=== PATIENT | female | born 1955 | race Caucasian/White ===

== ENCOUNTER 2022-06-17 15:00 | Outpatient (CLI) | payer MEDICARE, SELFPAY ==
--- NOTE | ~2022-06-17 | MM_ITS ---
EXAMINATION: MM screening [facility] [place] HISTORY: Screening mammogram TECHNIQUE: Craniocaudal and mediolateral oblique 3-D tomosynthesis images were obtained and synthetic 2-D images were generated. CAD analysis was submitted and interpreted. COMPARISON: 04/16/2021, 01/08/2020, 11/01/2017 BREAST PARENCHYMAL COMPOSITION: There are scattered areas of fibroglandular density. FINDINGS: No suspicious mass, calcification, or architectural distortion are identified in either [place] ast to suggest malignancy. There has been no suspicious interval change. IMPRESSION: 1. No mammographic evidence of malignancy. 2. Recommend routine screening mammography in one year. BI-RADS Category 1: Negative Reviewed, dictated and finalized at location A. [employer]
== END 2022-06-17 15:01 | disposition home or self-care (01) ==
LOC: ANHIMG 15:03
PROVIDERS: PCP Family Medicine; Visit Provider Obstetrics & Gynecology
DX: Z12.31 Encounter for screening mammogram for malignant neoplasm of breast (principal)
CPT/HCPCS: 77063; 77067

== ENCOUNTER 2023-08-13 08:49 | Outpatient (CLI) | payer MEDICARE, SELFPAY ==
--- NOTE | ~2023-08-13 | MM_ITS ---
EXAMINATION: MM screening [facility] [place] HISTORY: Screening mammogram TECHNIQUE: Craniocaudal and mediolateral oblique 3-D tomosynthesis images were obtained and synthetic 2-D images were generated. CAD analysis was submitted and interpreted. COMPARISON: 06/17/2022, 04/16/2021 bilateral screening mammogram examinations BREAST PARENCHYMAL COMPOSITION: There are scattered areas of fibroglandular density. FINDINGS: Biopsy marker on the left; history of prior benign left breast biopsy. Occasional bilateral benign calcifications. There is no evidence of suspicious mass, calcification, o r architectural distortion to suggest malignancy in either breast. There has been no suspicious inter devon change. IMPRESSION: 1. No mammographic evidence of malignancy. 2. Recommend routine screening mammography in one year. BI-RADS Category 2: Benign finding(s). Reviewed, dictated and finalized at location A.
== END 2023-08-13 08:50 | disposition home or self-care (01) ==
LOC: ANHIMG 08:51
PROVIDERS: PCP Family Medicine; Visit Provider Obstetrics & Gynecology
DX: Z12.31 Encounter for screening mammogram for malignant neoplasm of breast (principal)
CPT/HCPCS: 77063; 77067

== ENCOUNTER 2024-08-14 14:55 | Outpatient (CLI) | payer MEDICARE, SELFPAY ==
--- NOTE | ~2024-08-14 | MM_ITS ---
EXAMINATION: MM screening but[facility] BI [place] HISTORY: Screening TECHNIQUE: Craniocaudal and mediolateral oblique 3-D tomosynthesis images were obtained and synthetic 2-D images were generated. CAD analysis was submitted and interpreted. COMPARISON: Comparison to multiple prior studies sequentially, with oldest reviewed study dated 11/09. BREAST PARENCHYMAL COMPOSITION: Not dense: There are scattered areas of fibroglandular density. FINDINGS: There is no evidence of suspicious mass, calcification, or architectural distortion to sugg est malignancy in either breast. There has been no suspicious interval change. IMPRESSION: 1. No mammographic evidence of malignancy. 2. Recommend routine screening mammography in one year. BI-RADS Category 1: Negative Reviewed, dictated and finalized at location A.
--- OUTSIDE RECORDS SUMMARY | 2024-08-14 15:34 | XMS_ITS | Referral Summary ---
Author Organization [place] [id number] [facility] Address [address] [place] [address] Care Team Providers Care Application Development Director Name Role Phone Rica Uriarte MD Primary Care Provider [phone] Dereck Meza MD Unavailable [phone] Danielle Gomez MD Unavailable Fly Onofre MD Unavailable [phone] Encounters Date Type Department Care Team Description 08/07/2024 1:00 PM CDT Office Visit [facility] Otolaryngology [address] [place] [address] Rosario Clinton, EDITA Non-seasonal allergic rhinitis due to pollen (Primary Dx); Nasal septal perforation 07/28/2024 Telephone [facility] Cardiology [address] [facility] [address] [place] [address] Al Kaplan MD Test Results 07/17/2024 3:30 PM CDT Therapy [facility] OP Physical Therapy [address] [place] [address] [address] [place] [address] Spinal stenosis, unspecified spinal region 07/11/2024 12:00 PM CDT Office Visit [facility] Neurology [facility] [facility] [address] [place] [address] Hardy Keane Si, MD Essential tremor (Primary Dx); Tourettes syndrome; Migraine without aura and without status migrainosus, not intractable 07/10/2024 9:42 AM CDT - 07/10/2024 11:59 PM CDT Hospital Encounter [facility] Nuclear Medicine [address] [place] [address] Discharge Disposition: Discharge to home or self care 07/10/2024 9:41 AM CDT - 07/10/2024 11:59 PM CDT Hospital Encounter [facility] Nuclear Medicine [address] [place] [address] Discharge Disposition: Discharge to home or self care 07/10/2024 9:41 AM CDT - 07/10/2024 11:59 PM CDT Hospital Encounter [facility] Nuclear Medicine [address] [place] [address] Discharge Disposition: Discharge to home or self care 07/10/2024 9:41 AM CDT - 07/10/2024 11:59 PM CDT Hospital Encounter [facility] Nuclear Medicine [address] [place] [address] Aortic valve sclerosis; Benign essential hypertension; Paroxysmal atrial fibrillation (HCC); Diastolic dysfunction; Incomplete right bundle branch block; Pure hypercholesterolemia ; Precordial chest pain; Obstructive sleep apnea syndrome; Morbid obesity (HCC) Discharge Disposition: Discharge to home or self care 07/07/2024 1:10 PM CDT - 07/07/2024 11:59 PM CDT Hospital Encounter [facility] OP Cardiac Testing [address] [place] [address] Aortic valve sclerosis; Benign essential hypertension; Paroxysmal atrial fibrillation (HCC); Diastolic dysfunction; Incomplete right bundle branch block; Pure hypercholesterolemia ; Precordial chest pain; Obstructive sleep apnea syndrome; Morbid obesity (HCC) Discharge Disposition: Discharge to home or self care 07/04/2024 11:32 AM CDT - 07/04/2024 11:59 PM CDT Hospital Encounter [facility] Respiratory [address] [place] [address] Moderate persistent asthma without complication; Non-seasonal allergic rhinitis due to pollen; Periodic limb movement disorder; Obstructive sleep apnea syndrome; History of bariatric surgery; Nonsmoker; Psychophysiological insomnia Discharge Disposition: Discharge to home or self care 06/22/2024 11:30 AM CDT Office Visit [facility] [address] [facility] [address] [place] [address] Al Kaplan MD Aortic valve sclerosis (Primary Dx); Benign essential hypertension; Paroxysmal atrial fibrillation (HCC); Diastolic dysfunction; Incomplete right bundle branch block; Pure hypercholesterolemia ; Precordial chest pain; Obstructive sleep apnea syndrome; Morbid obesity (HCC) 06/12/2024 10:20 AM SECURITY OPERATIONS C[facility] ANALYST Lab [facility] Lab [address] [place] [address] Paroxysmal atrial fibrillation (HCC); Diastolic dysfunction; Aortic valve sclerosis; Incomplete right bundle branch block; Benign essential hypertension; Pure hypercholesterolemia ; Obstructive sleep apnea syndrome; Morbid obesity (HCC) 06/02/2024 10:30 AM SECUR[employer] OPERATIONS C[employer] ANALYST Office Visit [facility] [address] [facility] [address] [place] [id number] Kulwinder De La Torre PA Impingement syndrome of right shoulder (Primary Dx); Impingement syndrome of left shoulder from Last 3 Months Allergies Active Allergy Reactions Criticality Noted Date Comments Cephalosporins Rash,Hives Medium 08/23/2018 Codeine Nausea & Vomiting Low 02/07/2019 Codeine Phosphate Rash Medium 09/24/2011 codeine phosphate Fluoxetine Hives,Unknown,Rash Medium 08/22/2018 Other Hives Medium 07/11/2024 Pseudoephedrine Unknown,Other (See comments) 10/01/2022 pseudoephedrine Sulfa (Sulfonamide Antibiotics) Rash Medium 09/09/2010 Medications cholecalcifero l (VITAMIN D-3) 1,000 unit tablet Take 1 tablet (1,000 Units total) by mouth 2 (two) times a day Active vitamin b complex tablet Take 1 tablet by mouth daily Active lovastatin (MEVACOR) 40 mg tablet Take 1 tablet (40 mg total) by mouth nightly 10/18/19 16 Active traZODone (DESYREL) 50 mg tablet Take 1 tablet (50 mg total) by mouth nightly Active lansoprazole (PREVACID) 30 mg capsule Take 1 capsule (30 mg total) by mouth 2 (two) times a day Active valACYclovir (VALTREX) 1 gram tablet as needed Active ascorbic acid (OSIRIS-C ORAL) Take 1 capsule by mouth daily Active BIOTIN ORAL Take 1 tablet/capsul e by mouth daily Active multivitamin-i ally-folic acid 18-400 mg-mcg tablet Take 1 tablet by mouth daily Active coenzyme Q10 30 mg capsule Take 1 capsule (30 mg total) by mouth daily Active baclofen (LIORESAL) 10 mg tablet Take 1 tablet (10 mg total) by mouth 2 (two) times a day Takes once or twice a day 04/09/20 23 Active glucosamine-ch ondroitin 500-400 mg tablet Take 1 tablet by mouth 2 (two) times a day Active CALCIUM ORAL Take 1 tablet/capsul e by mouth daily Active magnesium gluconate 200 mg tabletIndicati ons:hypomagnes emia Take 1 tablet (200 mg total) by mouth daily Active albuterol HFA (PROVENTIL HFA,VENTOLIN HFA,PROAIR HFA) 90 mcg/actuation inhaler Inhale 2 puffs as needed for wheezing or shortness of breath 1 each 3 09/08/19 24 Active traMADoL (ULTRAM) 50 mg tablet TAKE 1 TABLET 3 TIMES A DAY BY ORAL ROUTE NEEDED. 10/03/19 24 Active apixaban (Eliquis) 5 mg tablet TAKE 1 TABLET BY MOUTH TWICE A DAY 180 tablet 2 02/14/20 24 Active propranoloL (INDERAL) 20 mg tabletIndicati ons:Essential tremor Take 1 tablet (20 mg total) by mouth 2 (two) times a day 180 tablet 3 07/12/19 25 026 Active haloperidoL (HALDOL) 2 mg tablet Take 1 tablet (2 mg total) by mouth 2 (two) times a day 180 tablet 3 07/12/19 25 026 Active sertraline (ZOLOFT) 50 mg tablet Take 1 tablet (50 mg total) by mouth nightly 90 tablet 3 07/12/19 25 026 Active lisinopriL (PRINIVIL,ZEST RIL) 20 mg tablet TAKE 1 TABLET BY MOUTH EVERY DAY 90 tablet 1 08/05/19 25 Active fluticasone-um eclidin-vilant er (Trelegy Ellipta) 100-62.5-25 mcg inhaler INHALE 1 PUFF DAILY 90 each 08/09/19 25 025 Active azelastine (ASTELIN) 137 mcg (0.1 %) nasal spray ADMINISTER 1 SPRAY INTO EACH NOSTRIL 2 TIMES A DAY DIRECTED 30 mL 3 08/15/19 25 Active fluticasone-um eclidin-vilant er (Trelegy Ellipta) 100-62.5-25 mcg inhaler Inhale 1 puff daily 90 each 3 04/29/19 24 025 Discontinued lisinopriL (PRINIVIL,ZEST RIL) 20 mg tablet TAKE 1 TABLET BY MOUTH EVERY DAY 90 tablet 1 12/14/19 24 025 Discontinued ipratropium (ATROVENT) 42 mcg (0.06 %) nasal spray Administer 2 sprays into each nostril 4 (four) times a day 15 mL 3 03/02/20 24 025 Discontinued(Lj cueto Reported) Active Problems Problem Noted Date Diagnosed Date Precordial chest pain 06/22/2024 Arthritis of left knee 09/16/2023 Presence of left artificial knee joint Instability of right knee joint 05/17/2023 Depression, unspecified 04/12/2023 Other intervertebral disc degeneration, lumbar r egion 04/12/2023 Spondylosis without myelopat hy or radiculopathy, lumbar region 04/12/2023 Tremor, unspecified 04/12/2023 Tourette's disorder 04/12/2023 Pulmonary air trapping 03/18/2023 Other thrombophilia 02/08/2023 Mass of neck 11/05/2022 Nasal septum ulceration 08/19/2022 Epistaxis 07/29/2022 Nasal septal perforation 07/29/2022 Wheezing 03/24/2022 Impingement syndrome of left shoulder 11/26/2021 Migraine without aura and wi thout status migrainosus, not intractable 05/27/2021 Pes anserinus bursitis of right knee 02/19/2021 Chronic tension-type headache, not intractable 0 12/17/2020 Assessment & Plan (12/17/2020 11:43 AM CDT): Patient's history of episodic headaches with historical description most consistent with episodic muscle contraction type headache. Over the past couple weeks the headache has subsided spontaneously. Her examination is neurologically unchanged. Observation from the neurological standpoint is most appropriate. She will follow-up per her previous scheduled appointment in May 2021. Magnetic resonance imaging of brain abnormal 10/2020 Assessment & Plan (12/17/2020 11:43 AM CDT): Patient underwent MRI which by reviewed report demonstrates increased fluid in the optic nerve sheaths bilaterally. Etiology of this is indeterminate at this time. I have recommended that at the time of her May 2019 to follow-up she can pursue a follow-up MRI brain with and without contrast for interval reassessment. If still present she may need a Neuro-Ophthalmology referral as well. Prediabetes 04/06/2020 Essential tremor 12/05/2019 Assessment & Plan (12/17/2020 11:42 AM CDT): Patient continues on propranolol for tremor suppression at this time with good tolerability and efficacy. She will keep her follow-up appointment in May 2021 for reassessment. Assessment & Plan (06/06/2020 4:00 PM SECUR[employer]PERATIONS [employer] ANALYST): Patient's history of essential tremor and gets good symptomatic relief with propranolol 20 mg b.i.d.. She has no tolerability issues with medication. She is in need of refill. I have renewed her propranolol as previously prescribed. I will see her back in 1 year. Assessment & Plan (12/05/2019 3:39 PM CDT): Patient has good suppression of essential tremor in her upper limbs with propranolol 20 mg b.i.d.. She has no tolerability issues with medication. I have renewed her propranolol 20 mg b.i.d. with a 90 day supply and 3-90 day refill extensions. Asbestos exposure 10/17/2019 BMI 40.0-44.9, adult 10/17/2019 Decreased diffusion capacity 06/13/2019 Dyspnea 06/13/2019 Exercise hypoxemia 06/13/2019 Incomplete right bundle branch block 05/01/2019 Osteoarthritis of left knee 12/05/2018 History of total knee arthroplasty 09/27/2018 Aftercare following right knee joint replacement surgery 09/27/2018 Encounter for removal of andrew 09/27/2018 Mild intermittent asthma without complication Hiatal hernia 08/23/2018 LAP-BAND surgery status 08/23/2018 Periodic limb movement disorder 08/23/2018 Aortic valve sclerosis 08/23/2018 Diastolic dysfunction 08/23/2018 Psychophysiological insomnia 08/23/2018 Non-seasonal allergic rhinitis due to pollen 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 0 08/22/2018 Hay fever 08/22/2018 Moderate recurrent major depression 10/14/2017 Obstructive sleep apnea syndrome 08/16/2017 Chronic atrial fibrillation 07/19/2017 Edema of lower extremity 05/11/2016 History of bariatric surgery 01/24/2016 Neck pain 01/09/2016 Overview (10/01/2023): Location: None;Severity: Moderate;Progress: Stable;Added By: Tammy Monaco;Add to Current Problems: YES Spinal stenosis in cervical region 12/12/2015 Restless legs 12/12/2015 Gastro-esophageal reflux disease without esophag itis 10/18/2015 Actinic keratosis 01/17/2015 Overview (08/30/2023): Location: None;Severity: Moderate;Progress: Stable;Added By: Rica Uriarte;Add to Current Problems: YES Candidal vulvovaginitis 01/17/2015 Overview (08/30/2023): Location: None;Severity: Moderate;Progress: Stable;Added By: Rica Uriarte;Add to Current Problems: YES Vitamin D deficiency 01/17/2015 Overview (10/01/2023): Location: None;Severity: Moderate;Progress: Stable;Added By: Rica Uriarte;Add to Current Problems: YES Bronchopneumonia 12/10/2014 Overview (08/30/2023): Location: None;Severity: Moderate;Progress: Stable;Added By: Rica Uriarte;Add to Current Problems: YES Fever 02/05/2014 Overview (10/01/2023): Location: None;Severity: Moderate;Progress: Stable;Added By: Rica Uriarte;Add to Current Problems: YES Location: None;Severity: Moderate;Progress: Stable;Added By: Tammy Monaco;Add to Current Problems: YES Cough 01/09/2014 Overview (08/30/2023): Location: None;Severity: Moderate;Progress: Stable;Added By: Rica Uriarte;Add to Current Problems: YES Dysuria 09/14/2013 Overview (10/01/2023): Location: None;Severity: Moderate;Progress: Stable;Added By: Evie Cheung;Add to Current Problems: NO Headache 08/18/2013 Overview (10/01/2023): Location: None;Severity: Moderate;Progress: Stable;Added By: Maddi Jade;Add to Current Problems: NO Otogenic otalgia 06/23/2013 Overview (10/01/2023): Location: None;Severity: Moderate;Progress: Stable;Added By: Maddi Jade;Add to Current Problems: NO Location: None;Severity: Moderate;Progress: Stable;Added By: Anahy Owens;Add to Current Problems: YES Fibromyositis 2012 Overview (10/01/2023): Location: None;Severity: Moderate;Progress: Stable;Added By: Tammy Monaco;Add to Current Problems: NO Local infection of skin and subcutaneous tissue 2012 Overview (10/01/2023): Location: None;Severity: Moderate;Progress: Stable;Added By: Kayley Pompa;Add to Current Problems: NO Pain in joint of left shoulder 07/21/2012 Overview (10/01/2023): Location: None;Severity: Moderate;Progress: Stable;Added By: Rica Uriarte;Add to Current Problems: NO Location: None;Severity: Moderate;Progress: Stable;Added By: Tammy Monaco;Add to Current Problems: NO Allergic rhinitis due to pollen 01/04/2012 Overview (10/01/2023): Location: None;Severity: Moderate;Progress: Stable;Added By: Adrienne Jalloh;Add to Current Problems: NO Benign essential hypertension 10/15/2011 Marquez de la Tourette's syndrome 10/15/2011 Assessment & Plan (12/17/2020 11:42 AM CDT): Patient continues with good tic suppression on haloperidol. She will continue present help. Dosing pending follow-up appointment in May 2021. Assessment & Plan (06/06/2020 3:59 PM SECUR[employer]PERATIONS [employer] ANALYST): Patient reports a reduction in motor tics following increase in haloperidol to 2 mg b.i.d.. She has no tolerability issues with medication is symptomatically pleased with her response. I have renewed her haloperidol as previously prescribed. I will see her back in the office in 1 year. Assessment & Plan (12/05/2019 3:40 PM CDT): Patient is a lifelong history of Tourette syndrome historically manifest as motor tics of the head neck. She has been using haloperidol 1 mg b.i.d. for a long time, but has been recently noticing under stressful situations an increase in dkus-fl-jhac head turning. She is interested in a potential increase in medication to try to suppress the head turning tic. I will increase her haloperidol 2 mg b.i.d. with a 1 month supply and 5 one- month refill extensions. I will see her back in 6 months for reassessment of the medication adjustment. Low back pain 10/15/2011 Pure hypercholesterolemia 10/15/2011 Overview (10/01/2023): Location: None;Severity: Moderate;Progress: Stable;Added By: Aide Mcpherson;Add to Current Problems: YES Location: None;Severity: Moderate;Progress: Stable;Added By: Rica Uriarte;Add to Current Problems: YES Bronchospasm 10/15/2011 Overview (08/30/2023): Location: None;Severity: Moderate;Progress: Stable;Added By: Rica Uriarte;Add to Current Problems: NO Low back pain 10/15/2011 Overview (10/01/2023): Location: None;Severity: Moderate;Progress: Stable;Added By: Tammy Monaco;Add to Current Problems: YES Nonsmoker 02/23/2011 Uncomplicated asthma 09/09/2010 Morbid obesity 06/04/2010 Resolved Problems Problem Noted Date Diagnosed Date Resolved Date Restrictive lung disease 09/06/201806/2019 Immunizations Immunization Administration Dates Next Due Influenza, Quadrivalent, Hig h Dose, Preservative Free, Intrr 02/02/2023 Influenza, Quadrivalent, Spl it, Intramuscular 01/07/2020,03/06/2019,03/08/2018,02/08,01/16/2016,01/17/2015 Influenza, Quadrivalent, Spl it, Preservative Free, Intramuscular 01/07/2020 Influenza, Trivalent, IM (MDV) 01/18/2014,2012 Influenza, Trivalent, Split, Preservative Free, Intradermal 02/03/2012 Pfizer SARS-CoV-2 Monovalent Vaccination (12+ Yrs) PURPLE 01/22/2021,06/18/2020,05/28/2020 Pneumococcal Conjugate PCV 13 01/17/2015 Pneumococcal Polysaccharide PPV23 01/22/2004 Td, adsorbed 01/23/2005 Tdap 01/17/2015 ZOSTER LIVE 02/08/2017 Social History Tobacco Use Types Packs/Day Years Used Date Smoking Tobacco: Never Smokeless Tobacco: Never Tobacco Cessation:Counseling Given: Not Answered Alcohol Use Standard Drinks/Week Comments Not Currently 0 (1 standard drink = 0.6 oz pur e alcohol) [facility] Utilities Answer Date Recorded In the past 12 months has [place], gas, oil, or water [employer] threatened to shut off services in your home? No 09/17/2023 Social Connection and Isolat ion Panel [NHANES] Answer Date Recorded In a typical week, how many times do you talk on the phone with family, friends, or neighbors? More than three times a week 09/17/2023 How often do you get togethe r with friends or relatives? More than three times a week 09/17/2023 How often do you attend chur ch or nondenominational services? Never 09/17/2023 Do you belong to any clubs o r organizations such as mosque groups, unions, fraternal or athletic groups, or school groups? No 09/17/2023 How often do you attend meet ings of the clubs or organizations you belong to? Never 09/17/2023 Are you , , di vorced, , never , or living with a partner? 09/17/2023 AUDIT-C Answer Date Recorded Q1: How often do you have a drink containing alcohol? Never 09/16/2023 Q2: How many drinks containi ng alcohol do you have on a typical day when you are drinking? Patient does not drink Q3: How often do you have si x or more drinks on one occasion? Never 09/16/2023 Overall Financial Resource Strain (CARDIA) Answe r Date Recorded How hard is it for you to pa y for the very basics like food, housing, medical care, and heating? Not hard at all 09/17/2023 Hunger Vital Sign Answer Date Recorded Within the past 12 months, y ou worried that your food would run out before you got the money to buy more. Never true 09/17/19 24 Within the past 12 months, t he food you bought just didn't last and you didn't have money to get more. Never true 09/17/2023 PRAPARE - Transportation Answer Date Re corded In the past 12 months, has l ack of transportation kept you from medical appointments or from getting medications? No 10/2023 In the past 12 months, has l ack of transportation kept you from meetings, work, or from getting things needed for daily living? No 09/17/2023 Housing Stability Vital Sign Answer [place] Recorded In the last 12 months, was t here a time when you were not able to pay the mortgage or rent on time? No 09/17/2023 In the past 12 months, how m any times have you moved where you were living? 1 09/17/2023 At any time in the past 12 m [facility], were you homeless or living in a senior living (including now)? No 09/17/2023 Personal Safety Answer Date Recorded Have you ever been in or are you currently in a harmful physical or emotional relationship or is someone making you feel afraid or unsafe? Denies 09/16/2023 Comments No Sex and Gender Information Value Date Recorded Sex Assigned at Not on file Legal Sex Female 10:04 PM SECUR[employer]PERATIONS [facility] ANALYST Gender Identity Not on file Sexual Orientation Not on file Last Filed Vital Signs Vital Sign Reading Time Taken Comments Blood Pressure 116/78 07/11/2024 11:50 AM CDT Pulse 54 07/11/2024 11:50 AM CDT Temperature 36.4 C (97.5 F) 03/02/2024 1:15 PM SECUR[employer] [facility]PERATIONS [facility] ANALYST Respiratory Rate 18 08/07/2024 1:09 PM CDT Oxygen Saturation 95% 07/10/2024 10:54 AM CDT Inhaled Oxygen Concentration - - Weight 91.6 kg (202 lb) 08/07/2024 1:09 PM CDT Height 157.5 cm (5' 2 ) 08/07/2024 1:09 PM CDT Body Mass Index 36.95 08/07/2024 1:09 PM CDT Plan of Treatment Not on file Medical Devices Implanted Type Area Commercial Electrician Device Identifier Shelf Expiration Date Model / Serial / Lot Titanium Right Knee Replacement Right: Knee Left Breast Markers Left: Breast [employer] Simplex P Radiopaque Full Dose Cement Bone Sterile 6191-1-010 - [id number] Implanted:Qty: 1 on 09/16/2023 by Mitchel Becker MD at [facility] Left: Knee [employer] 08/09/2025 6191-1-010 / / [id number] [employer] Elo Ii Left Knee 3 Baseplate Tibial Titanium Nonporous [id number] - [id number] Implanted:Qty: 1 on 09/16/2023 by Mitchel Becker MD at [facility] Left: Knee [employer] [id number] 03/19/2033 [id number] / / [id number] [employer] Elo Ii Cruciate Retaining Left Knee 4 Stem Femoral Nonporous [id number] - [id number] Implanted:Qty: 1 on 09/16/2023 by Mitchel Becker MD at [facility] Left: Knee [employer] [id number] 01/21/2032 [id number] / / [id number] [employer] Legion 10mm Cruciate Retaining High Flexion Knee 3-4 Insert [id number] - [id number] Implanted:Qty: 1 on 09/16/2023 by Mitchel Becker MD at [facility] Left: Knee [employer] [id number] 03/22/2033 [id number] / / [id number] [employer] Elo Ii 13mm 29mm Biconvex Knee Component Patellar Uhmwpe [id number] - [id number] Implanted:Qty: 1 on 09/16/2023 by Mitchel Becker MD at [facility] Left: Knee [employer] [id number] 06/04/2033 [id number] / / [id number] Procedures Procedure Name Priority Date/Time Associated Diagnosis Comments STRESS TEST FOR DUAL READ Schedule Routine, Read Routine (OP Routine) 07/10/2024 12:49 PM CDT Aortic valve sclerosis Benign essential hypertension Paroxysmal atrial fibrillation (HCC) Diastolic dysfunction Incomplete right bundle branch block Pure hypercholesterolemia Precordial chest pain Obstructive sleep apnea syndrome Morbid obesity (HCC) NM MPI SPECT (REST AND/OR STRESS) MULTIPLE STUDIES Schedule Routine, Read Routine (OP Routine) 07/10/2024 12:49 PM CDT Aortic valve sclerosis Benign essential hypertension Paroxysmal atrial fibrillation (HCC) Diastolic dysfunction Incomplete right bundle branch block Pure hypercholesterolemia Precordial chest pain Obstructive sleep apnea syndrome Morbid obesity (HCC) TRANSTHORACIC ECHO (TTE) COMPLETE W DOPPLER/CF WO CONTRAST Routine 07/07/2024 2:22 PM CDT Aortic valve sclerosis Benign essential hypertension Paroxysmal atrial fibrillation (HCC) Diastolic dysfunction Incomplete right bundle branch block Pure hypercholesterolemia Precordial chest pain Obstructive sleep apnea syndrome Morbid obesity (HCC) PULMONARY FUNCTION TEST (PFT) Routine 07/04/2024 12:49 PM CDT Moderate persistent asthma without complication Non-seasonal allergic rhinitis due to pollen Periodic limb movement disorder Obstructive sleep apnea syndrome History of bariatric surgery Nonsmoker Psychophysiological insomnia ECG 12-LEAD Routine 06/22/2024 11:29 AM CDT Aortic valve sclerosis Benign essential hypertension Paroxysmal atrial fibrillation (HCC) Diastolic dysfunction Incomplete right bundle branch block Pure hypercholesterolemia EGFR Routine 06/12/2024 10:26 AM SEC[employer] [facility]PER[employer] [facility] ANALYST Paroxysmal atrial fibrillation (HCC) Diastolic dysfunction Aortic valve sclerosis Incomplete right bundle branch block Benign essential hypertension Pure hypercholesterolemia Obstructive sleep apnea syndrome Morbid obesity (HCC) DIFFERENTIAL AUTO Routine 06/12/2024 10:26 AM SECUR[employer] [facility]PERATIONS C[facility] ANALYST Paroxysmal atrial fibrillation (HCC) Diastolic dysfunction Aortic valve sclerosis Incomplete right bundle branch block Benign essential hypertension Pure hypercholesterolemia Obstructive sleep apnea syndrome Morbid obesity (HCC) CBC WITH AUTO DIFFERENTIAL Routine 06/12/2024 10:26 AM [facility] Paroxysmal atrial fibrillation (HCC) Diastolic dysfunction Aortic valve sclerosis Incomplete right bundle branch block Benign essential hypertension Pure hypercholesterolemia Obstructive sleep apnea syndrome Morbid obesity (HCC) COMPREHENSIVE METABOLIC PANEL Routine 06/12/2024 10:26 AM [facility] Paroxysmal atrial fibrillation (HCC) Diastolic dysfunction Aortic valve sclerosis Incomplete right bundle branch block Benign essential hypertension Pure hypercholesterolemia Obstructive sleep apnea syndrome Morbid obesity (HCC) LIPID PANEL Routine 06/12/2024 10:26 AM [facility] Paroxysmal atrial fibrillation (HCC) Diastolic dysfunction Aortic valve sclerosis Incomplete right bundle branch block Benign essential hypertension Pure hypercholesterolemia Obstructive sleep apnea syndrome Morbid obesity (HCC) MAGNESIUM Routine 06/12/2024 10:26 AM [facility] Paroxysmal atrial fibrillation (HCC) Diastolic dysfunction Aortic valve sclerosis Incomplete right bundle branch block Benign essential hypertension Pure hypercholesterolemia Obstructive sleep apnea syndrome Morbid obesity (HCC) THYROID FUNCTION CASCADE Routine 06/12/2024 10:26 AM [facility]ST Paroxysmal atrial fibrillation (HCC) Diastolic dysfunction Aortic valve sclerosis Incomplete right bundle branch block Benign essential hypertension Pure hypercholesterolemia Obstructive sleep apnea syndrome Morbid obesity (HCC) IN ARTHROCENTESIS ASPIR&/INJ MAJOR JT/BURSA W/O US Routine 06/02/2024 10:30 AM [facility]ST Impingement syndrome of right shoulder Impingement syndrome of left shoulder HEPATITIS PANEL, ACUTE Routine 04/26/2013 3:59 PM [facility] [facility] ANALYST from Last 3 Months or Most Recently Relevant to Health Maintenance Results * NM MPI SPECT (Rest and/or Stress) Multiple Studies (07/10/2024 12:49 PM CDT) Anatomical Region Laterality Modality Body N/A Nuclear Medicine Impressions 07/11/2024 7:48 PM CDT 1. No scintigraphic evidence of myocardial ischemia. 2. Normal left ventricular size and systolic function. I personally supervised and interpreted the stress test. Copy to Rica Uriarte MD John Lehman, MD 07/11/2024 Narrative 07/11/2024 7:48 PM CDT Patient Id: Lis Choudhury is a 68 y.o. female. MR#: [id number] Study date: 07/10/2024 EXAM DESCRIPTION: NM MPI SPECT (REST AND/OR STRESS) MULTIPLE STUDIES RADIOPHARMACEUTICAL: Rest: 11 mCi Tc-99m tetrofosmin via right antecubital fossa IV site Pharmacologic Stress: 33 mCi Tc-99m tetrofosmin via right antecubital fossa IV site REASON FOR STUDY: Chest pain, paroxysmal atrial fibrillation, hypertension, hyperlipidemia, obstructive sleep apnea, obesity TECHNIQUE: After informed consent, standard myocardial perfusion SPECT images were obtained after resting tracer injection. Subsequently, an intravenous infusion of regadenoson was performed. Standard myocardial perfusion images were obtained after tracer injection at the peak effect of the drug. STRESS PORTION AND EKG: See separately dictated report for stress portion and EKG. FINDINGS: Study quality: No motion artifact. Image quality is adequate at rest and at stress. There is a medium size, moderate severity, nontransmural, inferoapical perfusion defect, which improves with stress imaging, suggestive of artifact. No significant reversible myocardial perfusion defects are seen. Gated post-stress images demonstrate normal left ventricular wall thickening, without global or focal wall motion abnormality. The left ventricular volume is normal . The left ventricular ejection fraction is 73 % (normal >45%). There is no evidence of transient ischemic dilation with calculated TID ratio of 0.92 . Al Kaplan MD IMG NM PROCEDURES Final Re sult * Stress Test for Myocardial Perfusion (07/10/2024 12:49 PM CDT) Anatomical Region Laterality Modality Nuclear Medicine Impressions 07/10/2024 11:55 AM CDT 1. EKG portion of the stress test is negative for ischemia. 2. Nuclear images pending. I personally supervised and interpreted the stress test. Copy to Rica Uriarte MD John Lehman, MD 07/10/2024 Narrative 07/10/2024 11:55 AM CDT Patient Id: Lis Choudhury is a 68 y.o. female. MR#: [id number] Study date: 07/10/2024 EXAM DESCRIPTION: STRESS LEXISCAN MYOVIEW TECHNIQUE: Baseline EKG: Sinus bradycardia Baseline blood pressure was 139/52 , and baseline heart rate was 52 . Stress test was performed according to Lexiscan protocol. Blood pressure after Lexiscan infusion was 73, and post infusion heart rate was 132/56. There were no EKG changes suggesting ischemia. There were no arrhythmias. SYMPTOMS: Patient denied chest pain or shortness of breath. Procedure Note Al Kaplan MD - 07/10/2024 Patient Id: Lis Choudhury is a 68 y.o. female. MR#: [id number] Study date: 07/10/2024 EXAM DESCRIPTION: STRESS LEXISCAN MYOVIEW TECHNIQUE: Baseline EKG: Sinus bradycardia Baseline blood pressure was 139/52 , and baseline heart rate was 52 . Stress test was performed according to Lexiscan protocol. Blood pressure after Lexiscan infusion was 73, and post infusion heartrate was 132/56. There were no EKG changes suggesting ischemia. There were noarrhythmias. SYMPTOMS: Patient denied chest pain or shortness of breath. IMPRESSION: 1. EKG portion of the stress test is negative for ischemia. 2. Nuclear images pending. I personally supervised and interpreted the stress test. Copy to Rica Uriarte MD John Lehman, MD 07/10/2024 us Al Kaplan MD CV STRESS PROCEDURES Final Result * TRANSTHORACIC ECHO (TTE) COMPLETE W DOPPLER/CF WO CONTRAST (07/07/2024 2:22 PM CDT) Anatomical Region Laterality Modality Ultrasound 07/07/2024 1:39 PM CDT Narrative 07/08/2024 12:37 AM CDT Transthoracic Echocardiographic Report Patient Name: LIS CHOUDHURY L : 1955 (68y 6m) Gender: F Study Date: 07/07/2024 01:39:32 PM Ht(Inch): 62 Wt(Lb): 208 BSA: 2.03 Dock Or Pier Laborer: Corazon Adkisn RDCS Order Provider: AL KAPLAN Heart Rate: 54 BMI: 38.04 BP: 128 / 72 Ref Provider: AL KAPLAN PROCEDURES: Echocardiographic Report: ([id number]) Transthoracic complete echo, 2D, spectral and tissue Doppler, color flow Doppler, M-mode. INDICATIONS: I35.8 Other nonrheumatic aortic valve disorders, I10 Essential (primary) hypertension, I48.0 Paroxysmal atrial fibrillation, I51.89 Other ill-defined heart diseases, I45.10 Unspecified right bundle-branch block, E78.00 Pure hypercholesterolemia, unspecified, R07.2 Precordial pain, G47.33 Obstructive sleep apnea (adult) (pediatric), and E66.01 Morbid (severe) obesity due to excess calories. FINDINGS: Left Ventricle: Normal left ventricular cavity size. Normal Left ventricular wall thickness. Normal left ventricular systolic function. The Ejection Fraction (Mendes's) is measured at 67 %. Diastolic Function E to E' ratio is 8-15 which is in the indeterminate zone and left ventricular diastolic parameters are consistent with Grade I diastolic dysfunction (normal LA pressure). Right Ventricle: Normal right ventricular size. Normal right ventricular systolic function. Left Atrium: The left atrium is normal in size. Right Atrium: The right atrium is normal in size. Atrial Septum: No shunt by color Doppler. Mitral Valve: Normal mitral valve leaflet structure. Mild mitral annular calcification. There is trace to mild mitral valve regurgitation. No mitral valve stenosis. The mitral valve area by pressure half-time is 1.7 cm2. The mean transmitral gradient is: 2 mmHg. Aortic Valve: Aortic valve not well visualized due to poor echo windows. No aortic regurgitation seen. No aortic valve stenosis. Tricuspid Valve: The tricuspid valve demonstrates normal leaflet structure. There is trace to mild tricuspid valve regurgitation. The estimated right ventricular systolic pressure is 24 mmHg. Normal estimated pulmonary artery systolic pressure. No tricuspid valve stenosis. Pulmonic Valve: Pulmonic Valve not well visualized due to poor echo windows. There is trace pulmonic regurgitation. No stenosis present. Pericardium: No pericardial effusion noted. Aorta: Normal aortic root. The aortic Sinus is normal in size. IVC: IVC Not well visualized due to poor echo windows. The estimated RA pressure is 3 mmHg. CONCLUSIONS: 1. Normal left ventricular cavity size. Normal Left ventricular wall thickness. Normal left ventricular systolic function. The Ejection Fraction (Mendes's) is measured at 67 %. Diastolic Function E to E' ratio is 8-15 which is in the indeterminate zone and left ventricular diastolic parameters are consistent with Grade I diastolic dysfunction (normal LA pressure). 2. Compared to echo 12/08/2022, no significant change. MEASUREMENTS: 2D/MM Value Range Doppler Value LVIDd 2D 4.94 cm [ 3.50 - 5.70 ] AV Peak Eusebio 1.69 m/s LVIDs 2D 3.26 cm [ 3.10 - 4.60 ] AV Peak PG 11.42 mmHg IVSd 2D 1.04 cm [ 0.60 - 1.20 ] LVOT Peak Eusebio 1.14 m/s LVPWd 2D 1.00 cm [ 0.60 - 1.10 ] LVOT Peak PG 5.20 mmHg LV Thickness Ratio 1.04 LVOT Diam 2.00 cm LV Mass 2D 187.09 g NITIN Vmax 2.12 cm2 LV Mass Index 2D 92.16 g/m2 MV E Peak Eusebio 0.83 m/s RWT 0.40 MV A Peak Eusebio 1.00 m/s EDV Mod BP 73.50 ml [ 46.00 - 106.00 ] MV E/A 0.80 ratio LV EDV Index 36.21 ml/m2 MV Peak Eusebio 1.13 m/s ESV Mod BP 24.20 ml [ 14.00 - 42.00 ] MV Peak PG 5.11 mmHg EF Mod BP 67 % [ 54 - 74 ] MV Mean PG 2.00 mmHg LA Dimension 2D 3.30 cm [ 1.90 - 4.00 ] MV VTI 44.30 cm AoR Diam 2D 3.30 cm [ 2.00 - 3.70 ] MV PHT Peak Eusebio 0.96 m/s Ao Root Index 1.63 cm/m2 [ 1.00 - 2.00 ] MV PHT 132.00 ms MVA PHT 1.67 cm2 MV Decel Time 264.00 msec Med E` Eusebio 5.77 cm/sec Lat E` Eusebio 8.92 cm/sec Average E/E` 11.30 TV Peak Eusebio 0.45 m/s TV Peak PG 0.81 mmHg RV S` 10.00 cm/sec TR Peak Eusebio 2.31 m/s TR Peak PG 21.3 mmHg RA Pressure 3.00 mmHg RVSP 24.30 mmHg PV Peak Eusebio 1.18 m/s PV Peak PG 5.57 mmHg - ATTESTATION: I have reviewed and interpreted the pertinent images and measurements of this study. I attest to the conclusions in the final report that is provided above. DISCLAIMER: The study images and the final report will be retained in the patient chart by the [facility] for the legally required time period. This chart constitutes the legal record of any testing performed. Electronically Signed By: Al Kaplan MD 07/08/2024 12:36:23 AM CDT Procedure Note Al Kaplan MD - 07/08/2024 Transthoracic Echocardiographic Report Patient Name: LIS CHOUDHURY L : 1955 (68y 6m) Gender: F Study Date: 07/07/2024 01:39:32 PM Ht(Inch): 62 Wt(Lb): 208 BSA: 2.03 Dock Or Pier Laborer: Corazon Adkins [facility] Order Provider: AL KAPLAN Heart Rate: 54 BMI: 38.04 BP: 128 / 72 Ref Provider: AL KAPLAN PROCEDURES: Echocardiographic Report: ([id number]) Transthoracic complete echo, 2D,spectral and tissue Doppler, color flow Doppler, M-mode. INDICATIONS: I35.8 Other nonrheumatic aortic valve disorders, I10 Essential (primary)hypertension, I48.0 Paroxysmal atrial fibrillation, I51.89 Other ill-defined heartdiseases, I45.10 Unspecified right bundle-branch block, E78.00 Pure hypercholesterolemia,unspecified, R07.2 Precordial pain, G47.33 Obstructive sleep apnea (adult) (pediatric),and E66.01 Morbid (severe) obesity due to excess calories. FINDINGS: Left Ventricle: Normal left ventricular cavity size. Normal Leftventricular wall thickness. Normal left ventricular systolic function. The EjectionFraction (Mendes's) is measured at 67 %. Diastolic Function E to E' ratio is 8-15 which is inthe indeterminate zone and left ventricular diastolic parameters areconsistent with Grade I diastolic dysfunction (normal LA pressure). Right Ventricle: Normal right ventricular size. Normal right ventricularsystolic function. Left Atrium: The left atrium is normal in size. Right Atrium: The right atrium is normal in size. Atrial Septum: No shunt by color Doppler. Mitral Valve: Normal mitral valve leaflet structure. Mild mitral annularcalcification. There is trace to mild mitral valve regurgitation. No mitral valvestenosis. The mitral valve area by pressure half-time is 1.7 cm2. The mean transmitral gradientis: 2 mmHg. Aortic Valve: Aortic valve not well visualized due to poor echo windows.No aortic regurgitation seen. No aortic valve stenosis. Tricuspid Valve: The tricuspid valve demonstrates normal leafletstructure. There is trace to mild tricuspid valve regurgitation. The estimated rightventricular systolic pressure is 24 mmHg. Normal estimated pulmonary artery systolic pressure.No tricuspid valve stenosis. Pulmonic Valve: Pulmonic Valve not well visualized due to poor echowindows. There is trace pulmonic regurgitation. No stenosis present. Pericardium: No pericardial effusion noted. Aorta: Normal aortic root. The aortic Sinus is normal in size. IVC: IVC Not well visualized due to poor echo windows. The estimated RApressure is 3 mmHg. CONCLUSIONS: 1. Normal left ventricular cavity size. Normal Left ventricular wallthickness. Normal left ventricular systolic function. The Ejection Fraction (Mendes's) ismeasured at 67 %. Diastolic Function E to E' ratio is 8-15 which is in the indeterminatezone and left ventricular diastolic parameters are consistent with Grade I diastolicdysfunction (normal LA pressure). 2. Compared to echo 12/08/2022, no significant change. MEASUREMENTS: 2D/MM Value Range DopplerValue LVIDd 2D 4.94 cm [ 3.50 - 5.70 ] AV Peak Vel1.69 m/s LVIDs 2D 3.26 cm [ 3.10 - 4.60 ] AV Peak PG11.42 mmHg IVSd 2D 1.04 cm [ 0.60 - 1.20 ] LVOT Peak Vel1.14 m/s LVPWd 2D 1.00 cm [ 0.60 - 1.10 ] LVOT Peak PG5.20 mmHg LV Thickness Ratio 1.04 LVOT Diam2.00 cm LV Mass 2D 187.09 g NITIN Vmax2.12 cm2 LV Mass Index 2D 92.16 g/m2 MV E Peak Vel0.83 m/s RWT 0.40 MV A Peak Vel1.00 m/s EDV Mod BP 73.50 ml [ 46.00 - 106.00 ] MV E/A0.80 ratio LV EDV Index 36.21 ml/m2 MV Peak Vel1.13 m/s ESV Mod BP 24.20 ml [ 14.00 - 42.00 ] MV Peak PG5.11 mmHg EF Mod BP 67 % [ 54 - 74 ] MV Mean PG2.00 mmHg LA Dimension 2D 3.30 cm [ 1.90 - 4.00 ] MV VTI44.30 cm AoR Diam 2D 3.30 cm [ 2.00 - 3.70 ] MV PHT Peak Vel0.96 m/s Ao Root Index 1.63 cm/m2 [ 1.00 - 2.00 ] MV KPQ384.00 ms MVA PHT 1.67 cm2 MV Decel Time 264.00 msec Med E` Eusebio 5.77 cm/sec Lat E` Eusebio 8.92 cm/sec Average E/E` 11.30 TV Peak Eusebio 0.45 m/s TV Peak PG 0.81 mmHg RV S` 10.00 cm/sec TR Peak Eusebio 2.31 m/s TR Peak PG 21.3 mmHg RA Pressure 3.00 mmHg RVSP 24.30 mmHg PV Peak Eusebio 1.18 m/s PV Peak PG 5.57 mmHg - ATTESTATION: I have reviewed and interpreted the pertinent images and measurements ofthis study. I attest to the conclusions in the final report that is provided above. DISCLAIMER: The study images and the final report will be retained in the patientchart by the [facility] for the legally required time period. This chart constitutesthe legal record of any testing performed. Electronically Signed By: Al Kaplan MD 07/08/2024 12:36:23 AM CDT Al Kaplan MD CV ECHO PROCEDURES Final R esult * Pulmonary Function Test - (07/04/2024 12:49 PM CDT) FVC PRE 2.55 L 07/04/2024 12:[address] [facility] FEV1 PRE 2.18 L 07/04/2024 12:[address] [facility] [id number] 85.43 % 07/04/2024 12:[address] [facility] IPV66-61% PRE 2.98 L/s 07/04/2024 12:[address] [facility] PEF PRE 4.37 L/s 07/04/2024 12:[address] [facility] DLCOc SB 12.00 ml/(min*mm Hg) 07/04/2024 12:[address] [facility] DLCO/VA PRE 3.79 ml/(min*mm Hg*L) 07/04/2024 12:[address] [facility] VA 3.17 L 07/04/2024 12:[address] [facility] TLC PRE 5.07 L 07/04/2024 12:[address] [facility] VC PRE 2.59 L 07/04/2024 12:[address] [facility] IC PRE 2.15 L 07/04/2024 12:[address] [facility] FRC PL PRE 2.93 L 07/04/2024 12:[address] [facility] ERV PRE 0.45 L 07/04/2024 12:[address] [facility] RV PRE 2.48 L 07/04/2024 12:[address] [facility] RAW PRE 2.07 cmH2O*s/L 07/04/2024 12:[address] [facility] VTG 3.09 L 07/04/2024 12:[address] [facility] Anatomical Region Laterality Modality PFT 07/04/2024 11:5 1 AM CDT Impressions 07/05/2024 3:31 PM CDT 1. Spirometry is normal. 2. Lung volumes are normal. 3. Mild diffusion impairment. 4. 6 minute walk test performed. Patient walk 920 ft. Patient maintain oxygen saturation 92-98%. Patient did not require supplemental oxygen with ambulation. Clinical correlation is advised. Electronically signed by Josemanuel Centeno, Pulmonary & Critical Care Narrative 07/05/2024 3:31 PM CDT PULMONARY FUNCTION TESTS Lis Choudhury 68 y.o. 07/05/2024 INTERPRETATION Please see technologist's comments mentioned in attached results report. SPIROMETRY: Pre bronchodilator FEV1 is 103 % predicted, FVC is 94 % predicted, FEV1/FVC is 85 Bronchodilator response: Not assessed Inspection of the patient's flow-volume loops shows: Normal configuration of the inspiratory and expiratory limbs. LUNG VOLUMES: Lung volumes by body plethysmography: TLC is 111 % predicted, RV is 130 % predicted DLCO: Unadjusted for hemoglobin and carboxyhemoglobin DLCO is 59 % predicted Result [facility] Fly Onofre MD PFT ORDERABLES Final Resul t * ECG 12 lead (06/22/2024 11:29 AM CDT) Al Kaplan MD ECG ORDERABLES Final Resu lt * eGFR (06/12/2024 10:26 AM [facility] [facility] ANALYST) eGFR >90 >=60 mL/min/1. 73 m2 Comment: Interpretive Data Reference Interval Normal >/= 90 mL/min/1.73m2 Mildly decreased* 60 - 89 mL/min/1.73m2 Mildly to moderately decreased 45 - 59 mL/min/1.73m2 Moderately to severely decreased 30 - 44 mL/min/1.73m2 Severely decreased 15 - 29 mL/min/1.73m2 Kidney Failure < 15 mL/min/1.73m2 *Relative to young adult level Estimated glomerular filtration rate is determined by the 2020 CKD-EPI equation recommended by the National Kidney Foundation (A Unifying Approach to GFR Estimation: Recommendations of the NKF-ASK Task Force on Reassessing the Inclusion of Race in Diagnosing Kidney Disease, JASN 2020). The CKD-EPI equation should not be used for patients with unstable renal function and has not been validated in children and those over 70. Current interpretive data was last reviewed 2021. Blood 06/12/2024 10:2 6 AM [facility] ANALYST 06/12/2024 11:06 AM [facility] ANALYST Al Kaplan MD LAB BLOOD ORDERABLES Final Result KIRSTIE GUILLEN [address] [facility] [place] [address] * Differential, auto (06/12/2024 10:26 AM SEC[facility] ANALYST) Pathologist [facility] Neutrophil abs 6.0 1.5 - 6.5 K/cumm Imm gran abs 0.1 0.0 - 0.1 K/cumm [facility] Lymphocyte abs 2.9 0.8 - 3.3 K/cumm [facility] Monocyte abs 0.7 0.2 - 0.8 K/cumm [facility] Eosinophil abs 0.1 0.0 - 0.5 K/cumm [facility] Basophil abs 0.0 0.0 - 0.1 K/cumm [facility] Neutrophil pct 60.9 % [facility] Comment: Interpretive Data Percent cell count reference ranges are not reported, since discordance with absolute values may lead to misinterpretation of CBC data. Current Interpretive Data was last revised on 2017. Imm gran pct 1.0 % [facility] Comment: Interpretive Data Percent cell count reference ranges are not reported, since discordance with absolute values may lead to misinterpretation of CBC data. Current Interpretive Data was last revised on 2017. Lymphocyte pct 29.6 % [facility] Comment: Interpretive Data Percent cell count reference ranges are not reported, since discordance with absolute values may lead to misinterpretation of CBC data. Current Interpretive Data was last revised on 2017. Monocyte pct 7.0 % [facility] Comment: Interpretive Data Percent cell count reference ranges are not reported, since discordance with absolute values may lead to misinterpretation of CBC data. Current Interpretive Data was last revised on 2017. Eosinophil pct 1.1 % [facility] Comment: Interpretive Data Percent cell count reference ranges are not reported, since discordance with absolute values may lead to misinterpretation of CBC data. Current Interpretive Data was last revised on 2017. Basophil pct 0.4 % [facility] Comment: Interpretive Data Percent cell count reference ranges are not reported, since discordance with absolute values may lead to misinterpretation of CBC data. Current Interpretive Data was last revised on 2017. Blood 06/12/2024 10:2 6 AM [facility] ANALYST 06/12/2024 11:06 AM SEC[facility] [facility] ANALYST us Al Kaplan MD LAB BLOOD ORDERABLES Final Result KIRSTIE [address] [facility] [place] [address] * Thyroid Function Dare (06/12/2024 10:26 AM SEC[facility] ANALYST) Pathologist [facility] TSH 1.73 0.30 - 4.20 mcIUnit/mL Blood 06/12/2024 10:2 6 AM [facility] ANALYST 06/12/2024 11:06 AM [facility] ANALYST Al Kaplan MD LAB BLOOD ORDERABLES Final Result Performing Organization Address City/[facility] Co de Phone Number [facility] [address] [place] [address] * (ABNORMAL) CBC with auto differential (06/12/2024 10:26 AM SEC[facility] ANALYST) [facility] WBC 9.9 3.8 - 9.9 K/cumm Hgb 12.4 11.9 - 15.5 g/dL [facility] Hct 38.5 35.6 - 45.5 % [facility] Plt 275 150 - 400 K/cumm [facility] MPV 9.7 9.1 - 12.3 fL [facility] RBC 4.44 3.90 - 5.20 M/cumm [facility] MCV 86.7 81.3 - 96.4 fL [facility] MCH 27.9 27.1 - 33.3 pg [facility] MCHC 32.2(L) 32.3 - 35.7 g/dL [facility] RDW CV 14.8 11.1 - 14.9 % [facility] RDW SD 47.0 35.7 - 48.1 fL [facility] NRBC abs 0.00 0.00 - 0.01 K/cumm [facility] Blood 06/12/2024 10:2 6 AM [facility] ANALYST 06/12/2024 11:06 AM [facility] ANALYST Al Kaplan MD LAB BLOOD ORDERABLES Final Result Performing Organization Address City/[facility] Co de Phone Number KIRSTIE [address] [place] [employer] [place] [address] * Magnesium (06/12/2024 10:26 AM SEC[facility] ANALYST) [facility] Magnesium 1.8 1.4 - 2.5 mg/dL Blood 06/12/2024 10:2 6 AM [facility] ANALYST 06/12/2024 11:06 AM [facility] ANALYST Al Kaplan MD LAB BLOOD ORDERABLES Final Result KIRSTIE GUILLEN [address] [facility] [place] [address] * Lipid panel (06/12/2024 10:26 AM SEC[facility] [facility] ANALYST) Cholesterol 155 30 - 199 mg/dL Comment: Interpretive Data Ages < or = 19 years Acceptable: <170 mg/dL Borderline high: 170-199 mg/dL High: >or= 200 mg/dL Ages > or = 20 years Desirable: <200 mg/dL Borderline high: 200-239 mg/dL High: >or= 240 mg/dL Literature References: 1. Expert Panel on Integrated Guidelines for Cardiovascular Health and Risk Reduction in Children and Adolescents. Pediatrics 2011;128:S213 2. NCEP Expert Panel. Circulation 2004;110:227 Current Interpretive Data was last revised on 2017. Triglycerides 126 <=149 mg/dL KIRSTIE Comment: Interpretive Data Ages < or = 9 years Acceptable: <75 mg/dL Borderline high: 75-99 mg/dL High: >or= 100 mg/dL Ages 10 to 20 years Acceptable: <90 mg/dL Borderline high: 90-129 mg/dL High: >or= 130 mg/dL Ages > or = 20 years Desirable: <150 mg/dL Borderline high: 150-199 mg/dL High: 200-499 mg/dL Very high: >or= 499 mg/dL Literature References: 1. Expert Panel on Integrated Guidelines for Cardiovascular Health and Risk Reduction in Children and Adolescents. Pediatrics 2011;128:S213 2. NCEP Expert Panel. Circulation 2004;110:227 Current Interpretive Data was last revised on 2017. HDL 54 >=40 mg/dL KIRSTIE GUILLEN Comment: Interpretive Data Ages < or = 19 years Acceptable: >45 mg/dL Borderline low: 40-45 mg/dL Low: <40 mg/dL Ages > or = 20 years Desirable: >or= 60 mg/dL Low: <40 mg/dL Literature References: 1. Expert Panel on Integrated Guidelines for Cardiovascular Health and Risk Reduction in Children and Adolescents. Pediatrics 2011;128:S213 2. NCEP Expert Panel. Circulation 2004;110:227 Current Interpretive Data was last revised on 2017. LDL, calculated 79 <=129 mg/dL KIRSTIE GUILLEN Comment: Interpretive Data Ages < or = 19 years Acceptable: <110 mg/dL Borderline high: 110-129 mg/dL High: >or= 130 mg/dL Ages > or = 20 years Optimal: <100 mg/dL Near optimal: 100-129 mg/dL Borderline high: 130-159 mg/dL High: >160 mg/dL Calculated using the Ghulam LDL-C estimating equation. This equation was implemented on 2023. Prior to this date LDL-C was estimated using the Friedewald equation. Literature References: 1. Expert Panel on Integrated Guidelines for Cardiovascular Health and Risk Reduction in Children and Adolescents. Pediatrics 2011;128:S213 2. NCEP Expert Panel. Circulation 2004;110:227 3. Ghulam Sneed et al. RONEN Cardiol. 2019August 10;5(5):540-548. doi: 10.1001/[email or web address] Current Interpretive Data was last revised on 2023. Non-HDL Cholesterol 101 mg/dL KIRSTIE GUILLEN Comment: Interpretive Data Ages < or = 19 years Acceptable: <120 mg/dL Borderline high: 120-144 mg/dL High: >145 mg/dL Ages > or = 20 years When triglycerides are >200 mg/dL, Non-HDL cholesterol is a secondary target of therapy with treatment goals that are 30 mg/dL greater than the LDL cholesterol target. Literature References: 1. Expert Panel on Integrated Guidelines for Cardiovascular Health and Risk Reduction in Children and Adolescents. Pediatrics 2011;128:S213 2. NCEP Expert Panel. Circulation 2004;110:227 Current Interpretive Data was last revised on 2017. Chol/HDL ratio 3 KIRSTIE GUILLEN Blood 06/12/2024 10:2 6 AM SECURITY OPERATIONS CENTER ANALYST 06/12/2024 11:06 AM SECURITY OPERATIONS CENTER ANALYST us Al Kaplan MD LAB BLOOD ORDERABLES Final Result KIRSTIE GUILLEN [address] [place] [address] [place] [address] * Comprehensive metabolic panel (06/12/2024 10:26 AM SECURITY OPERATIONS CENTER ANALYST) Sodium 137 135 - 145 mmol/L Potassium, pl 4.1 3.3 - 4.9 mmol/L [facility] Chloride 98 97 - 110 mmol/L [facility] CO2 26 22 - 32 mmol/L [facility] Anion gap 13 2 - 15 mmol/L [facility] BUN 13 6 - 25 mg/dL [facility] Creatinine 0.69 0.60 - 1.10 mg/dL [facility] Glucose 101 70 - 199 mg/dL [facility] Comment: Interpretive Data Fasting glucose >/= 126 mg/dl is diagnostic for diabetes. Fasting is defined as no caloric intake for at least 8 hours. Fasting glucose between 100 mg/dl to 125 mg/dl is diagnostic of prediabetes. In a patient with classic symptoms of hyperglycemia or hyperglycemic crisis, a random glucose >/= 200 mg/dl is diagnostic for diabetes. In the absence of unequivocal hyperglycemia, results should be confirmed by repeat testing. The classification and Diagnosis of Diabetes Diabetes Care 2021; 46: S19-S40. Current interpretive data was last revised 2022. Calcium 9.9 8.5 - 10.3 mg/dL [facility] Bilirubin, total 0.3 0.1 - 1.2 mg/dL [facility] Protein, pl 7.4 6.5 - 8.5 g/dL [facility] Albumin 4.3 3.5 - 5.0 g/dL [facility] Alk phos 97 40 - 130 Units/L [facility] ALT 13 7 - 45 Units/L [facility] AST 16 10 - 45 Units/L [facility] Blood 06/12/2024 10:2 6 AM SECURITY OPERATIONS CENTER ANALYST 06/12/2024 11:06 AM SECURITY OPERATIONS CENTER ANALYST us Al Kaplan MD LAB BLOOD ORDERABLES Final Result KIRSTIE [address] [place] [address] * IN ARTHROCENTESIS ASPIR&/INJ MAJOR JT/BURSA W/O US (06/02/2024 10:30 AM SECURITY OPERATIONS CENTER ANALYST) Narrative Kulwinder De La Torre PA - 06/02/2024 10:30 AM SECURITY OPERATIONS CENTER ANALYST Kulwinder De La Torre PA 06/02/2024 10:54 AM Large Joint (Hip, Knee, Shoulder) Injection: bilateral subacromial bursa Performed by: Kulwinder De La Torre PA Authorized by: Kulwinder De La Torre PA Large Joint Injection/Aspiration: Consent Given by: Patient Verbal consent obtained: Yes Supporting Documentation: Indications: Pain Procedure Details: Location: Shoulder Site: Bilateral subacromial bursa Prep: patient was prepped using a clean technique Needle Size: 22 G Ultrasound guided: No Medications Right Large Joint Injection: 1 mL lidocaine 10 mg/mL (1 %); 40 mg triamcinolone 40 mg/mL Medications Left Large Joint Injection: 1 mL lidocaine 10 mg/mL (1 %); 40 mg triamcinolone 40 mg/mL Patient tolerance: Patient tolerated the procedure well with no immediate complications Kulwinder JOINER IN CLINIC/BEDSIDE ORDERAB LES Final Result * Hepatitis panel, acute (04/26/2013 3:59 PM SECURITY OPERATIONS CENTER ANALYST) HepBsAg NONREACT NONREACTIVE 04/26/2013 5:12 PM SECURITY OPERATIONS CENTER ANALYST [facility] - Golden Lines HISTORICAL RESULTS Comment: Siemens CentaurXP using FRANKLIN (chemiluminescent immunoassay) technology. NONREACTIVE: IgM antibodies to Hepatitis B Surface antigen not detected. REACTIVE: IgM antibodies to Hepatitis B Surface antigen detected. Reactive results will be confirmed by neutralization testing. HBsAb (immune status) NONREACT NONREACTIVE 04/26/2013 5:12 PM SECURITY OPERATIONS CENTER ANALYST [facility] [employer] HISTORICAL RESULTS Comment: Siemens CentaurXP using FRANKLIN (chemiluminescent immunoassay) technology. NONREACTIVE: IgM antibodies to Hepatitis B Surface antibody not detected. REACTIVE: IgM antibodies to Hepatitis B Surface antibody detected. Hep B core IgM NONREACT NONREACTIVE 4 5:41 PM SECURITY OPERATIONS CENTER ANALYST [facility] [employer] HISTORICAL RESULTS Comment: Siemens CentaurXP using FRANKLIN (chemiluminescent immunoassay) technology. NONREACTIVE: IgM antibodies to Hepatitis B Core antigen not detected. EQUIVOCAL: IgM antibodies to Hepatitis B Core antigen may or may not be present. Obtain a new specimen and retest. REACTIVE: IgM antibodies to Hepatitis B Core antigen detected. Hep A IgM NONREACT NONREACTIVE 04/26/2013 5:41 PM SECURITY OPERATIONS CENTER ANALYST [facility] HISTORICAL RESULTS Comment: Siemens CentaurXP using FRANKLIN (chemiluminescent immunoassay) technology. NONREACTIVE: IgM antibodies to Hepatitis A not detected. This does not exclude possibility of exposure to Hepatitis A or early acute infection. EQUIVOCAL:IgM antibodies to Hepatitis A may or may not be present. Suggest recollection and retest. REACTIVE: Antibodies to Hepatitis A detected. Hep C Ab NONREACT NONREACTIVE 04/26/2013 6:31 PM SECURITY OPERATIONS CENTER ANALYST [facility] HISTORICAL RESULTS Comment: Siemens CentaurXP using FRANKLIN (chemiluminescent immunoassay) technology. NONREACTIVE: Antibodies to Hepatitis C not detected. This does not exclude early acute Hepatitis C infection, possibility of exposure to Hepatitis C, antibodies below detection limit, or to lack of antibody reactivity to the antigen used in this assay. EQUIVOCAL: Antibodies to Hepatitis C may or may not be present. Sample to be confirmed by real-time PCR method. REACTIVE: Antibodies to Hepatitis C detected. 04/26/2013 3:59 PM SECURITY OPERATIONS CENTER ANALYST 04/26/2013 4:16 PM SECURITY OPERATIONS CENTER ANALYST us Cole Carrasco MD LAB MICROBIOLOGY - GENERAL O RDERABLES Final Result [facility] HISTORICAL RESULTS from Last 3 Months or Most Recently Relevant to Health [place] [address] [employer] MEDICARE [facility] Address: [facility] [address] [place] [id number] [address] [employer] MEDICARE [place] [id number] [place] [address] Advance Directives For more information, please contact: [phone] Documents on File Type Date Recorded Patient Radiator Specialist Expl anation ADVANCE DIRECTIVE 09/02/2023 12:57 PM Madai r of Rigging Engineer-Medical ADVANCE DIRECTIVE 07/05/2014 12:00 AM MADAI R OF KITCHEN [employer]NER FINANCIAL/MEDICAL * Full Code (Latest Code Status on File) Date Activated Date Inactivated Comments 09/16/2023 12:01 PM 09/17/2023 7:19 PM Care Teams Application Development Director Relationship Specialty Start Date End Date Rica Uriarte MD [address] [address] PCP - General 08/05/16 Dereck Meza MD [address] [facility] [address] [address] Gage Maker Cardiovascular Disease 07/18/18 Danielle Gomez MD [address] [facility] [address] [address] Consulting Physician Pain Management 06/25/22 Fly Onofre MD [address] [facility], [address] [address] Consulting Physician Pulmonary Disease 08/12/23
--- OUTSIDE RECORDS SUMMARY | 2024-08-14 15:35 | XMS_ITS | Encounter Summary ---
Author Organization [facility] Address [address] [facility] [place] [address] Care Team Providers Care Rn Mds Coordinator Name Role Phone Rica Uriarte MD Primary Care Provider [phone] Encounter Details Date Type Department Care Team (Late st Contact Info) Description 01/09/2021 Lab Requisition [facility] [address] [facility] [place] [id number] Rubio Holt MD [address] [address] Social History Tobacco Use Types Packs/Day Years Used Date Smoking Tobacco: Never Smokeless Tobacco: Never Alcohol Use Standard Drinks/Week Comments Yes 0 (1 standard drink = 0.6 oz pur e alcohol) Comments Unknown Sex and Gender Information Value Date Recorded Sex Assigned at Not on file Legal Sex Female 5:35 PM RECONNAISSANCE MAN Gender Identity Not on file Sexual Orientation Not on file documented as of this encounter Plan of Treatment Not on file documented as of this encounter Procedures Procedure Name Priority Date/Time Associated Diagnosis Comments DERMATOPATHOLOGY Routine 01/07/2021 3:33 AM CDT documented in this encounter Results * DERMATOPATHOLOGY (01/07/2021 3:33 AM CDT) Case Report Dermatopathology Report Case: [id number] Authorizing Provider: Rubio Holt MD Collected: 01/07/2021 03:33 AM Ordering Location: [facility] Received: 01/09/2021 05:50 AM Pathologist: Tamie Nance MD Specimen: Skin, left yazdanism 1:44 PM CDT DERMATOPATHOLOGY LABORATORY Final Diagnosis Specimen A. 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 Path# [id number]. 1:44 PM CDT DERMATOPATHOLOGY LABORATORY Gross Description Specimen A: Received is one formalin filled container labeled with the patient's name and designated left yazdanism. The specimen consists of a shave biopsy measuring [id number]. Jar 0. 1:44 PM CDT DERMATOPATHOLOGY LABORATORY Microscopic Description Specimen A. SKIN, left yazdanism: The epidermis shows parakeratosis, full thickness disorderly maturation of keratinocytes, mitoses at different levels, and dyskeratotic cells. 1:44 PM CDT DERMATOPATHOLOGY LABORATORY Disclaimer An external and internal positive and negative controls are appropriate for the histochemical, immunohistochemical and immunofluorescence stain(s) in this case (if any), except where stated explicitly. The performance characteristics of the stain(s) cited in this report were developed and its performance characteristic determined by the Dermatopathology Laboratory at [facility], directed by Dr. Anum Tovar. These tests need not be, and therefore are not, approved by the [place] Food and Drug Administration. The tests are used for clinical purposes. Billing Codes Specimen Charges Stain Charges 67242 1 1:44 PM CDT DERMATOPATHOLOGY LABORATORY Embedded Images 1:44 PM CDT DERMATOPATHOLOGY LABORATORY Pathology/Cytolo gy TISSUE SPECIMEN FROM SKIN / Unknown 01/07/2021 3:33 AM CDT 01/09/2021 5:50 AM CDT us Rubio Holt MD LAB - PATHOLOGY/CYTOLOGY ORDER PHAM Final Result DERMATOPATHOLOGY LABORATORY [facility] - Department of Dermatology [address], [address] [phone] documented in this encounter Visit Diagnoses Not on filedocumented in this encounter Care Teams Rn Mds Coordinator Relationship Specialty Start Date End Date Rica Uriarte MD [address] [facility] [address] [place] [address] PCP - General 09/10/08 documented as of this encounter
--- OUTSIDE RECORDS SUMMARY | 2024-08-14 15:35 | XMS_ITS | Encounter Summary ---
Author Organization [facility] Facility Care Team Providers Care Machine Pecan Picker Name Role Phone Rica Uriarte MD Primary Care Provider [phone] Dereck Meza MD Unavailable [phone] Danielle Gomez MD Unavailable Fly Onofre MD Unavailable [phone] Encounter Details Date Type Department Care Team (Latest Contact Info) Description 09/07/2017 Orders Only [facility] ProviderPower MD [address] [place] [address] Social History Tobacco Use Types Packs/Day Years Used Date Smoking Tobacco: Never Comments Unknown Sex and Gender Information Value Date Recorded Sex Assigned at Not on file Legal Sex Female 10:04 PM BOX OFFICE MANAGER Gender Identity Not on file Sexual Orientation Not on file documented as of this encounter Plan of Treatment Not on file documented as of this encounter Procedures Procedure Name Priority Date/Time Associated Diagnosis Comments PROCEDURE - RESULT 09/07/2017 12 :00 AM CDT documented in this encounter Results * PROCEDURE - RESULT (09/07/2017 12:00 AM CDT) Narrative 09/07/2017 12:00 AM CDT Ordered by an unspecified provider. Historical Provider Final Res ult documented in this encounter Visit Diagnoses Not on filedocumented in this encounter Care Teams Machine Pecan Picker Relationship Specialty Start Date End Date Rica Uriarte MD [address] [address] PCP - General 08/05/16 Dereck Meza MD [address] [facility] [address] [address] Field Marketing Coordinator Cardiovascular Disease 07/18/18 Danielle Gomez MD [facility] [address] Consulting Physician Pain Management 06/25/22 Fly Onofre MD [address] [facility] [address] Consulting Physician Pulmonary Disease 08/12/23 documented as of this encounter
--- OUTSIDE RECORDS SUMMARY | 2024-08-14 15:35 | XMS_ITS | Encounter Summary ---
Author Organization [facility] Facility Care Team Providers Care Vascular Surgeon Name Role Phone Rica Uriarte MD Primary Care Provider [phone] Dereck Meza MD Unavailable [phone] Danielle Gomez MD Unavailable Fly Onofre MD Unavailable [phone] Encounter Details Date Type Department Care Team (Latest Contact Info) Description 06/17/2017 Orders Only [facility] ProviderPower MD [address] [place] [address] Social History Tobacco Use Types Packs/Day Years Used Date Smoking Tobacco: Never Comments Unknown Sex and Gender Information Value Date Recorded Sex Assigned at Not on file Legal Sex Female 10:04 PM 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 Historical Provider Final Res ult documented in this encounter Visit Diagnoses Not on filedocumented in this encounter Care Teams Vascular Surgeon Relationship Specialty Start Date End Date Rica Uriarte MD [address] [address] PCP - General 08/05/16 Dereck Meza MD [address] [facility] [address] [address] Labor Delivery Rn Cardiovascular Disease 07/18/18 Danielle Gomez MD [facility] [address] Consulting Physician Pain Management 06/25/22 Fly Onofre MD [address] [facility] [address] Consulting Physician Pulmonary Disease 08/12/23 documented as of this encounter
--- OUTSIDE RECORDS SUMMARY | 2024-08-14 15:35 | XMS_ITS | Encounter Summary ---
Author Organization [facility] Address [address] [place] [address] Care Team Providers Care Lab Aide Name Role Phone Rica Uriarte MD Primary Care Provider [phone] Encounter Details Date Type Department Care Team (Late st Contact Info) Description 02/28/2021 Lab Requisition [facility] DermPath Lab [address] [facility] [place] [id number] Rubio Holt MD [address] [facility] [place] [place] [address] Social History Tobacco Use Types Packs/Day Years Used Date Smoking Tobacco: Never Smokeless Tobacco: Never Alcohol Use Standard Drinks/Week Comments Yes 0 (1 standard drink = 0.6 oz pur e alcohol) Comments Unknown Sex and Gender Information Value Date Recorded Sex Assigned at Not on file Legal Sex Female 5:35 PM 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 TRUCK DRIVER Gender Identity Not on file Sexual Orientation Not on file documented as of this encounter Plan of Treatment Not on file documented as of this encounter Procedures Procedure Name Priority Date/Time Associated Diagnosis Comments DERMATOPATHOLOGY Routine 02/26/2021 12:0 0 AM SEPTIC PUMP TRUCK DRIVER documented in this encounter Results * DERMATOPATHOLOGY (02/26/2021 12:00 AM SEPTIC PUMP TRUCK DRIVER) Case Report Dermatopathology Report Case: [id number] Authorizing Provider: Rubio Holt MD Collected: 02/26/2021 12:00 AM Ordering Location: [facility] Derm[facility] Lab Received: 02/28/2021 07:54 AM Pathologist: Debra Vaughan MD Specimen: Skin, left yarsanism 4:03 PM [facility] DERMATOPATHOLOGY LABORATORY Final Diagnosis Specimen A. 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 SCCA in situ. Check margins. Path# [id number] 4:03 PM [facility] DERMATOPATHOLOGY LABORATORY Gross Description Specimen A: Received is one formalin filled container labeled with the patient's name and designated left yarsanism. The specimen consists of a non-oriented ellipse of skin measuring [id number]. The margin is inked green. The 12 o'clock and 6 o'clock tips are submitted in cassette 1. The remainder of the ellipse is serially sectioned and submitted in cassette 2-3. Jar 0. 4:03 PM [facility] DERMATOPATHOLOGY LABORATORY Microscopic Description Specimen A. SKIN, left yarsanism: The epidermis shows parakeratosis, full thickness disorderly maturation of keratinocytes, mitoses at different levels, and dyskeratotic cells. This lesion is not present at the margin of the specimen. There are fibroblasts and collagen bundles oriented parallel to the skin surface with elongated blood vessels, some of which are oriented perpendicular to the skin surface. 4:03 PM [facility] DERMATOPATHOLOGY LABORATORY Disclaimer An external and internal positive and negative controls are appropriate for the histochemical, immunohistochemical and immunofluorescence stain(s) in this case (if any), except where stated explicitly. The performance characteristics of the stain(s) cited in this report were developed and its performance characteristic determined by the Dermatopathology Laboratory at [facility], directed by Dr. Anum Tovar. These tests need not be, and therefore are not, approved by the [place] Food and Drug Administration. The tests are used for clinical purposes. Billing Codes Specimen Charges Stain Charges 25848 1 4:03 PM [facility] DERMATOPATHOLOGY LABORATORY Embedded Images 4:03 PM [facility] DERMATOPATHOLOGY LABORATORY Pathology/Cytolog y TISSUE SPECIMEN FROM SKIN / Unknown 02/26/2021 02/28/2021 7:54 AM SEPTIC PUMP TRUCK DRIVER us Rubio Holt MD LAB - PATHOLOGY/CYTOLOGY ORDER PHAM Final Result DERMATOPATHOLOGY LABORATORY [facility] - Department of Dermatology [facility] [address] [place] [address], [address] [phone] documented in this encounter Visit Diagnoses Not on filedocumented in this encounter Care Teams Lab Aide Relationship Specialty Start Date End Date Rica Uriarte MD [address] [place] [address] PCP - General 09/10/08 documented as of this encounter
--- OUTSIDE RECORDS SUMMARY | 2024-08-14 15:35 | XMS_ITS | Clinical Summary ---
Author Organization [facility] Address [address] [place] [address] Care Team Providers Care Primary Grade Teacher Name Role Phone Rica Uriarte MD Primary Care Provider [phone] Source Comments [facility] is amultiple site organization consisting of ambulatory clinics and hospital sitesin [place], [place], [place] and [place]. This disclosure is being madepursuant to the Care Everywhere program and may not contain all information available regarding this patient. Last updated 17.[facility] Allergies Active Allergy Reactions Criticality Noted Date Comments Cephalexin Skin Reactions Medium 10/16/2013 Codeine Nausea and/or Vomiting,Rash 09/10/19 11 Sulfa Drugs Rash 09/09/2010 Medications * Be aware that medications may not be up to date on this document. Alwaysverify current medications with the patient. fluorouracil (EFUDEX) 5 % cream 40 g 0 12/19/2015 Active Active Problems Problem Noted Date Diagnosed Date Actinic keratosis 10/23/2013 Essential (primary) hypertension 09/09/2010 Tourette's disorder 09/09/2010 Disorder of kidney and ureter 09/09/2010 Uncomplicated asthma 09/09/2010 Family History Medical History Relation Name Comments Cancer - Skin, Non Melanoma Brother Cancer - Skin, Melanoma Father Cancer - Skin, Non Melanoma Father Status: Alive Cancer - Skin, Melanoma Maternal Grandmother Cancer - Skin, Melanoma Mother Cancer - Skin, Non Melanoma Mother Status: Alive Allergy (Severe) Neg Hx CVA Neg Hx Cancer Neg Hx Eczema Neg Hx Hemophilia Neg Hx Psoriasis Neg Hx Rashes/Skin Problems Neg Hx Relation Name Status Comments Brother Father Maternal Grandmother Mother Social History Tobacco Use Types Packs/Day Years Used Date Smoking Tobacco: Never Smokeless Tobacco: Never Alcohol Use Standard Drinks/Week Comments Yes 0 (1 standard drink = 0.6 oz pur e alcohol) Comments Unknown Sex and Gender Information Value Date Recorded Sex Assigned at Not on file Legal Sex Female 5:35 PM [employer] OPER[employer] Gender Identity Not on file Sexual Orientation Not on file Plan of Treatment Health Maintenance Due Date Last Done Comments BONE DENSITY TESTING 1956 COLOGUARD (AGES 45-75) - COL ON CA SCREENING 1956 COLON MONITORING 1956 COLONOSCOPY - COLON CA SCREENING 1956 CT COLONOGRAPHY - COLON CA SCREENING 1956 Colorectal Cancer Screening 1956 FIT - COLON CA SCREENING 1956 FLEX SIG - COLON CA SCREENING 1956 LIPID TESTING 1956 MAMMOGRAM 1956 HEPATITIS C SCREENING 12/11/1974 DTAP/TDAP/TD VACCINES (1 - Tdap) 12/16/1975 PNEUMOCOCCAL VACCINE 50+ (1 of 1 - PCV) 2006 ZOSTER VACCINE (1 of 2) 2006 COVID-19 VACCINE ( - 2023-2 5 season) 2023 DEPRESSION SCREENING 04/12/2024 INFLUENZA VACCINE (Season Ended) 2024 Respiratory Syncytial Virus (RSV) Vaccine Pt: or over 60 yrs (1 - 1-dose 75+ series) 12/16/2031 HEPATITIS B VACCINE Aged Out No longe r eligible based on patient's age to complete this topic HIB VACCINE Aged Out No longer eligi ble based on patient's age to complete this topic HPV VACCINE Aged Out No longer eligi ble based on patient's age to complete this topic MENINGOCOCCAL (Group B) VACC INE SHARED DECISION-MAKING Aged Out No longer eligibl e based on patient's age to complete this topic MENINGOCOCCAL GROUPS A/C/Y/W VACCINE Aged Out No longer eligible b ased on patient's age to complete this topic Insurance [place] [id number] [place] [address] Care Teams Primary Grade Teacher Relationship Specialty Start Date End Date Rica Uriarte MD [address] [place], [place] [id number] PCP - General 09/10/08
--- OUTSIDE RECORDS SUMMARY | 2024-08-14 15:35 | XMS_ITS | Clinical Summary ---
Author Organization [address] Address [facility] [place] [address] Care Team Providers Care Brake Operator Sheet Metal Name Role Phone Rica Uriarte MD Primary Care Provider [phone] Dereck Meza MD Unavailable [phone] Danielle Gomez MD Unavailable Fly Onofre MD Unavailable [phone] Allergies Active Allergy Reactions Criticality Noted Date [...] tablet/capsul e by mouth daily Active multivitamin-i alyl-folic acid 18-400 mg-mcg tablet Take 1 tablet [...] 1 PUFF DAILY 90 each 08/09/19 25 07/28/2 025 Active azelastine (ASTELIN) 137 mcg (0.1 [...] reassessment. Assessment & Plan (06/06/2020 4:00 PM FOREPART LASTER): Patient's history of essential tremor and gets [...] 2021. Assessment & Plan (06/06/2020 3:59 PM FOREPART LASTER): Patient reports a reduction in motor tics [...] noticing under stressful situations an increase in [id number] head turning. She is interested in a [...] Date Resolved Date Restrictive lung disease 09/06/201806/2019 Encounters Date Type Department Care Team Description 08/07/2024 1:00 PM CDT Office Visit [facility] Otolaryngology [address] [place] [phone] Rosario Clinton NP Non-seasonal allergic rhinitis due to pollen (Primary Dx); Nasal septal perforation 07/28/2024 Telephone [facility] Cardiology [address] [place] [address] [phone] Al Kaplan MD Test Results 07/17/2024 3:30 PM CDT Therapy [facility] OP Physical Therapy [address] [place] [phone] Spinal stenosis, unspecified spinal region 07/11/2024 12:00 PM CDT Office Visit [facility] Medical [facility] Neurology [address] [place] [phone] Hardy Keane Si, MD Essential tremor (Primary Dx); Tourettes syndrome; Migraine without aura and without status migrainosus, not intractable 07/10/2024 9:42 AM CDT - 07/10/2024 11:59 PM CDT Hospital Encounter [facility] Nuclear Medicine [address] [place] [address] Discharge Disposition: Discharge to home or self care 07/10/2024 9:41 AM CDT - 07/10/2024 11:59 PM CDT Hospital Encounter [facility] Nuclear Medicine [address] [place] [address] Discharge Disposition: Discharge to home or self care 07/10/2024 9:41 AM CDT - 07/10/2024 11:59 PM CDT Hospital Encounter [facility] Nuclear Medicine [address] [place] [address] Discharge Disposition: Discharge to home or self care 07/10/2024 9:41 AM CDT - 07/10/2024 11:59 PM CDT Hospital Encounter [facility] Nuclear Medicine [address] [place] [address] Aortic valve sclerosis; Benign essential hypertension; Paroxysmal atrial fibrillation (HCC); Diastolic dysfunction; Incomplete right bundle branch block; Pure hypercholesterolemia ; Precordial chest pain; Obstructive sleep apnea syndrome; Morbid obesity (HCC) Discharge Disposition: Discharge to home or self care 07/07/2024 1:10 PM CDT - 07/07/2024 11:59 PM CDT Hospital Encounter [facility] OP Cardiac Testing [address] [place] [phone] Aortic valve sclerosis; Benign essential hypertension; Paroxysmal atrial fibrillation (HCC); Diastolic dysfunction; Incomplete right bundle branch block; Pure hypercholesterolemia ; Precordial chest pain; Obstructive sleep apnea syndrome; Morbid obesity (HCC) Discharge Disposition: Discharge to home or self care 07/04/2024 11:32 AM CDT - 07/04/2024 11:59 PM CDT Hospital Encounter [facility] Respiratory [address] [place] [address] Moderate persistent asthma without complication; Non-seasonal allergic rhinitis due to pollen; Periodic limb movement disorder; Obstructive sleep apnea syndrome; History of bariatric surgery; Nonsmoker; Psychophysiological insomnia Discharge Disposition: Discharge to home or self care 06/22/2024 11:30 AM CDT Office Visit [facility] Cardiology [address] [place] [phone] Al Kaplan MD Aortic valve sclerosis (Primary Dx); Benign essential hypertension; Paroxysmal atrial fibrillation (HCC); Diastolic dysfunction; Incomplete right bundle branch block; Pure hypercholesterolemia ; Precordial chest pain; Obstructive sleep apnea syndrome; Morbid obesity (HCC) 06/12/2024 10:20 AM FOREPART LASTER Lab [facility] Lab [address] [place] [address] Paroxysmal atrial fibrillation (HCC); Diastolic dysfunction; Aortic valve sclerosis; Incomplete right bundle branch block; Benign essential hypertension; Pure hypercholesterolemia ; Obstructive sleep apnea syndrome; Morbid obesity (HCC) 06/02/2024 10:30 AM FOREPART LASTER Office Visit [facility] Orthopedics and Sports Medicine [facility] [address] [place] [phone] Kulwinder De La Torre PA Impingement syndrome of right shoulder (Primary Dx); Impingement syndrome of left shoulder from Last 3 Months Immunizations Immunization Administration Dates Next Due Influenza, Quadrivalent, Hig h Dose, Preservative Free, Intrr 02/02/2023 Influenza, Quadrivalent, Spl it, Intramuscular 01/07/2020,03/06/2019,03/08/2018,02/08,01/16/2016,01/17/2015 Influenza, Quadrivalent, Spl it, Preservative Free, Intramuscular 01/07/2020 Influenza, Trivalent, IM (MDV) 01/18/2014,2012 Influenza, Trivalent, Split, Preservative Free, Intradermal 02/03/2012 Eutechnyx SARS-CoV-2 Monovalent Vaccination (12+ Yrs) PURPLE 01/22/2021,06/18/2020,05/28/2020 Pneumococcal Conjugate PCV 13 01/17/2015 Pneumococcal Polysaccharide PPV23 01/22/2004 Td, adsorbed 01/23/2005 Tdap 01/17/2015 ZOSTER LIVE 02/08/2017 Surgical History Surgery Date Site/Laterality Comments LAPAROSCOPIC GASTRIC BANDING 04/12/2012 - 04/11/2013 Laparosc Gastric Restrictive Proc By Adjustable Gastric Band - (Added by TW Conv) COLON SURGERY 04/12/1985 - 04/11/1986 N/A foot of colon removed BREAST SURGERY reducation HYSTERECTOMY 04/12/1994 - 04/11/1995 N/A HERNIA REPAIR APPENDECTOMY TONSILLECTOMY SEPTOPLASTY 04/12/2017 - 04/11/2018 KNEE ARTHROSCOPY 04/12/2014 - 04/11/2015 Right TOTAL KNEE ARTHROPLASTY 09/13/2018 Right September of 2023 GALLBLADDER SURGERY SQUAMOUS CELL CARCINOMA EXCISION 08/11/2023 - 09/10/2023 Left L upper back LUMBAR PUNCTURE WO INJECTION, DIAGNOSTIC 12/13/2020 N/A JOINT REPLACEMENT 09/16/2023 Left total knee Medical History Medical History Date Comments HTN (hypertension) Musculoskeletal problem Colon cancer (HCC) removed 1 jonah t of intestine - no chemo or radiation post op Tourette syndrome 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) 08/22/2018 Hay fever 08/22/2018 Tremor Anterolisthesis 09/30/2020 Grade 1 L4 on L5 DDD (degenerative disc disease), lumbar Lumbar spondylosis Nasal lesion Asthma Allergic rhinitis Depression GERD (gastroesophageal reflux disease) Ear problems Headache Nosebleed Arrhythmia 02/2023 atrial fib Osteoarthritis Family History Medical History Relation Name Comments No Known Problems Brother 1 COPD Father Cancer Father Heart disease Father Hypertension Father Family history of hypertension - (Added by TW Conv) Cancer Father's Sister COPD Mother Heart disease Mother Hypertension Mother Family history of hypertension - (Added by TW Conv) Relation Name Status Comments Brother 1 Alive Family HX of Ar thritis Cancer Heart Disease Seizure Gout DM Kidney Problems Brother 2 Alive Father Alive HTN Father's Sister Mother Alive HTN Social History Tobacco Use Types Packs/Day Years Used Date Smoking Tobacco: Never Smokeless Tobacco: Never Tobacco Cessation:Counseling Given: Not Answered Alcohol Use Standard Drinks/Week Comments Not Currently 0 (1 standard drink = 0.6 oz pur e alcohol) [employer] Util[employer] Answer Date Recorded In the past 12 months has [employer] electric, gas, oil, or water [employer] threatened to shut off services in your [...] 09/17/2023 How often do you attend chur or mormon services? Never 09/17/2023 Do you belong to any clubs o r organizations such as hindu groups, unions, fraternal or athletic groups, or [...] any time in the past 12 m [facility], were you homeless or living in a [place] health care facility (including now)? No 09/17/2023 Personal Safety Answer Date Recorded Have you ever been in or are you currently in a harmful physical or emotional relationship or is someone making you feel afraid or unsafe? Denies 09/16/2023 Comments No Sex and Gender Information Value Date Recorded Sex Assigned at Not on file Legal Sex Female 10:04 PM FOREPART LASTER Gender Identity Not on file Sexual Orientation Not on file Obstetrics History Last Filed Vital Signs Vital Sign Reading Time Taken Comments Blood Pressure 116/78 07/11/2024 11:50 AM CDT Pulse 54 07/11/2024 11:50 AM CDT Temperature 36.4 C (97.5 F) 03/02/2024 1:15 PM FOREPART LASTER Respiratory Rate 18 08/07/2024 1:09 PM CDT Oxygen Saturation 95% 07/10/2024 10:54 AM CDT Inhaled Oxygen Concentration - - Weight 91.6 kg (202 lb) 08/07/2024 1:09 PM CDT Height 157.5 cm (5' 2 ) 08/07/2024 1:09 PM CDT Body Mass Index 36.95 08/07/2024 1:09 PM CDT Plan of Treatment Health Maintenance Due Date Last Done Comments Colon Cancer Screening-Colonoscopy 1955 Depression Screening 1955 Osteoporosis Screening-Bone Density Scan 1956 Hepatitis B Screening 1974 Pneumococcal vaccine 65+ (3 of 3 - PCV20 or PCV21) 01/18/2020 01/17/2015, 01/22/2004 Well Visit 65+ 2021 Breast Cancer Screening-Mammogram 06/19/2023 06/18/2022, 04/17/2021, 01/16/2020, Additional history exists Covid-19 Vaccine (2023-2 5 season) 2023 01/22/2021, 06/18/2020, 05/28/2020 Fall Risk Assessment 09/16/2024 09/17/2023 DTaP/Tdap/Td Vaccine (2 - Td or Tdap) 01/17/2025 01/17/2015, 01/23/2005 Hepatitis C Screening Completed 04/26/2013 Zoster Vaccine Completed 03/30/2022, 01/10, 02/08/2019, Additional history exists Influenza Vaccine Completed 02/02/2024, , 04/01/2021, Additional history exists Medical Devices Implanted Type Area Public Records Researcher Device Identifier Shelf Expiration Date Model / Serial / Lot Titanium Right Knee Replacement Right: Knee Left Breast Markers Left: Breast [employer] Simplex P Radiopaque Full Dose Cement Bone Sterile 6191-1-010 - [id number] Implanted:Qty: 1 on 09/16/2023 by Mitchel Becker MD at [facility] Left: Knee [employer] 08/09/2025 6191-1-010 / / [id number] [employer] Elo Ii Left Knee 3 Baseplate Tibial Titanium Nonporous [id number] - [id number] Implanted:Qty: 1 on 09/16/2023 by Mitchel Becker MD at [facility] Left: Knee [employer] [id number] 03/19/2033 [id number] / / [id number] [employer] Elo Ii Cruciate Retaining Left Knee 4 Stem Femoral Nonporous [id number] - [id number] Implanted:Qty: 1 on 09/16/2023 by Mitchel Becker MD at [facility] Left: Knee [employer] [id number] 01/21/2032 [id number] / / [id number] [employer] Legion 10mm Cruciate Retaining High Flexion Knee 3-4 Insert [id number] - [id number] Implanted:Qty: 1 on 09/16/2023 by Mitchel Becker MD at [facility] Left: Knee [employer] [id number] 03/22/2033 [id number] / / [id number] [employer] Elo Ii 13mm 29mm Biconvex Knee Component Patellar Uhmwpe [id number] - [id number] Implanted:Qty: 1 on 09/16/2023 by Mitchel Becker MD at [facility] Left: Knee [employer] [id number] 06/04/2033 [id number] / / [id number] Procedures Procedure Name Priority Date/Time Associated Diagnosis [...] Pure hypercholesterolemia EGFR Routine 06/12/2024 10:26 AM FOREPART LASTER Paroxysmal atrial fibrillation (HCC) Diastolic dysfunction Aortic valve sclerosis Incomplete right bundle branch block Benign essential hypertension Pure hypercholesterolemia Obstructive sleep apnea syndrome Morbid obesity (HCC) DIFFERENTIAL AUTO Routine 06/12/2024 10:26 AM FOREPART LASTER Paroxysmal atrial fibrillation (HCC) Diastolic dysfunction Aortic valve sclerosis Incomplete right bundle branch block Benign essential hypertension Pure hypercholesterolemia Obstructive sleep apnea syndrome Morbid obesity (HCC) CBC WITH AUTO DIFFERENTIAL Routine 06/12/2024 10:26 AM FOREPART LASTER Paroxysmal atrial fibrillation (HCC) Diastolic dysfunction Aortic valve sclerosis Incomplete right bundle branch block Benign essential hypertension Pure hypercholesterolemia Obstructive sleep apnea syndrome Morbid obesity (HCC) COMPREHENSIVE METABOLIC PANEL Routine 06/12/2024 10:26 AM FOREPART LASTER Paroxysmal atrial fibrillation (HCC) Diastolic dysfunction Aortic valve sclerosis Incomplete right bundle branch block Benign essential hypertension Pure hypercholesterolemia Obstructive sleep apnea syndrome Morbid obesity (HCC) LIPID PANEL Routine 06/12/2024 10:26 AM FOREPART LASTER Paroxysmal atrial fibrillation (HCC) Diastolic dysfunction Aortic valve sclerosis Incomplete right bundle branch block Benign essential hypertension Pure hypercholesterolemia Obstructive sleep apnea syndrome Morbid obesity (HCC) MAGNESIUM Routine 06/12/2024 10:26 AM FOREPART LASTER Paroxysmal atrial fibrillation (HCC) Diastolic dysfunction Aortic valve sclerosis Incomplete right bundle branch block Benign essential hypertension Pure hypercholesterolemia Obstructive sleep apnea syndrome Morbid obesity (HCC) THYROID FUNCTION CASCADE Routine 06/12/2024 10:26 AM FOREPART LASTER Paroxysmal atrial fibrillation (HCC) Diastolic dysfunction Aortic valve sclerosis Incomplete right bundle branch block Benign essential hypertension Pure hypercholesterolemia Obstructive sleep apnea syndrome Morbid obesity (HCC) WI ARTHROCENTESIS ASPIR&/INJ MAJOR JT/BURSA W/O US Routine 06/02/2024 10:30 AM FOREPART LASTER Impingement syndrome of right shoulder Impingement syndrome of left shoulder HEPATITIS PANEL, ACUTE Routine 04/26/2013 3:59 PM FOREPART LASTER from Last 3 Months or Most Recently Relevant to Health Maintenance Results * NM MPI SPECT (Rest and/or Stress) Multiple Studies (07/10/2024 12:49 PM CDT) Anatomical Region Laterality Modality Body N/A Nuclear Medicine Impressions 07/11/2024 7:48 PM CDT 1. No scintigraphic evidence of myocardial ischemia. 2. Normal left ventricular size and systolic function. I personally supervised and interpreted the stress test. Copy to Rcia Uriarte MD John Lehman, MD 07/11/2024 Narrative 07/11/2024 7:48 PM CDT Patient Id: Lis Choudhury is a 68 y.o. female. MR#: [id number] Study date: 07/10/2024 EXAM DESCRIPTION: NM MPI [...] Choudhury is a 68 y.o. female. MR#: [id number] Study date: 07/10/2024 EXAM DESCRIPTION: STRESS LEXISCAN [...] Choudhury is a 68 y.o. female. MR#: [id number] Study date: 07/10/2024 EXAM DESCRIPTION: STRESS LEXISCAN [...] PM Ht(Inch): 62 Wt(Lb): 208 BSA: 2.03 Focusing Machine Operator: Corazon Adkins RDCS Order Provider: AL KAPLAN Heart Rate: 54 BMI: 38.04 BP: 128 / 72 Ref Provider: AL KAPLAN PROCEDURES: Echocardiographic Report: ([id number]) Transthoracic complete echo, 2D, spectral and tissue [...] PM Ht(Inch): 62 Wt(Lb): 208 BSA: 2.03 Focusing Machine Operator: Corazon Adkins RDCS Order Provider: AL KAPLAN Heart Rate: 54 BMI: 38.04 BP: 128 / 72 Ref Provider: AL KAPLAN PROCEDURES: Echocardiographic Report: ([id number]) Transthoracic complete echo, 2D,spectral and tissue Doppler, [...] cm/m2 [ 1.00 - 2.00 ] MV XXL140.00 ms MVA PHT 1.67 cm2 MV Decel [...] Al Kaplan MD 07/08/2024 12:36:23 AM CDT us Al Kaplan MD CV ECHO PROCEDURES Final R esult * Pulmonary Function Test - (07/04/2024 12:49 PM CDT) FVC PRE 2.55 L 07/04/2024 12:44 PM CDT [facility] FEV1 PRE 2.18 L 07/04/2024 12:44 PM CDT [facility] [id number] 85.43 % 07/04/2024 12:44 PM CDT [facility] ZJU56-76% PRE 2.98 L/s 07/04/2024 12:44 PM CDT [facility] PEF PRE 4.37 L/s 07/04/2024 12:44 PM CDT [facility] DLCOc SB 12.00 ml/(min*mm Hg) 07/04/2024 12:44 PM CDT [facility] DLCO/VA PRE 3.79 ml/(min*mm Hg*L) 07/04/2024 12:44 PM CDT [facility] VA 3.17 L 07/04/2024 12:44 PM CDT [facility] TLC PRE 5.07 L 07/04/2024 12:44 PM CDT [facility] VC PRE 2.59 L 07/04/2024 12:44 PM CDT [facility] IC PRE 2.15 L 07/04/2024 12:44 PM CDT [facility] FRC PL PRE 2.93 L 07/04/2024 12:44 PM T [facility] ERV PRE 0.45 L 07/04/2024 12:44 PM T [facility] RV PRE 2.48 L 07/04/2024 12:44 PM T [facility] RAW PRE 2.07 cmH2O*s/L 07/04/2024 12:44 PM T [facility] VTG 3.09 L 07/04/2024 12:44 PM T [facility] Anatomical Region Laterality Modality PFT 07/04/2024 11:5 1 AM CDT Impressions 07/05/2024 3:31 PM CDT 1. Spirometry is normal. 2. Lung volumes are normal. 3. Mild diffusion impairment. 4. 6 minute walk test performed. Patient walk 920 ft. Patient maintain oxygen saturation 92-98%. Patient did not require supplemental oxygen with ambulation. Clinical correlation is advised. Electronically signed by Josemanuel Centeno DO Pulmonary & Critical Care Narrative 07/05/2024 3:31 PM CDT PULMONARY FUNCTION TESTS Lis Sprague Kei 68 y.o. 07/05/2024 INTERPRETATION Please see technologist's [...] and carboxyhemoglobin DLCO is 59 % predicted Fly Onofre MD PFT ORDERABLES Final Resul t * ECG 12 lead (06/22/2024 11:29 AM CDT) us Al Kaplan MD ECG ORDERABLES Final Resu lt * eGFR (06/12/2024 10:26 AM FOREPART LASTER) eGFR >90 >=60 mL/min/1. 73 m2 Comment: [...] reviewed 2021. Blood 06/12/2024 10:2 6 AM FOREPART LASTER 06/12/2024 11:06 AM FOREPART LASTER Al Kaplan MD LAB BLOOD ORDERABLES Final Result [facility] [address] [facility] [place] [address] * Differential, auto (06/12/2024 10:26 AM FOREPART LASTER) Neutrophil abs 6.0 1.5 - 6.5 K/cumm Imm gran abs 0.1 0.0 - 0.1 K/cumm [facility] Lymphocyte abs 2.9 0.8 - 3.3 K/cumm [facility] Monocyte abs 0.7 0.2 - 0.8 K/cumm [facility] Eosinophil abs 0.1 0.0 - 0.5 K/cumm [facility] Basophil abs 0.0 0.0 - 0.1 K/cumm [facility] Neutrophil pct 60.9 % [facility] Comment: Interpretive Data Percent cell count reference ranges are not reported, since discordance with absolute values may lead to misinterpretation of CBC data. Current Interpretive Data was last revised on 2017. Imm gran pct 1.0 % [facility] Comment: Interpretive Data Percent cell count reference ranges are not reported, since discordance with absolute values may lead to misinterpretation of CBC data. Current Interpretive Data was last revised on 2017. Lymphocyte pct 29.6 % [facility] Comment: Interpretive Data Percent cell count reference ranges are not reported, since discordance with absolute values may lead to misinterpretation of CBC data. Current Interpretive Data was last revised on 2017. Monocyte pct 7.0 % [facility] Comment: Interpretive Data Percent cell count reference ranges are not reported, since discordance with absolute values may lead to misinterpretation of CBC data. Current Interpretive Data was last revised on 2017. Eosinophil pct 1.1 % [facility] Comment: Interpretive Data Percent cell count reference ranges are not reported, since discordance with absolute values may lead to misinterpretation of CBC data. Current Interpretive Data was last revised on 2017. Basophil pct 0.4 % [facility] Comment: Interpretive Data Percent cell count reference ranges are not reported, since discordance with absolute values may lead to misinterpretation of CBC data. Current Interpretive Data was last revised on 2017. Blood 06/12/2024 10:2 6 AM FOREPART LASTER 06/12/2024 11:06 AM FOREPART LASTER Al Kaplan MD LAB BLOOD ORDERABLES Final Result Performing Organization Address [facility] Co de Phone Number [address] [address] * Thyroid Function Ideal (06/12/2024 10:26 AM FOREPART LASTER) [facility] TSH 1.73 0.30 - 4.20 mcIUnit/mL Blood 06/12/2024 10:2 6 AM FOREPART LASTER 06/12/2024 11:06 AM FOREPART LASTER Al Kaplan MD LAB BLOOD ORDERABLES Final Result Performing Organization Address [facility] de Phone Number [address] [address] * (ABNORMAL) CBC with auto differential (06/12/2024 10:26 AM FOREPART LASTER) [facility] WBC 9.9 3.8 - 9.9 K/cumm Hgb 12.4 11.9 - 15.5 g/dL [facility] Hct 38.5 35.6 - 45.5 % [facility] Plt 275 150 - 400 K/cumm [facility] MPV 9.7 9.1 - 12.3 fL [facility] RBC 4.44 3.90 - 5.20 M/cumm [facility] MCV 86.7 81.3 - 96.4 fL [facility] MCH 27.9 27.1 - 33.3 pg [facility] MCHC 32.2(L) 32.3 - 35.7 g/dL [facility] RDW CV 14.8 11.1 - 14.9 % [facility] RDW SD 47.0 35.7 - 48.1 fL [facility] NRBC abs 0.00 0.00 - 0.01 K/cumm [facility] Blood 06/12/2024 10:2 6 AM FOREPART LASTER 06/12/2024 11:06 AM FOREPART LASTER Al Kaplan MD LAB BLOOD ORDERABLES Final Result Performing Organization Address [facility] Co de Phone Number [address] [address] * Magnesium (06/12/2024 10:26 AM FOREPART LASTER) Magnesium 1.8 1.4 - 2.5 mg/dL Blood 06/12/2024 10:2 6 AM FOREPART LASTER 06/12/2024 11:06 AM FOREPART LASTER Al Kaplan MD LAB BLOOD ORDERABLES Final Result Performing Organization Address [facility] de Phone Number [address] [address] * Lipid panel (06/12/2024 10:26 AM FOREPART LASTER) Cholesterol 155 30 - 199 mg/dL Comment: [...] on 2017. Triglycerides 126 <=149 mg/dL [facility] Comment: Interpretive Data Ages [...] on 2017. HDL 54 >=40 mg/dL [facility] Comment: Interpretive Data Ages < [...] 2017. LDL, calculated 79 <=129 mg/dL [facility] Comment: Interpretive Data Ages < [...] NCEP Expert Panel. Circulation 2004;110:227 3. Ghulam Guido al. RONEN Cardiol. 2020 August 10;5(5):540-548. doi: 10.1001/[email or web address].2020.0013 Current Interpretive Data was last revised on 2023. Non-HDL Cholesterol 101 mg/dL [facility] Comment: Interpretive Data Ages < [...] last revised on 2017. Chol/HDL ratio 3 [facility] Blood 06/12/2024 10:2 6 AM FOREPART LASTER 06/12/2024 11:06 AM FOREPART LASTER Al Kaplan MD LAB BLOOD ORDERABLES Final Result [facility] [address] [facility] Department of Laboratories [place], [place] [id number] * Comprehensive metabolic panel (06/12/2024 10:26 AM FOREPART LASTER) Sodium 137 135 - 145 mmol/L Potassium, pl 4.1 3.3 - 4.9 mmol/L [facility] Chloride 98 97 - 110 mmol/L [facility] CO2 26 22 - 32 mmol/L [facility] Anion gap 13 2 - 15 mmol/L [facility] BUN 13 6 - 25 mg/dL [facility] Creatinine 0.69 0.60 - 1.10 mg/dL [facility] Glucose 101 70 - 199 mg/dL [facility] Comment: Interpretive Data Fasting glucose >/= [...] 2022. Calcium 9.9 8.5 - 10.3 mg/dL [facility] Bilirubin, total 0.3 0.1 - 1.2 mg/dL [facility] Protein, pl 7.4 6.5 - 8.5 g/dL [facility] Albumin 4.3 3.5 - 5.0 g/dL [facility] Alk phos 97 40 - 130 Units/L [facility] ALT 13 7 - 45 Units/L [facility] AST 16 10 - 45 Units/L [facility] Blood 06/12/2024 10:2 6 AM FOREPART LASTER 06/12/2024 11:06 AM FOREPART LASTER Al Kaplan MD LAB BLOOD ORDERABLES Final Result KIRSTIE GUILLEN [address] [facility] [place] [address] * [place] ARTHROCENTESIS ASPIR&/INJ MAJOR JT/BURSA W/O US (06/02/2024 10:30 AM FOREPART LASTER) Narrative Kulwinder De La Torre PA - 06/02/2024 10:30 AM FOREPART LASTER Kulwinder De La Torre PA 06/02/2024 10:54 [...] the procedure well with no immediate complications Result [facility] Kulwinder JOINER IN CLINIC/BEDSIDE ORDERAB LES Final Result * Hepatitis panel, acute (04/26/2013 3:59 PM FOREPART LASTER) HepBsAg NONREACT NONREACTIVE Comment: Siemens Refrek IncaurXP using FRANKLIN (chemiluminescent immunoassay) technology. NONREACTIVE: IgM antibodies to Hepatitis B Surface antigen not detected. REACTIVE: IgM antibodies to Hepatitis B Surface antigen detected. Reactive results will be confirmed by neutralization testing. HBsAb (immune status) NONREACT NONREACTIVE Comment: Siemens CentaurXP using FRANKLIN (chemiluminescent immunoassay) technology. NONREACTIVE: IgM antibodies to Hepatitis B Surface antibody not detected. REACTIVE: IgM antibodies to Hepatitis B Surface antibody detected. Hep B core IgM NONREACT NONREACTIVE 4 5:41 PM FOREPART LASTER [facility] HISTORICAL RESULTS Comment: Siemens CentaurXP using FRANKLIN (chemiluminescent immunoassay) technology. NONREACTIVE: IgM antibodies to Hepatitis B Core antigen not detected. EQUIVOCAL: IgM antibodies to Hepatitis B Core antigen may or may not be present. Obtain a new specimen and retest. REACTIVE: IgM antibodies to Hepatitis B Core antigen detected. Hep A IgM NONREACT NONREACTIVE Comment: Siemens CentaurXP using FRANKLIN (chemiluminescent immunoassay) technology. NONREACTIVE: IgM antibodies to Hepatitis A not detected. This does not exclude possibility of exposure to Hepatitis A or early acute infection. EQUIVOCAL:IgM antibodies to Hepatitis A may or may not be present. Suggest recollection and retest. REACTIVE: Antibodies to Hepatitis A detected. Hep C Ab NONREACT NONREACTIVE Comment: Siemens CentaurXP using FRANKLIN (chemiluminescent immunoassay) [...] to Hepatitis C detected. 04/26/2013 3:59 PM FOREPART LASTER 04/26/2013 4:16 PM FOREPART LASTER us Cole Carrasco MD LAB MICROBIOLOGY - GENERAL O RDERABLES Final Result [facility] HISTORICAL RESULTS from Last 3 Months or Most Recently Relevant to Health [place] [address] [facility] [place] [address] [place] [address] Advance Directives For more information, please contact: [phone] Documents on File Type Date Recorded Patient Lay Ups Assembler Expl anation ADVANCE DIRECTIVE 09/02/2023 12:57 PM Madai r of Supervisor Engines Road-Medical ADVANCE DIRECTIVE 07/05/2014 12:00 AM MADAI R OF 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 FINANCIAL/MEDICAL * Full Code (Latest Code Status on File) Date Activated Date Inactivated Comments 09/16/2023 12:01 PM 09/17/2023 7:19 PM Care Teams Brake Operator Sheet Metal Relationship Specialty Start Date End Date Rica Uriarte MD [address] [address] PCP - General 08/05/16 Dereck Meza MD [address] [facility] [address] [address] Rn Nursery Cardiovascular Disease 07/18/18 Danielle Gomez MD [address] [facility], [address] [address] Consulting Physician Pain Management 06/25/22 Fly Onofre MD [address] [facility], [address] [address] Consulting Physician Pulmonary Disease 08/12/23
--- OUTSIDE RECORDS SUMMARY | 2024-08-14 15:35 | XMS_ITS | Encounter Summary ---
Author Organization [facility] Facility Care Team Providers Care Plasterer Rough Name Role Phone Rica Uriarte MD Primary Care Provider [phone] Dereck Meza MD Unavailable [phone] Danielle Gomez MD Unavailable Fly Onofre MD Unavailable [phone] Encounter Details Date Type Department Care Team (Latest Contact Info) Description 09/23/2017 Orders Only [facility]INCONV ProviderPower MD [address] [place] [id number] Social History Tobacco Use Types Packs/Day Years Used Date Smoking Tobacco: Never Comments Unknown Sex and Gender Information Value Date Recorded Sex Assigned at Not on file 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 Historical Provider Final Res ult documented in this encounter Visit Diagnoses Not on filedocumented in this encounter Care Teams Plasterer Rough Relationship Specialty Start Date End Date Rica Uriarte MD [address] [address] PCP - General 08/05/16 Dereck Meza MD [address] [facility] [address] [address] Tube Sorter Cardiovascular Disease 07/18/18 Danielle Gomez MD [address] [facility] [address] Consulting Physician Pain Management 06/25/22 Fly Onofre MD [address] [facility] [address] Consulting Physician Pulmonary Disease 08/12/23 documented as of this encounter
--- OUTSIDE RECORDS SUMMARY | 2024-08-14 15:35 | XMS_ITS | Encounter Summary ---
Author Organization [facility] Address [address] [facility] [address] [place] [address] Care Team Providers Care Gun Fertilizer Name Role Phone Rica Uriarte MD Primary Care Provider [phone] Dereck Meza MD Unavailable [phone] Danielle Gomez MD Unavailable Fly Onofre MD Unavailable [phone] Encounter Details Date Type Department Care Team (Late st Contact Info) Description 07/13/2013 Orders Only [facility] Health Information Management [address] [place] [address] Scanning, Provider Social History Tobacco Use Types Packs/Day Years Used Date Smoking Tobacco: Never Assessed Comments Unknown Sex and Gender Information Value Date Recorded Sex Assigned at Not on file 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 Gender Identity Not on file Sexual Orientation Not on file documented as of this encounter Plan of Treatment Not on file documented as of this encounter Procedures Procedure Name Priority Date/Time Associated Diagnosis Comments PULMONARY - RESULT SCAN 07/13/2013 documented in this encounter Results * PULMONARY - RESULT SCAN (07/13/2013) Anatomical Region Laterality Modality Other us Provider Scanning Final Result documented in this encounter Visit Diagnoses Not on filedocumented in this encounter Care Teams Gun Fertilizer Relationship Specialty Start Date End Date Rica Uriarte MD [address] [place] [address] PCP - General 08/05/16 Dereck Meza MD [address] [facility] [address] [address] Technology Development Intern Cardiovascular Disease 07/18/18 Danielle Gomez MD [address] [facility], [address] [address] Consulting Physician Pain Management 06/25/22 Fly Onofre MD [facility], [address] [address] Consulting Physician Pulmonary Disease 08/12/23 documented as of this encounter
--- OUTSIDE RECORDS SUMMARY | 2024-08-14 15:35 | XMS_ITS | Encounter Summary ---
Author Organization [facility] Address [address] [place] [address] Care Team Providers Care Manager Transmission Name Role Phone Rica Uriarte MD Primary Care Provider [phone] Dereck Meza MD Unavailable [phone] Danielle Gomez MD Unavailable Fly nOofre MD Unavailable [phone] Encounter Details Date Type Department Care Team (Late st Contact Info) Description 06/16/2013 Orders Only [facility] Information Management [address] [place] [address] Scanning, Provider Social History Tobacco Use Types Packs/Day Years Used Date Smoking Tobacco: Never Assessed Comments Unknown Sex and Gender Information Value Date Recorded Sex Assigned at Not on file 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 Gender Identity Not on file Sexual Orientation Not on file documented as of this encounter Plan of Treatment Not on file documented as of this encounter Procedures Procedure Name Priority Date/Time Associated Diagnosis Comments SLEEP LAB/STUDY - RESULT 06/16/2013 documented in this encounter Results * SLEEP LAB/STUDY - RESULT (06/16/2013) us Provider Scanning Final Result documented in this encounter Visit Diagnoses Not on filedocumented in this encounter Care Teams Manager Transmission Relationship Specialty Start Date End Date Rica Uriarte MD [address] [address] PCP - General 08/05/16 Dereck Meza MD [address] [facility] [address] [address] Woodworking Machine Operator Cardiovascular Disease 07/18/18 Danielle Gomez MD [address] [facility], [address] [address] Consulting Physician Pain Management 06/25/22 Fly Onofre MD [facility], [address] [address] Consulting Physician Pulmonary Disease 08/12/23 documented as of this encounter
--- OUTSIDE RECORDS SUMMARY | 2024-08-14 15:36 | XMS_ITS | Data Portability ---
Author Organization [facility] [place] Address [address] [place], [place] [address] Care Team Providers Care Hydraulic Rock Drill Operator Name Role Phone RICA MOTA Primary Care Provider [phone] ARIANNE ALVARADO Fiberglass Grinder AL KAPLAN Manufacturing Plant Technician MARYANNE BECKER Orthopedic Surgeon MAR AVILA Shoe Designer [facility] E Commerce Architect Assessment No assessment recorded. Plan of Treatment Reminders Order Date Submit Date Provider Last Modified By Organization Details Last Modified Time Details Appointments ANY 15 2024 01:00P M Rica Mota MD Not available Not available Not available MEDICARE WELLNESS VISIT 2024 02:30P M Rica Mota MD Not available Not available Not available Lab urinalysi s, dipstick 2024 025 In-Office Order, Internal Use Only DO Not Attach Compendium DO Not Attach Compendium, Do Not Delete/merge, [id number] 07/25/2024 13:19:32 culture, urine 2024 025 [facility], [address], [place], [address], 06/13/2024 21:38:25 urinalysi s, dipstick 2024 025 [email or web address] In-Office Order, Internal Use Only DO Not Attach Compendium DO Not Attach Compendium, Do Not Delete/merge, [id number] 05/16/2024 10:39:23 urinalysi s complete, reflex culture 2024 025 [facility], [address], [place], [address], 05/18/2024 01:38:08 influenza virus A + B + SARS-CoV- 2 (COVID19) Ag panel, rapid IA, upper respirato ry specimen 2024 025 YO In-Office Order, Internal Use Only DO Not Attach Compendium DO Not Attach Compendium, Do Not Delete/merge, [id number] 05/16/2024 17:02:36 hepatitis C virus Ab, serum 2023 024 [facility], [address], [place], [address], 04/07/2024 08:52:02 influenza virus A + B + SARS-CoV- 2 (COVID19) Ag panel, rapid IA, upper respirato ry specimen 2023 024 YO In-Office Order, Internal Use Only DO Not Attach Compendium DO Not Attach Compendium, Do Not Delete/merge, 02/14/2024 14:41:10 Referral None recorded. Procedures None recorded. Surgeries None recorded. Imaging MRI, cervical spine, w/o contrast - patient is CLAUSTROP HOBIC and will need an OPEN MRI 2023 [facility] Patient Access Centralized Scheduling, Centralized Scheduling, [address] , [place], [address], 05/12/2024 12:39:01 Medication Orders amoxicill in 875 mg-potass ium clavulana te 125 mg tablet 2024 [id number] In [facility], [address] [facility] [address], [place], [address], 05/16/2024 10:51:21 azithromy dana 250 mg tablet 2023 024 [facility] In [facility], [facility] [facility], [place], [address], 04/06/2024 14:06:37 amoxicill in 875 mg-potass ium clavulana te 125 mg tablet 2023 [facility] In [facility], [address] [facility], [place], [address], 04/06/2024 14:06:36 Patient TargetsNo targets recorded. Patient Instructions Encounter Date Encounter Id Patient Instructions Last Modified By Organization Details Last Modified Time 02/14/2024 [id number] pneumonia: care instructions Not available 02/14/2024 14:31:56 04/06/2024 [id number] A healthy lifestyle: care instructions Not available 04/06/2024 15:24:45 Medicare Wellnes s Preventive Checklist Not available 04/06/2024 15:15:16 AD8 Dementia Screening Interview Not available 04/06/2024 15:15:16 Hx hyponatremia- - self corrected with last sodium -- done 10/2023-- no orders at this time to recheck-- she reports she plans to get lab testing with her follow up with Dr Kaplan with his next visit to get COVID booster later this month or next ( 3 months from last illness) Not available 04/06/2024 15:26:20 Reason for Referral None Reported. Results Created Date Observation Date Name Description Value Unit Range Abnormal Flag Note LastModifiedBy Organization Detail LastModifiedTime 02/14/2002/14/2024 influ meghna virus A + B + SARS- CoV-2 (COVI D19) Ag panel , rapid IA, upper respi rator y speci men Flu A negati ve Not Available In-Office Order Internal Use Only DO Not Attach Compendium DO Not Attach Compendium, Do Not Delete/merge, [id number] 02/14/2024 14:26:39 02/14/2002/14/2024 influ meghna virus A + B + SARS- CoV-2 (COVI D19) Ag panel , rapid IA, upper respi rator y speci men Flu B negati ve Not Available In-Office Order Internal Use Only DO Not Attach Compendium DO Not Attach Compendium, Do Not Delete/merge, [id number] 02/14/2024 14:26:39 02/14/20 24 02/14/2024 influ meghna virus A + B + SARS- CoV-2 (COVI D19) Ag panel , rapid IA, upper respi rator y speci men Rapid SARS CoV 2 Ag, QL IA, respiratory specimen negati ve Not Available In-Office Order Internal Use Only DO Not Attach Compendium DO Not Attach Compendium, Do Not Delete/merge, [id number] 02/14/2024 14:26:39 04/06/20 24 04/07/2024 HEPAT ITIS C AB W/REF L TO HCV RNA, QN, PCR hepatitis C antibody NON-RE ACTIVE non-re active normal HCV antib lionel was non-r eacti ve. There is no labor atory evide nce of HCV infec tion. In most cases , no furth er actio n is requi red. Howev er, if recen t HCV expos ure is suspe cted, a test for HCV RNA (test code 31883 ) is sugge sted. For addit ional infor selvin quiroz pleas e refer to http: //[facility] romain quiroz.que stdia gnost ics.c om/fa q/FAQ 22v1 (This link is being provi ded for infor selvin forrest/ educa felix l purpo ses only. ) Not Available [address] [address] [place], [address], 04/07/2024 08:52:02 05/16/1905/18/2024 URINA LYSIS , COMPL ETE W/REF JUAN TO CULTU RE color YELLOW yellow normal Not Available [facility] [address] [address] [place], [address], 05/18/2024 01:38:08 05/16/1905/18/2024 URINA LYSIS , COMPL ETE W/REF JUAN TO CULTU RE appearance CLOUDY clear abnormal Not Available [facility] [address] [address] [place], [address], 05/18/2024 01:38:08 05/16/19 25 05/18/2024 URINA LYSIS , COMPL ETE W/REF JUAN TO CULTU RE specific gravity 1.008 1.001- 1.035 normal Not Available [address], [address], 05/18/2024 01:38:08 05/16/19 25 05/18/2024 URINA LYSIS , COMPL ETE W/REF JUAN TO CULTU RE pH 5.5 5.0-8. 0 normal Not Available [address], [address], 05/18/2024 01:38:08 05/16/19 25 05/18/2024 URINA LYSIS , COMPL ETE W/REF JUAN TO CULTU RE glucose NEGATI VE negati ve normal Not Available [address], [address], 05/18/2024 01:38:08 05/16/19 25 05/18/2024 URINA LYSIS , COMPL ETE W/REF JUAN TO CULTU RE bilirubin NEGATI VE negati ve normal Not Available [address], [address], 05/18/2024 01:38:08 05/16/19 25 05/18/2024 URINA LYSIS , COMPL ETE W/REF JUAN TO CULTU RE ketones NEGATI VE negati ve normal Not Available [address], [address], 05/18/2024 01:38:08 05/16/19 25 05/18/2024 URINA LYSIS , COMPL ETE W/REF JUAN TO CULTU RE occult blood 1+ negati ve abnormal Not Available [address], [address], 05/18/2024 01:38:08 05/16/19 25 05/18/2024 URINA LYSIS , COMPL ETE W/REF JUAN TO CULTU RE protein TRACE negati ve abnormal Not Available [address], [address], 05/18/2024 01:38:08 05/16/19 25 05/18/2024 URINA LYSIS , COMPL ETE W/REF JUNA TO CULTU RE nitrite NEGATI VE negati ve normal Not Available [address], [address], 05/18/2024 01:38:08 05/16/19 25 05/18/2024 URINA LYSIS , COMPL ETE W/REF JUAN TO CULTU RE leukocyte esterase 3+ negati ve abnormal Not Available [address], [address], 05/18/2024 01:38:08 05/16/19 25 05/18/2024 URINA LYSIS , COMPL ETE W/REF JUAN TO CULTU RE WBC > OR = 60 /hpf < or = 5 abnormal Not Available [address], [address], 05/18/2024 01:38:08 05/16/19 25 05/18/2024 URINA LYSIS , COMPL ETE W/REF JUAN TO CULTU RE RBC NONE SEEN /hpf < or = 2 normal Not Available [address], [address], 05/18/2024 01:38:08 05/16/19 25 05/18/2024 URINA LYSIS , COMPL ETE W/REF JUAN TO CULTU RE squamous epithelial cells NONE SEEN /hpf < or = 5 normal Not Available [address], [address], 05/18/2024 01:38:08 05/16/19 25 05/18/2024 URINA LYSIS , COMPL ETE W/REF JUAN TO CULTU RE bacteria FEW /hpf none seen abnormal Not Available [facility] [address] [place], [address], 05/18/2024 01:38:08 05/16/19 25 05/18/2024 URINA LYSIS , COMPL ETE W/REF JUAN TO CULTU RE hyaline cast NONE SEEN /lpf none seen normal Not Available [facility] [address] [address] [place], [address], 05/18/2024 01:38:08 05/16/19 25 05/18/2024 URINA LYSIS , COMPL ETE W/REF JUAN TO CULTU RE note This urine was shekhar zed for the prese nce of WBC, RBC, bacte marlys, casts , and other forme d eleme nts. Only those eleme nts seen were repor jason. Not Available [address] [address] [place], [address], 05/18/2024 01:38:08 05/16/19 25 05/18/2024 REFLE XIVE URINE CULTU RE reflexive urine culture CULTU RE INDIC ATED - RESUL TS TO FOLLO W Not Available [address], [address], 05/18/2024 01:38:09 05/16/19 25 05/18/2024 CULTU RE, URINE , ROUTI NE culture, urine, routine SEE NOTE abnormal CULTU RE, URINE , ROUTI NE Micro Numbe r: [id number] Test Statu s: Final Speci men Sourc e: Urine Speci men Quali ty: Adequ ate Resul t: Great er than 100,0 00 CFU/m L of Group B Strep tococ cus isola jason Beta- hemol ytic strep tococ ci are predi ctabl y susce ptibl e to Penic illin and other beta- lacta ms. Susce ptibi lity testi ng not routi duane perfo rmed. Pleas e conta ct the labor atory withi n 3 days if susce ptibi lity testi ng is anuradha ed. Comme nt: Eryth romyc in and clind amyci n are not recom orlando d for treat ment of urina ry tract infec tions , but clind amyci n may be usefu l for treat ment of recto vagin al colon izati on or infec tion. Not Available [employer] [facility] [address], [place], [address], 05/18/2024 01:38:10 05/16/19 25 05/16/2024 influ meghna virus A + B + SARS- CoV-2 (COVI D19) Ag panel , rapid IA, upper respi rator y speci men Flu A negati ve Not Available In-Office Order Internal Use Only DO Not Attach Compendium DO Not Attach Compendium, Do Not Delete/merge, 05/16/2024 10:37:22 05/16/19 25 05/16/2024 influ meghna virus A + B + SARS- CoV-2 (COVI D19) Ag panel , rapid IA, upper respi rator y speci men Flu B negati ve Not Available In-Office Order Internal Use Only DO Not Attach Compendium DO Not Attach Compendium, Do Not Delete/merge, 05/16/2024 10:37:22 05/16/19 25 05/16/2024 influ meghna virus A + B + SARS- CoV-2 (COVI D19) Ag panel , rapid IA, upper respi rator y speci men Rapid SARS CoV 2 Ag, QL IA, respiratory specimen negati ve Not Available In-Office Order Internal Use Only DO Not Attach Compendium DO Not Attach Compendium, Do Not Delete/merge, 05/16/2024 10:37:22 05/16/19 25 05/16/2024 urina lysis , dipst ick Leukocytes Large Not Available In-Offi ce Order Internal Use Only DO Not Attach Compendium DO Not Attach Compendium, Do Not Delete/merge, 05/16/2024 10:32:53 05/16/19 25 05/16/2024 urina lysis , dipst ick Nitrite negati ve Not Available In-Office Order Internal Use Only DO Not Attach Compendium DO Not Attach Compendium, Do Not Delete/merge, 05/16/2024 10:32:53 05/16/19 25 05/16/2024 urina lysis , dipst ick Urobilinogen .2 Not Available In-Of fice Order Internal Use Only DO Not Attach Compendium DO Not Attach Compendium, Do Not Delete/merge, 05/16/2024 10:32:53 05/16/19 25 05/16/2024 urina lysis , dipst ick Protein 30 Not Available In-Office Order Internal Use Only DO Not Attach Compendium DO Not Attach Compendium, Do Not Delete/merge, 05/16/2024 10:32:53 05/16/19 25 05/16/2024 urina lysis , dipst ick pH 5.5 Not Available In-Office Order Internal Use Only DO Not Attach Compendium DO Not Attach Compendium, Do Not Delete/merge, 05/16/2024 10:32:53 05/16/19 25 05/16/2024 urina lysis , dipst ick Blood Modera te Not Available In-Office Order Internal Use Only DO Not Attach Compendium DO Not Attach Compendium, Do Not Delete/merge, 05/16/2024 10:32:53 05/16/19 25 05/16/2024 urina lysis , dipst ick Specific [place] 1.010 Not Available In-Off ice Order Internal Use Only DO Not Attach Compendium DO Not Attach Compendium, Do Not Delete/merge, 05/16/2024 10:32:53 05/16/19 25 05/16/2024 urina lysis , dipst ick Ketone Negati ve Not Available In-Office Order Internal Use Only DO Not Attach Compendium DO Not Attach Compendium, Do Not Delete/merge, 05/16/2024 10:32:53 05/16/19 25 05/16/2024 urina lysis , dipst ick Bilirubin Negati ve Not Available In-Office Order Internal Use Only DO Not Attach Compendium DO Not Attach Compendium, Do Not Delete/merge, 05/16/2024 10:32:53 05/16/19 25 05/16/2024 urina lysis , dipst ick Glucose Negati ve Not Available In-Office Order Internal Use Only DO Not Attach Compendium DO Not Attach Compendium, Do Not Delete/merge, 05/16/2024 10:32:53 05/16/1905/16/2024 urina lysis , dipst ick Appearance Slight ly Cloudy Not Available In-Office Order Internal Use Only DO Not Attach Compendium DO Not Attach Compendium, Do Not Delete/merge, 05/16/2024 10:32:53 05/16/1905/16/2024 urina lysis , dipst ick Color Yellow Not Available In-Office Order Internal Use Only DO Not Attach Compendium DO Not Attach Compendium, Do Not Delete/merge, 05/16/2024 10:32:53 06/13/1906/13/2024 CULTU RE, URINE , ROUTI NE culture, urine, routine SEE NOTE CULTU RE, URINE , ROUTI NE Micro Numbe r: [id number] Test Statu s: Final Speci men Sourc e: Urine Speci men Quali ty: Adequ ate Resul t: No Growt h Not Available [facility] [address] [place], [address], 06/13/2024 21:38:25 07/26/19 25 07/26/2024 CULTU RE, URINE , ROUTI NE culture, urine, routine SEE NOTE CULTU RE, URINE , ROUTI NE Micro Numbe r: [id number] Test Statu s: Final Speci men Sourc e: Urine Speci men Quali ty: Adequ ate Resul t: No Growt h Not Available [facility] [address] [place], [address], 07/26/2024 20:49:22 07/26/19 25 07/25/2024 urina lysis , dipst ick Leukocytes Small Not Available In-Offi ce Order Internal Use Only DO Not Attach Compendium DO Not Attach Compendium, Do Not Delete/merge, 07/25/2024 13:12:12 07/26/19 25 07/25/2024 urina lysis , dipst ick Nitrite negati ve Not Available In-Office Order Internal Use Only DO Not Attach Compendium DO Not Attach Compendium, Do Not Delete/merge, 07/25/2024 13:12:12 07/26/1907/25/2024 urina lysis , dipst ick Urobilinogen .2 Not Available In-Of fice Order Internal Use Only DO Not Attach Compendium DO Not Attach Compendium, Do Not Delete/merge, 07/25/2024 13:12:12 07/26/19 25 07/25/2024 urina lysis , dipst ick Protein Negati ve Not Available In-Office Order Internal Use Only DO Not Attach Compendium DO Not Attach Compendium, Do Not Delete/merge, 07/25/2024 13:12:12 07/26/1907/25/2024 urina lysis , dipst ick pH 6.0 Not Available In-Office Order Internal Use Only DO Not Attach Compendium DO Not Attach Compendium, Do Not Delete/merge, 07/25/2024 13:12:12 07/26/1907/25/2024 urina lysis , dipst ick Blood Negati ve Not Available In-Office Order Internal Use Only DO Not Attach Compendium DO Not Attach Compendium, Do Not Delete/merge, 07/25/2024 13:12:12 07/26/1907/25/2024 urina lysis , dipst ick Specific [place] 1.015 Not Available In-Off ice Order Internal Use Only DO Not Attach Compendium DO Not Attach Compendium, Do Not Delete/merge, 07/25/2024 13:12:12 07/26/19 25 07/25/2024 urina lysis , dipst ick Ketone Negati ve Not Available In-Office Order Internal Use Only DO Not Attach Compendium DO Not Attach Compendium, Do Not Delete/merge, 07/25/2024 13:12:12 07/26/1907/25/2024 urina lysis , dipst ick Bilirubin Negati ve Not Available In-Office Order Internal Use Only DO Not Attach Compendium DO Not Attach Compendium, Do Not Delete/merge, 2025 13:12:12 07/26/19 25 07/25/2024 urina lysis , dipst ick Glucose Negati ve Not Available In-Office Order Internal Use Only DO Not Attach Compendium DO Not Attach Compendium, Do Not Delete/merge, [id number] 07/25/2024 13:12:12 07/26/19 25 07/25/2024 urina lysis , dipst ick Appearance Slight ly Cloudy Not Available In-Office Order Internal Use Only DO Not Attach Compendium DO Not Attach Compendium, Do Not Delete/merge, [id number] 07/25/2024 13:12:12 07/26/19 25 07/25/2024 urina lysis , dipst ick Color Yellow Not Available In-Office Order Internal Use Only DO Not Attach Compendium DO Not Attach Compendium, Do Not Delete/merge, [id number] 07/25/2024 13:12:12 05/12/19 25 05/12/2024 MRI, cervi mannie spine , w/o contr ast No observ ation record ed. [facility] ([facility]uro[facility] Radiology) [address] , [place], [address], 05/17/2024 15:12:55 06/13/19 25 06/09/2024 DEXA No observ ation record ed. [email or web address] Not Available 2024 21:57:35 06/13/19 25 06/09/2024 bone densi ty No observ ation record ed. Not Available 2024 09:27:36 06/23/19 25 06/22/2024 elect rocar diogr am No observ ation record ed. [facility] [address], [place], [address], 06/23/2024 09:14:01 07/06/19 25 07/05/2024 pulmo nary funct ion test proce dure (PROC ) No observ ation record ed. [facility] [address], [place], [address], 07/06/2024 08:13:37 07/09/19 25 07/07/2024 trans -thor acic echoc ardio gram (TTE) (PROC ) No observ ation record ed. [address] , [place], [address], 07/10/2024 08:53:23 07/11/19 25 07/10/2024 meme can cardi olite stres s test (PROC ) No observ ation record ed. [address] [facility] [address] [place] [address] [address], [place], [address], 07/10/2024 14:12:58 07/12/19 25 07/10/2024 nucle ar stres s test No observ ation record ed. [address] Nuclear Medicine [address] [place] [address] , [place], [address], 07/12/2024 08:30:10 07/18/19 25 07/17/2024 nerve condu ction veloc ity (PROC ) No observ ation record ed. [facility] Therapy [address] [place] [address] [address], [place], [address], 07/31/2024 17:00:02 Result Notes None recorded. 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 Rica Mota MD Attn: Accounting ,[address] [place], [address] , [facility] 4 10:57:37 Prediabe alfreda 478136548 Active 2019 Rica Mota MD Attn: Accounting ,[address] [place], [address] , [facility] 5 08:13:17 Drug withdraw al headache 15961274 Completed 202109/09/2023 Rica Mota MD Attn: Accounting ,[address] [place], [address] , [facility] 18:16:48 Family history of Stomach cancer 885092335 Active 2022 father Rica Mota MD Attn: Accounting ,[address] [place], [address] , [facility] 10:57:37 Mass of neck 067074019 Completed 202209/09/2023 Rica Mota MD Attn: Accounting ,[address] [place], [address] , [facility] 18:16:58 Dyspnea 247946145 Completed 202209/09/2023 Rica Mota MD Attn: Accounting ,[address] [place], [address] , [facility] 18:16:55 Pain of left shoulder joint 14610995300 779121 Completed 202209/09/2023 Rica Mota MD Attn: Accounting ,[address] [place], [address] , [facility] 18:17:01 History of atrial fibrilla tion 293176357 Active 2022 Rica Mota MD Attn: Accounting ,[address] [place], [address] , [facility] 10:57:37 History of total knee arthropl asty 21556047189 05 Active 2018 Rica Mota MD Attn: Accounting ,[address] [place], [address] , [place] [facility] 5 08:54:12 Chronic atrial fibrilla tion 373118106 Active 2017 Rica Mota MD Attn: Accounting ,[address] [facility], [place], [address] , [facility] 5 08:54:03 History of bariatri c surgical procedur e 492819953 Completed 201501/24/2016 Rica Mota MD Attn: Accounting ,[address] [facility], [place], [address] , [place] [facility] 3 09:32:22 Instabil ity of joint of right knee 49156545163 16558 Completed 202307/10/2024 Removal Reason: knee replaced Rica Mota MD Attn: Accounting ,[address] [facility], [place], [address] , [facility] 5 08:54:56 Incomple te right bundle branch block 494990509 Active 2019 Rica Mota MD Attn: Accounting ,[address] [place], [address] , [facility] 5 08:54:10 Osteoart hritis of left knee joint 58444215333 9109 Completed 201807/10/2024 Removal Reason: knee replaced Rica Mota MD Attn: Accounting ,[address] [place], [address] , [facility] 5 08:55:06 Magnetic resonanc e imaging of brain abnormal 465310990 Completed 202009/09/2023 Rica Mota MD Attn: Accounting ,[address] [place], [address] , [place] [facility] 5 08:54:27 Body mass index 40+ - severely obese 894819218 Active 2019 Rica Mota MD Attn: Accounting ,[address] [place], [address] , [place] [facility] 4 18:17:07 History of laparosc opic adjustab le gastric banding 816091893 Active 2018 Rica Mota MD Attn: Accounting ,[address] [place], [address] , [facility] 5 08:54:15 Exposure to asbestos Completed 201909/09/2023 Rica Mota MD Attn: Accounting ,[address] [place], [address] , [place] [facility] 4 18:17:14 Obstruct silvana sleep apnea syndrome 36067806 Active 2017 Rica Mota MD Attn: Accounting ,[address] [place], [address] , [facility] 5 08:54:33 Osteopor osis 69745826 Active [address] Vilma Mota MD Attn: Accounting ,[address] [place], [address] , [facility] 5 09:27:32 Allergic rhinitis caused by pollen 79746718 Active 2018 Rica Mota MD Attn: Accounting ,[address] [place], [address] , [facility] 5 08:54:08 Diastoli c dysfunct ion 4973870 Active 2018 Rica Mota MD Attn: Accounting ,[address] [place], [address] , [place] [facility] 5 08:54:01 Magnetic resonanc e imaging of brain abnormal 715075452 Active 2020 Rica Mota MD Attn: Accounting ,[address] [place], [address] , [facility] 5 08:54:27 Non-smok er 7114625 Active 2010 Rica Mota MD Attn: Accounting ,[address] [place], [address] , [place] [facility] 5 08:54:31 Hiatal hernia 01803534 Active 2018 Rica Mota MD Attn: Accounting ,[address] [place], [address] , [facility] 5 08:54:18 Knee joint prosthes is present 50825109714 2 Active 2023 Rica Mota MD Attn: Accounting ,[address] [place], [address] , [facility] 5 08:54:23 Dysuria 06825721 Completed 201502/08/2017 Rica Mota MD Attn: Accounting ,[address] [place], [address] , [facility] 7 10:28:09 Bronchos pasm 9639758 Completed 201106/18/2015 Location : None;Sev erity: Moderate ;Progres s: Stable;A dded By: Rica Mota;Add to Current Problems : NO Not Available [facility] 7 08:25:55 Shoulder joint pain 250207065 Completed 201208/21/2012 Location : None;Sev erity: Moderate ;Progres s: Stable;A dded By: Rica Mota;Add to Current Problems : NO Not Available [facility] 7 08:25:55 Screenin g for osteopor osis Completed 201203/05/2013 Location : None;Sev erity: Moderate ;Progres s: Stable;A dded By: Rica Mota;Add to Current Problems : NO Not Available [facility] 7 08:25:55 Allergic urticari a 06838342 Completed 201306/22/2013 Location : None;Sev erity: Moderate ;Progres s: Stable;A dded By: Rica Mota;Add to Current Problems : NO Not Available [facility] 7 08:25:55 Cough 29690490 Completed 201302/09/2014 Location : None;Sev erity: Moderate ;Progres s: Stable;A dded By: Rica Mota;Add to Current Problems : YES Rica Mota MD Attn: [facility] ,[address] [place], [place], [address] [place] [address] , [facility] 7 10:28:13 Bronchop neumonia [id number] Completed 201401/17/2015 Location : None;Sev erity: Moderate ;Progres s: Stable;A dded By: Rica Mota;Add to Current Problems : YES Not Available [facility] 7 08:25:55 Gastroes ophageal reflux disease [id number] Active 2011 Location : None;Sev erity: Moderate ;Progres s: Stable;A dded By: Rica Mota;Add to Current Problems : YES Rica Mota MD Attn: [facility] ,[address], [place], [address] [place] [address] , [facility] 4 18:14:50 Fever [id number] Completed 201406/18/2015 Location : None;Sev erity: Moderate ;Progres s: Stable;A dded By: Rica Mota;Add to Current Problems : YES Not Available [facility] 7 08:25:55 Vitamin D deficien cy [id number] Active 2014 Location : None;Sev erity: Moderate ;Progres s: Stable;A dded By: Rica Mota;Add to Current Problems : YES Rica Mota MD Attn: [facility] ,[address], [place], [address] [place] [address] , [facility] 4 10:57:37 Candidal vulvovag initis [id number] Completed 201403/18/2015 Location : None;Sev erity: Moderate ;Progres s: Stable;A dded By: Rica Mota;Add to Current Problems : YES Not Available [facility] 7 08:25:56 Actinic keratosi s [id number] Active 2014 Location : None;Sev erity: Moderate ;Progres s: Stable;A dded By: Rica Mota;Add to Current Problems : YES Rica Mota MD Attn: [facility] ,[address] [facility], [place], [place], [address] [place] [address] , [facility] 4 10:57:37 Screenin g for disorder Completed 201302/08/2017 Location : None;Sev erity: Moderate ;Progres s: Stable;A dded By: Rica Mota;Add to Current Problems : YES Rica Mota MD Attn: [facility]ing ,[address], [place], [address] [place] [address] , [facility] 7 10:28:05 Pure hypercho lesterol emia [id number] Active 2014 Location : None;Sev erity: Moderate ;Progres s: Stable;A dded By: Rica Mota;Add to Current Problems : YES Rica Mota MD Attn: [facility] ,[address], [place], [address] [place] [address] , [facility] 5 08:13:17 Acute sinusiti s [id number] Completed 201510/17/2015 Location : None;Sev erity: Moderate ;Progres s: Stable;A dded By: Rica Mota;Add to Current Problems : YES Not Available [facility] 7 08:25:56 Spinal stenosis in cervical region [id number] Active 2015 Location : None;Sev erity: Moderate ;Progres s: Stable;A dded By: Rica Mota;Add to Current Problems : YES Rica Mota MD Attn: [facility] ,[address], [place], [address] [place] [address] , [facility] 4 10:57:37 Acute sinusiti s [id number] Completed 201406/08/2014 Location : None;Sev erity: Moderate ;Progres s: Stable;A dded By: Clarissa Joyner;Lacey dd to Current Problems : YES Not Available [facility] 7 08:25:56 Pure hypercho lesterol emia [id number] Completed 201101/17/2015 Location : None;Sev erity: Moderate ;Progres s: Stable;A dded By: Aide Mcpherson;Add to Current Problems : YES Not Available [facility] 7 08:25:56 Knee pain Completed 201401/17/2015 Location : None;Sev erity: Moderate ;Progres s: Stable;A dded By: Aide Mcpherson;Add to Current Problems : YES Not Available [facility] 7 08:25:56 Essentia l hyperten ravindra [id number] Completed 201405/08/2014 Location : None;Sev erity: Moderate ;Progres s: Stable;A dded By: Fátima Haque;Add to Current Problems : YES Not Available [facility] 7 08:25:56 Benign essentia l hyperten ravindra [id number] Completed 201207/21/2012 Location : None;Sev erity: Moderate ;Progres s: Stable;A dded By: Anahy Owens; Add to Current Problems : NO Not Available [facility] 7 08:25:56 Marquez de la Tourette 's syndrome [id number] Active 2011 Location : None;Sev erity: Moderate ;Progres s: Stable;A dded By: Anahy Owens; Add to Current Problems : NO Rica Mota MD Attn: [facility]ing ,[address] [facility] [address] , [facility] 10:57:37 Acute sinusiti s [id number] Completed 201506/18/2015 Location : None;Sev erity: Moderate ;Progres s: Stable;A dded By: Anahy Owens; Add to Current Problems : YES Not Available [facility] 7 08:25:56 Benign essentia l hyperten ravindra [id number] Active 2011 Location : None;Sev erity: Moderate ;Progres s: Stable;A dded By: Anahy Owens; Add to Current Problems : YES Rica Mota MD Attn: [facility]ing ,[address] [place], [address] , [facility] 4 10:57:37 Acute upper respirat ory infectio n of multiple sites Completed 201510/17/2015 Location : None;Sev erity: Moderate ;Progres s: Stable;A dded By: Anahy Owens; Add to Current Problems : YES Not Available [facility] 7 08:25:56 Otogenic otalgia [id number] Completed 201511/17/2015 Location : None;Sev erity: Moderate ;Progres s: Stable;A dded By: Anahy Owens; Add to Current Problems : YES Not Available [facility] 7 08:25:56 Restless legs [id number] Active 2015 Location : None;Sev erity: Moderate ;Progres s: Stable;A dded By: Anahy Owens; Add to Current Problems : NO Rica Mota MD Attn: [facility]ing ,[address] [place], [address] , [facility] 4 10:57:37 Shoulder joint pain [id number] Completed 201201/15/2013 Location : None;Sev erity: Moderate ;Progres s: Stable;A dded By: Tammy Siddiqui i;A dd to Current Problems : NO Not Available [facility] 7 08:25:57 Fibromyo sitis [id number] Completed 201201/15/2013 Location : None;Sev erity: Moderate ;Progres s: Stable;A dded By: Tammy Siddiqui i;A dd to Current Problems : NO Not Available [facility] 7 08:25:57 Fever [id number] Completed 201305/08/2014 Location : None;Sev erity: Moderate ;Progres s: Stable;A dded By: Tammy Siddiqui i;A dd to Current Problems : YES Not Available [facility] 7 08:25:57 Acute pharyngi tis [id number] Completed 201410/05/2014 Location : None;Sev erity: Moderate ;Progres s: Stable;A dded By: Tammy Siddiqui i;A dd to Current Problems : YES Not Available [facility] 7 08:25:57 Acute bronchit is [id number] Completed 201510/17/2015 Location : None;Sev erity: Moderate ;Progres s: Stable;A dded By: Tammy Siddiqui i;A dd to Current Problems : YES Not Available [facility] 7 08:25:57 Neck pain [id number] Completed 201502/09/2016 Location : None;Sev erity: Moderate ;Progres s: Stable;A dded By: Tammy Siddiqui i;A dd to Current Problems : YES Not Available [facility] 7 08:25:57 Low back pain [id number] Active 2011 Location : None;Sev erity: Moderate ;Progres s: Stable;A dded By: Tammy Siddiqui i;A dd to Current Problems : YES Rica Mota MD Attn: [facility] ,[address] [place], [address] , [facility] 4 10:57:37 Allergic rhinitis caused by pollen 82383756 Completed 201102/04/2012 Location : None;Sev erity: Moderate ;Progres s: Stable;A dded By: Adrienne Jalloh;Add to Current Problems : NO Rica Mota MD Attn: [facility]ing ,[address] [place], [address] , [facility] 5 08:54:08 Otogenic otalgia [id number] Completed 201307/24/2013 Location : None;Sev erity: Moderate ;Progres s: Stable;A dded By: Maddi Jade;Add to Current Problems : NO Not Available [facility] 7 08:25:57 Headache [id number] Completed 201309/18/2013 Location : None;Sev erity: Moderate ;Progres s: Stable;A dded By: Maddi Jade;Add to Current Problems : NO Not Available [facility] 7 08:25:57 Acute sinusiti s [id number] Completed 201307/24/2013 Location : None;Sev erity: Moderate ;Progres s: Stable;A dded By: Joselyn Billingsley;Add to Current Problems : NO Not Available [facility] 7 08:25:57 Acute maxillar y sinusiti s [id number] Completed 201404/29/2015 Location : None;Sev erity: Moderate ;Progres s: Stable;A dded By: Joselyn Billingsley;Add to Current Problems : YES Not Available [facility] 7 08:25:57 Dysuria 61094475 Completed 201310/15/2013 Location : None;Sev erity: Moderate ;Progres s: Stable;A dded By: Evie Cheung;Add to Current Problems : NO Rica Mota MD Attn: Accounting ,[address] [place], [address] , [facility] 7 10:28:09 Localize d infectio n of skin AND/OR subcutan eous tissue [id number] Completed 201201/15/2013 Location : None;Sev erity: Moderate ;Progres s: Stable;A dded By: Kayley Aparicio;Claude d to Current Problems : NO Not Available [facility] 7 08:25:57 Acute cystitis [id number] Completed 201207/28/2012 Location : None;Sev erity: Moderate ;Progres s: Stable;A dded By: Kenzie Power; Add to Current Problems : NO Not Available [facility] 7 08:25:58 Clinical finding Completed 201212/25/2012 Location : None;Sev erity: Moderate ;Progres s: Stable;A dded By: Maddi Jade;Add to Current Problems : NO Not Available [facility] 7 08:25:58 Edema of lower extremit y 096865946 Completed 201609/06/2018 Rica Mota MD Attn: [facility] ,[address] [place], [address] , [facility] 9 16:15:16 Cough [id number] Completed 201602/08/2017 Rica Mtoa MD Attn: [facility]ing ,[address] [place], [address] , [facility] 7 10:28:13 History of atypical nevus [id number] 01 Completed 201605/19/2017 MARISEL Colon Attn: Accounting ,[address] [place], [address] , [facility] 8 12:01:00 Problem Notes None recorded. Procedures Surgical History Date Name Laterality Status Provider Name and Address Organization Details Recorded Time 09/16/19 24 total knee replacement completed Rica Mota MD Attn: Accounting, [address] [place], [address], [facility] 09/20/2023 09:11:27 06/30/19 24 Shave Biopsy completed Rica Mota MD Attn: Accounting, [address] [place], [address], [facility] 06/30/2023 14:39:18 04/15/19 24 Cryosurgery Warts/Skin Tags completed Rica Mota MD Attn: Accounting, [address] [place], [address], [facility] 04/15/2023 11:14:53 12/14/19 21 lumbar puncture completed Johnnie Lewis MA [facility] 12/25/2020 13:54:04 09/14/19 19 replacement of right knee joint completed Rica Mota MD Attn: Accounting, [address] [place], [address], [facility] 09/13/2018 12:37:06 09/02/19 17 Excision and closure completed Rica Mota MD Attn: Accounting, [address] [place], [address], [facility] 09/01/2016 16:56:07 01/16/20 16 Shave Biopsy completed Rica Mota MD Attn: Accounting, [address] [place], [address], [facility] 01/16/2016 18:32:37 07/11/19 15 Arthroscopic Surgery completed Rica Mota MD Attn: Accounting, [address] [place], [address], [facility] 09/03/2016 00:03:09 Total hysterectomy completed Rica cordon MD Attn: Accounting, [address] [place], [address], [facility] 09/03/2016 00:01:09 Tonsillectomy completed Rica Mota MD Attn: Accounting, [address] [place], [address], [facility] 09/03/2016 00:01:28 Tubal Ligation completed Rica Mota MD Attn: Accounting, [address] [place], [address], [facility] 09/03/2016 00:01:43 Cholecystectomy completed Rica Mota MD Attn: Accounting, [address] [place], [address], [facility] 09/03/2016 00:02:23 Partial removal of colon completed Rica Mota MD Attn: Accounting, [address] [place], [address], [facility] 09/03/2016 00:03:48 Unlisted procedure breast completed Rica Mota MD Attn: Accounting, [address] [place], [address], [facility] 09/03/2016 00:04:39 Imaging Results Imaging Date Name Status LastModified by Organization Details LastModified Time 05/12/2024 MRI, cervical spine, w/o contrast completed [facility] (Neuroscience Radiology) [facility] [place] [address], [address], 05/17/2024 15:12:55 06/09/2024 DEXA completed [email or web address] Information no t available 06/12/2024 21:57:35 06/09/2024 bone density completed Information not available 06/19/2024 09:27:36 06/22/2024 electrocardiogram completed [facility] [address], [place], [address], 06/23/2024 09:14:01 07/05/2024 pulmonary function test procedure (PROC) completed [address], [place], [address], 07/06/2024 08:13:37 07/07/2024 trans-thoracic echocardiogram (TTE) (PROC) completed [address] [place], [address], 07/10/2024 08:53:23 07/10/2024 lexiscan cardiolite stress test (PROC) completed [address] Cardiology [address] [place], [place], [address], 07/10/2024 14:12:58 07/10/2024 nuclear stress test completed [address] Nuclear Medicine [address] [place], [address], 07/12/2024 08:30:10 07/17/2024 nerve conduction velocity (PROC) completed [facility] Physical Therapy [address], [place], [address], 07/31/2024 17:00:02 Procedure Notes None recorded. Medical Equipment None Reported. Allergies Allergen ID Allergen Name Allergen Category Reaction Reaction Severity Criticality Documentation Date Start Date Code Code System Note Provider Name and Address Organization Details Recorded Time 570660 butalbita l medicatio n palpitati ons Not available Not available 06/19/2021 RxNorm felt jitte ry-- this was combi natio n of EMILIA Beaulieu [facility] [place] [facility] 14:23:04 [id number] pseudoeph edrine Not available Not available Not available Not available 08/27/2022 8896 RxNorm high blood press ure Rica Mota MD Attn: [facility]in [facility]iki,[address] [facility], [place], [address], [facility] 3 18:02:13 89994 Medicinal product containin g cephalosp alvarado and acting as antibacte rial agent (product) medicatio n hives Not available Not available 01/16/2016 58218 9009 SNOMED Anahy Reedma [facility], [facility] 6 17:23:42 79148 codeine medicatio n rash vomiting Not available Not available Not available 01/16/2016 2670 RxNorm Tammy Siddiquii ma null, [facility] 7 13:44:10 93878 Prozac medicatio n rash Not available Not available 01/16/2016 63640 RxNorm Anahy Reedma [facility], [facility] 6 17:24:27 26818 Substance with sulfonami de structure and antibacte rial mechanism of action (substanc e) medicatio n rash Not available Not available 01/16/2016 15238 8003 SNOMED Anahy Reedma null, [facility] 6 17:24:47 06729 codeine phosphate medicatio n rash moderate Not available 04/15/20162011 2672 RxNorm React ion: rash, vomit ing;S everi ty: Moder ate; Comme nt: Aller gy Type: Aller gy; Not Available [facility] 7 03:46:37 Medications Name Sig Start Date Stop Date Status Note LastModified by Organization Details LastModified Time carisopro dol 350 mg tablet TAKE 1 TABLET BY MOUTH EVERY DAY AT BEDTIME FOR 30 DAYS 09/07 completed Not Available Not Available Not Available amoxicill in 500 mg capsule TAKE FOUR CAPSULES ONE HOUR PRIOR TO ANY DENTAL PROCEDUR E 04/06 completed Not Available Not Available Not Available haloperid ol 0.5 mg tablet 11/28 completed Not Available Not Available Not Available promethaz ine-DM 6.25 mg-15 mg/5 mL oral syrup Take 1 teaspoon by mouth q 4 to 6 hr 11/28 completed Not Available Not Available Not Available prednison e 10 mg tablet PLEASE SEE ATTACHED FOR DETAILED DIRECTIO NS 11/05 completed Not Available Not Available Not Available doxycycli ne hyclate 100 mg capsule TAKE 1 CAPSULE BY MOUTH TWICE A DAY FOR 7 DAYS 12/02 completed Not Available Not Available Not Available clindamyc in HCl 300 mg capsule 09/24 completed Not Available Not Available Not Available trazodone 50 mg tablet TAKE 1 TABLET BY MOUTH EVERY DAY IN THE EVENING active Not Available Not Available No t Available cetirizin e 10 mg tablet Take 1 tablet every day by oral route. 12/14 completed Not Available Not Available Not Available lisinopri l 20 mg-hydroc hlorothia zide 12.5 mg tablet TAKE 1 TABLET BY MOUTH EVERY DAY 12/25 completed Not Available Not Available Not Available azithromy dana 250 mg tablet TAKE 2 TABLETS BY MOUTH TODAY, THEN TAKE 1 TABLET DAILY FOR 4 DAYS DIRECTED 04/06 completed Not Available Not Available Not Available tizanidin e 4 mg tablet TAKE ONE BY MOUTH EVERY 12 HOURS NEEDED 03/18 completed Not Available Not Available Not Available fluconazo le 150 mg tablet Take 1 tablet by oral route. 02/06 completed Not Available Not Available Not Available benzonata te 200 mg capsule TAKE 1 CAPSULE BY MOUTH THREE TIMES A DAY FOR 7 DAYS. active Not Available Not Available No t Available Vicodin 5 mg-500 mg tablet Take 1 tablet(s ) by mouth q4h prn 01/25 completed RxNorm: 231964;A llow Substitu tion: True Not Available Not Available Not Available valacyclo vir 1 gram tablet TAKE TWO TABLETS BY MOUTH EVERY 12 HOURS FOR 1 DAY active Not Available Not Available No t Available clarithro mycin 500 mg tablet Take 1 tablet(s ) by mouth q12h 06/21 completed RxNorm: 767465;A llow Substitu tion: True Not Available Not Available Not Available hydrocodo ne 5 mg-acetam inophen 325 mg tablet Take 1 tablet every 6 hours by oral route as needed. 05/08 completed Not Available Not Available Not Available ondansetr on HCl 8 mg tablet Take 1 tablet every 8 hours by oral route as needed for 2 days. 06/29 completed Not Available Not Available Not Available meloxicam 15 mg tablet TAKE ONE TABLET BY MOUTH ONCE DAILY 12/30 completed Not Available Not Available Not Available lisinopri l 20 mg tablet TAKE 1 TABLET BY MOUTH EVERY DAY active Not Available Not Available No t Available famotidin e 40 mg tablet Take 1 tablet BID q OD alternat ing with Pantopra zole 40mg 01/15 completed Not Available Not Available Not Available prednison e 20 mg tablet Take 1 tablet twice a day by oral route for 5 days. 06/18 completed Not Available Not Available Not Available lovastati n 40 mg tablet TAKE ONE TABLET BY MOUTH EVERY EVENING WITH A MEAL active Not Available Not Available No t Available fluoroura cil 5 % topical cream AFFECTED TO AREAS-ON ARMS TWICE DAILY FOR 14 DAYS active Not Available Not Available No t Available sertralin e 100 mg tablet Take 1 tablet every day by oral route. 10/14 completed Not Available Not Available Not Available terconazo le 0.8 % vaginal cream 07/16 completed Not Available Not Available Not Available clindamyc in HCl 150 mg capsule 11/28 completed Not Available Not Available Not Available penicilli n V potassium 500 mg tablet 04/06 completed Not Available Not Available Not Available haloperid ol 1 mg tablet TAKE 1 TABLET BY MOUTH 4 TIMES A DAY. active Not Available Not Available No t Available topiramat e 25 mg tablet Take 1 tablet every day by oral route. 04/26 completed Not Available Not Available Not Available potassium chloride ER 10 mEq tablet,ex tended release TAKE 1 TABLET BY MOUTH EVERY DAY 02/23 completed Not Available Not Available Not Available ciproflox acin 250 mg tablet Take 1 tablet every 12 hours by oral route for 7 days. 05/12 completed Not Available Not Available Not Available acyclovir 400 mg tablet Take 1 tablet 3 times a day by oral route for 7 days. 11/05 completed Not Available Not Available Not Available ciproflox acin 500 mg tablet Take 1 tablet(s ) by mouth q12h for 10 days 12/28 completed Not Available Not Available Not Available tramadol 50 mg tablet TAKE 1 TABLET 3 TIMES A DAY BY ORAL ROUTE NEEDED. active Not Available Not Available No t Available ketorolac 30 mg/mL (1 mL) injection solution Inject 2 mL every 6 hours by intramus cular route. 12/12 completed Not Available Not Available Not Available butalbita l-acetami nophen-ca ffeine 50 mg-325 mg-40 mg tablet TAKE 1 TABLET BY MOUTH EVERY 6 HOURS FOR 3 DAYS 06/19 completed heart racing Not Available Not Available Not Available Prevacid 15 mg capsule,d elayed release Take 1 capsule( s) by mouth daily 12/10 completed RxNorm: 026772;A llow Substitu tion: True Not Available Not Available Not Available hydrocort isone acetate 25 mg rectal supposito ry 09/24 completed Not Available Not Available Not Available ketorolac 10 mg tablet TAKE 1 TABLET BY MOUTH EVERY 6 HOURS NEEDED FOR 5 DAYS 01/13 completed Not Available Not Available Not Available Kenalog 40 mg/mL suspensio n for injection Take 1.5 mL by injectio n route as directed for 1 day. 06/22 completed Not Available Not Available Not Available alendrona te 35 mg tablet TAKE ONE TAB BY MOUTH ONCE WEEKLY 06/30 completed Not Available Not Available Not Available oxycodone -acetamin ophen 5 mg-325 mg tablet TAKE 1 TABLET BY MOUTH EVERY 6 HOURS NEEDED FOR PAIN 11/07 completed Not Available Not Available Not Available propranol ol 10 mg tablet TAKE 1 TABLET BY MOUTH TWICE A DAY 11/03 completed Not Available Not Available Not Available amoxicill in 875 mg tablet Take 1 tablet every 12 hours by oral route. 02/03 completed Not Available Not Available Not Available famotidin e 20 mg tablet Take 1 tablet by mouth twice daily in AM and at HS x 1 mo 06/23 completed RxNorm: 139752;A llow Substitu tion: True Not Available Not Available Not Available estradiol 1 mg tablet 1 daily 10/12 completed Not Available Not Available Not Available triamcino lone acetonide 0.1 % dental paste 01/15 completed Not Available Not Available Not Available dicyclomi ne 20 mg tablet TAKE 1 TABLET BY MOUTH 4 TIMES A DAY 06/30 completed Not Available Not Available Not Available baclofen 10 mg tablet TAKE 1 TABLET 3 TIMES A DAY BY ORAL ROUTE. active Not Available Not Available No t Available benzonata te 100 mg capsule Take 1-2 capsules q 8 hours prn for cough 06/18 completed Not Available Not Available Not Available doxycycli ne monohydra te 100 mg capsule Take 1 capsule( s) by mouth bid 11/28 completed Not Available Not Available Not Available pantopraz ole 40 mg tablet,de layed release Take 1 tablet alternat ing with the Famotidi ne for 2 weeks 05/12 completed RxNorm: 700597;A llow Substitu tion: True Not Available Not Available Not Available Fluticaso ne Propionat e (Nasal) 50 mcg/DOSE inhaler [place] 1 spray every day by intranas al route. 12/30 completed Not Available Not Available Not Available clotrimaz ole-betam ethasone 1 %-0.05 % topical cream 04/30 completed Not Available Not Available Not Available lisinopri l 10 mg tablet Take 1 tab daily 04/18 completed RxNorm: 571394;A llow Substitu tion: True Not Available Not Available Not Available lansopraz ole 30 mg capsule,d elayed release TAKE 1 CAPSULE BY MOUTH TWICE A DAY NEEDED active Not Available Not Available No t Available promethaz ine 25 mg/mL injection solution Take 25 mg every day by injectio n route. 06/29 completed Not Available Not Available Not Available diclofena c potassium 50 mg tablet Take 1 tablet 3 times a day by oral route with meals for 30 days. 02/10 completed wants to discuss this medicati on before taking Not Available Not Available Not Available lisinopri l 20 mg-hydroc hlorothia zide 25 mg tablet TAKE 1 TABLET BY MOUTH EVERY DAY 06/30 completed Not Available Not Available Not Available aspirin 81 mg chewable tablet Take 1 tablet po daily 06/30 completed RxNorm: 070581;A llow Substitu tion: True Not Available Not Available Not Available diclofena c sodium 75 mg tablet,de layed release TAKE 1 TABLET BY MOUTH TWICE A DAY 03/18 completed on ELIQUIS Not Available Not Available Not Available mupirocin 2 % topical ointment APPLY TO AFFECTED AREA 3 TIMES A DAY 12/17 completed Not Available Not Available Not Available furosemid e 20 mg tablet TAKE 1 TABLET BY MOUTH EVERY DAY 02/23 completed Not Available Not Available Not Available azelastin e 137 mcg (0.1 %) nasal spray ADMINIST ER 1 SPRAY INTO EACH NOSTRIL 2 TIMES A DAY DIRECTED active Not Available Not Available No t Available lisinopri l 10 mg-hydroc hlorothia zide 12.5 mg tablet TAKE 1 TABLET BY MOUTH EVERY DAY 05/18 completed Not Available Not Available Not Available levofloxa dana 500 mg tablet Take 1 tablet(s ) by mouth daily for 7 days 11/28 completed Not Available Not Available Not Available levofloxa dana 750 mg tablet Take 1 tablet(s ) by mouth daily for 5 days 08/18 completed RxNorm: 327820;A llow Substitu tion: True Not Available Not Available Not Available methylpre dnisolone 4 mg tablets in a dose pack TAKE 6 TABLETS ON DAY 1 DIRECTED ON PACKAGE AND DECREASE BY 1 TAB EACH DAY FOR A TOTAL OF 6 DAYS 09/23 completed Not Available Not Available Not Available albuterol sulfate HFA 90 mcg/actua tion aerosol inhaler INHALE 2 PUFFS NEEDED FOR WHEEZING OR SHORTNES S OF BREATH active Not Available Not Available No t Available ipratropi um bromide 42 mcg (0.06 %) nasal spray 04/06 completed Not Available Not Available Not Available ketorolac 60 mg/2 mL intramusc ular solution Inject 2 mL by intramus cular route as directed for 1 day. 06/22 completed Not Available Not Available Not Available propranol ol 20 mg tablet TAKE 1 TABLET BY MOUTH TWICE A DAY active Not Available Not Available No t Available haloperid ol 2 mg tablet TAKE 1 TABLET BY MOUTH 2 TIMES A DAY. active Not Available Not Available No t Available cefdinir 300 mg capsule Take 1 capsule po bid for 10 days 04/10 completed RxNorm: 735971;A llow Substitu tion: True Not Available Not Available Not Available sertralin e 50 mg tablet TAKE 1 TABLET BY MOUTH EVERY DAY AT NIGHT active Not Available Not Available No t Available doxycycli ne hyclate 100 mg tablet TAKE 1 TABLET BY MOUTH TWICE A DAY FOR 7 DAYS 12/30 completed Not Available Not Available Not Available glucosami ne-chondr oitin 500 mg-400 mg tablet 1 {tbl} twice a day by oral route. active Not Available Not Available No t Available amoxicill in 875 mg-potass ium clavulana te 125 mg tablet TAKE 1 TABLET BY MOUTH TWICE A DAY FOR 7 DAYS active Not Available Not Available No t Available nabumeton e 500 mg tablet TAKE ONE TABLET BY MOUTH TWICE A DAY (STOP MELOXICA M) 07/12 completed Not Available Not Available Not Available amoxicill in 500 mg-potass ium clavulana te 125 mg tablet TAKE 1 TABLET BY MOUTH EVERY 12 HOURS FOR 7 DAYS 08/27 completed Not Available Not Available Not Available Topamax 100 mg tablet Take 1 tablet(s ) by mouth bid 02/20 completed RxNorm: 941038;A llow Substitu tion: True Not Available Not Available Not Available escitalop yanet 10 mg tablet TAKE 1 TABLET BY MOUTH EVERY DAY 08/27 completed Not Available Not Available Not Available escitalop yanet 20 mg tablet TAKE 1 TABLET BY MOUTH EVERY DAY 12/25 completed Not Available Not Available Not Available Premarin 0.625 mg/gram vaginal cream 04/23 completed Not Available Not Available Not Available escitalop yanet 5 mg tablet Take 1 tablet every day by oral route. 04/30 completed Not Available Not Available Not Available metoprolo l tartrate 25 mg tablet 04/13 completed Not Available Not Available Not Available nitrofura ntoin monohydra te/macroc rystals 100 mg capsule TAKE 1 CAPSULE BY MOUTH TWICE A DAY FOR 5 DAYS 08/27 completed Not Available Not Available Not Available loratadin e 1 daily active Not Available Not Available Not Available calcium take 2 per day active Not Available Not Available No t Available Haldol 01/03 completed RxNorm: 991279;A llow Substitu tion: True Not Available Not Available Not Available hydrocodo ne 5 mg-acetam inophen 300 mg tablet 1-2 tabs po q 4-6 hours 05/24 completed Not Available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 range of motion improvemen t Allergic rhinitis 622880 04 J30.89 I will take over prescribin g from Dr Kamran Zayas de la Tourette's syndrome 9841816 F95.2 lack of availabili lty of HALDOL-- to review options with Dr Wilson Restrictiv e lung disease 08698378 J98.4 per pulmonary Patient on oxygen 308950 009 Z99.81 per pulmonary- - starting OXYGEN [id number] Rica Mota MD [facility] [address] [place] [address] 09/22/2018 15:19:05 09/22/2018 16:23:41 Chronic back pain 061213867 M54.9 refill printed for the hydrocodon e-- use sparingly and reminded of narcotic contract and to decline RX for narcotic from orthopedis t [id number] Rica Mota MD [facility] [address] [place] [address] 11/28/2018 16:03:45 11/28/2018 16:49:58 Chronic back pain 311506981 M54.9 refill printed for the hydrocodon e-- use sparingly and reminded of narcotic contract and to decline RX for narcotic from orthopedis t [id number] Rica Mota MD [facility] [address] [place] [address] 12/14/2018 14:26:37 12/14/2018 15:30:49 Low back pain 365707023 M54.5 Cervical spondylosis 387 326975 M47.812 Viral uppe r respiratory tract infection 699687967 J06.9 discussed that most likely viral and just treat symptoms and should resolve in 10-14 days. If she gets worse, runs a fever or past 14 days, she can fill script verbalized unstanding and agrees with plan [id number] Rica Mota MD [facility] [address] [place] [address] 03/06/2019 16:11:24 03/07/2019 08:36:41 Benign essential hypertension 6990091 I10 no med change and recheck in 6 months Gastroesop hageal reflux disease 413579525 K21.9 no complaints related to this today-- using lansoprazo le for this-- on NSAID to protect GI tract-- Pure hypercholesterolemia 902819392 E78.00 Chronic back pain 090614 002 M54.9 refill printed for the hydrocodon e-- use sparingly and reminded of narcotic contract and to decline RX for narcotic from orthopedis t Administra tion of influenza vaccine 89734635 Z23 Painless r ectal bleeding 388396529 K62.5 [id number] Rica Mota MD [facility] [address] [facility] [address] 05/08/2019 16:15:00 05/09/2019 09:39:18 Restrictive lung disease 10436647 J98.4 per pulmonary Benign ess ential hypertension 5185723 I10 no med change and recheck in 6 months Spinal thomas nosis in cervical region 15898672 M48.02 use of the you will change to the tramadol 50 m three times a day and take with tylenol 2 three times a day along with the tramadol and continue with home exercise program for range of motion improvemen t Low back pain 398508804 M54.5 you will change to the tramadol 50 m three times a day and take with tylenol 2 three times a day along with the tramadol [id number] Rica Mota MD [facility] [address] [facility] [address] [place] [address] 05/24/2019 14:14:18 05/24/2019 17:10:55 Acute otitis media 5269365 H66.92 Sinusitis 95664535 J32.9 Take antibiotic s as prescribed until gone. For females, use an extra form of control such as condoms while taking antibiotic s. Cool mist vaporizer in bedroom. Menthol cough drops, such as Reeves s Mentholyp tus, to help with cough, and open nasal passages. Nasal saline spray, Nasogel, or rinse as directed on package to help loosen secretions . Gargle and spit warm salt water as needed to soothe throat and cut secretions . Robitussin , generic, as directed on package to help loosen secretions , soothe throat, and help cough. Try Robitussin CF. Equal parts honey and lemon juice mixture; give one teaspoon as needed for cough. Over the counter Tylenol or Ibuprofen as directed on package as needed for pain and fever. Over the counter decongesta nts such as Pseudophed rine HCL ( do not take if you have high blood pressure) in the mornings or Benadryl at bedtime as directed on package to help dry secretions . RTC if no improvemen t [id number] Rica Mota MD [facility] [address] [facility] [address] [place] [address] 06/19/2019 15:35:55 06/20/2019 11:31:04 Acute upper respiratory infection 56628839 J06.9 treat symptoms- and note from work-- to be off work in accordance with policies of [facility] [id number] Rica Mota MD [facility] [address] [facility] [address] [place] [address] 06/22/2019 18:07:47 06/23/2019 09:46:04 Acute bronchitis 30437855 J20.9 give antibiotic -- ZPAK and a medrol dose pack [id number] Rica Mota MD [facility] [address] [place] [address] 09/25/2019 09:13:02 09/25/2019 13:34:35 Restless legs 59873232 G25.81 doing fine Moderate r ecurrent major depression 74025208 F33.1 cont with trazadone for depression and for insomnia related issues. Adjustment of the current treatement for depression since an increase in the hot sweats Hot sweats 270760201 R61 decrease the dose of ESCITALOPR AM for the summer and consider adjusting if anxiety increases or mood becomes depressed. This med could contribute to the hot sweats Headache 76174396 R51 will cut back on CAFFEINE in tea and OK to have extra caffeine to treat a severe headache as needed Cramp in lower leg 30405 8009 R25.2 will eat foods more rich in potassium to see if this will shaunna the cramping. You decline potassium supplement at this time since you are managing the cramping without taking another pill Gastroesop hageal reflux disease 866350487 K21.9 no complaints related to this today-- using lansoprazo le for this and it was just refilled-- on NSAID to protect GI tract-- Pure hypercholesterolemia 466690348 E78.00 last check 6 mo ago and doing well Spinal thomas nosis in cervical region 97564608 M48.02 continue tramadol 50 mg three times a day and take with tylenol 2 three times a day along with the tramadol and continue with home exercise program for range of motion improvemen t-- this problem may be contributi ng to your frequent headaches. Contact me if not able to manage this pain. You will need refill of TRAMADOL in October/ t-- pharmacy will need to request [id number] [address] [place] [address] 10/20/2019 09:22:19 10/23/2019 11:36:10 Viral screening 659317045 Z11.59 D/w pt the current pandemic of COVID-19 and call for social isolation in order to blunt the curve and minimize risk and spread. Encouraged patient and family to take restrictio ns seriously. They have verbalized understand ing of such. Viral syndrome 736770764 B34.9 [id number] Rica Mota MD [facility] [address] [place] [address] 10/31/2019 15:38:48 10/31/2019 16:51:13 Fever with chills 723406097 R50.9 set up for COVID TESTING again -- patient will call to set this up. Tylenol for fever control. Get extra rest and plenty of fluids. Socially isolate and self quarantine until results are known for the COVID test [id number] Roxanne Russell MD [facility] [address] [place] [address] 11/01/2019 12:11:22 11/02/2019 07:14:07 Suspected COVID-19 833415288 Z03.872 [id number] Rica Mota MD [place] [address] [address] 12/21/2019 14:15:53 12/25/2019 13:12:22 Olecranon bursitis 014054559 M70.21 discussed ice compressio n and avoiding retrauma-- follow up needed if pain or if redness or drainage Otalgia of left ear 1089 234182 998117 H92.02 will empiricall y treat for sinus or ear infection given the patient complaint and history-- if not better-- will call for in office visit. Monitor for fever or change in pattern of infection. Noted neg COVID testing on 12/16/2019-- done pre PFTs [id number] Rica Mota MD [place] [address] [facility] [address] [place] [address] 02/02/2020 13:11:32 02/02/2020 15:22:46 Acute urinary tract infection 943633355 N39.0 [id number] Rica Mota MD [place] [address] [facility] [address] [place] [address] 02/27/2020 12:21:43 02/27/2020 16:29:42 Dysuria 64736087 R30.0 [id number] Rica Mota MD [place] [address] [facility] [address] [place] [address] 03/28/2020 13:18:03 03/29/2020 10:08:37 Benign essential hypertension 9100265 I10 no med change right now. Will check BP at home this weekend and call in. She is agreeable to checking 1x/week. Cramp in lower limb 4499 53243 R25.2 Suggested trying an electrolyt e drink or tonic water and stretching 2x/day. Will reach out if it does not improve. Depressive disorder 3544 9007 F32.9 Increase escitalopr am as she is experienci ng worse symptoms of depression -- Will follow up in 1 mo to evaluate if medication change helped. Would benefit from talking to a mental health profession al-- referral to be sent. Long-term drug therapy 622386156 Z79.899 Patient needs blood work. Pure hypercholesterolemia 540168958 E78.00 Last check over 1 year ago, need to recheck [id number] Rica Mota MD [facility] [address] [place] [address] 04/30/2020 13:53:26 04/30/2020 18:45:39 Benign essential hypertension 6816529 I10 check BP at home weekly Moderate r ecurrent major depression 89114772 F33.1 cont with current escitalopr am and declined referral-- no med change-- nighttime- - do not start using electronic s -- reading is OK when awakened at night Spinal thomas nosis in cervical region 51782598 M48.02 continue tramadol 50 mg three times a day as needed and take with tylenol 2 three times a day along with the tramadol if needed and continue with home exercise program for range of motion improvemen t-- this problem may be contributi ng to your frequent headaches. Contact me if not able to manage this pain. [id number] Rica Mota MD [facility] [address] [place] [address] 07/01/2020 13:59:59 07/01/2020 16:05:47 Pain of left heel 3813123386 396502 M79.672 crutches and apply ice 20 mi on and 20 min off. and limit ambulation . Will need cast boot if stress fracture or heal spur [id number] Rica Mota MD [facility] [address] [place] [address] 08/01/2020 16:00:13 08/02/2020 09:39:11 Benign essential hypertension 9955599 I10 BP is OK Pain in left foot 802413 1509 30954 M79.672 cont cast boot and will check MR-- for more worrisome causes of the continued left heel pain that did not respond to conservati ve measures of 4 weeks of cast boot with WBAT [id number] Rica Mota MD [facility] [address] [facility] [address] [place] [address] 11/13/2020 13:25:56 11/13/2020 15:37:53 Acute sinusitis 66926925 J01.90 rec she get covid tested given symptoms verbalized understand ing and will get tested.giv en hx of asthma will treat empiricall ycont with inhaler and IBU/tyleno l as needed if no improvemen t over the next couple days, RTCI also advised not to take Claritin D due to having hx of HTN verbalized understand ing. Reviewed the following recommenda tions: -Stay home and separate from others as much as possible. -Monitor your symptoms and seek medical attention for trouble breathing, persistent chest pain, confusion, or bluish lips or face. -Wear a mask if you must be around other people. -Wash your hands often for 20 seconds with soap and water and clean high-touch surfaces daily [id number] Rica Mota MD [facility] [address] [facility] [address] [place] [address] 12/10/2020 16:18:32 12/11/2020 08:58:51 Headache 80268845 R51.9 Advised pt to get urgent MRI of brain to eval for central vein thrombosis -- post covid but has had immunizati onSince STAT MRI can not be arranged at [facility], she is advised by provider to go to ERPt has concerns about expenses and no deductible at the ERx of Covid 11/17-- received MONOCLONAL ANTIBODY INFUSION on 11/18/2020- CASIRIVAMA B/IMDEVIMA BPt may have venous thrombosis with the PERRY and current complaint. TORADOL for the pain and using tramadol as needed at home. [id number] Rica Mota MD [facility] [address] [facility] [address] [place] [address] 12/19/2020 15:17:23 12/20/2020 10:10:06 Hyponatremia 18901800 E87.1 follow up on sodium since low on last labs in hospital-- and [facility] the sodium is normal Fatigue 14012149 R53.83 will check CBC with complaint of fatigue today Vitamin D deficiency 347 19578 E55.9 will check vitamin D [id number] Rica Mota MD [facility] [address] [place] [address] 12/25/2020 13:04:45 12/25/2020 17:19:34 Acute upper respiratory infection 49651367 J06.9 treat symptoms-t rial use of rescue inhaler given one year ago-- she will try this and follow up if not better.she requests a note for her work-- 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 She will request the letter once the results are backUse tylenol and or heating pad as needed for pain or bodyreview of URI care instructio ns during phone interview [id number] Rica Mota MD [facility] [address] [place] [address] 01/13/2021 16:15:22 01/14/2021 11:17:28 Cramp in lower limb 325065770 R25.2 will follow up once labs testing is back could be statin, if ck normal, will stop statin for 2 weeks, to see of pain improves. [id number] Rica Mota MD [facility] [address] [place] [address] 02/06/2021 13:31:52 02/06/2021 17:17:42 Acute upper respiratory infection 29606437 J06.9 treat symptoms-C laritin D and tylenol as needed for ear ache and sinus painUse tylenol and or heating pad as needed for pain or bodyreview of URI care instructio ns during phone interview Bilateral earache 413227 003 H92.03 tylenol as needed for ear ache [id number] Rica Mota MD [facility] [address] [facility] [address] [place] [address] 02/17/2021 13:20:40 02/17/2021 17:41:03 Acute sinusitis 44521418 J01.90 reviewed sinus infection care and will call if not better or if further questions arise-- trying the saline irrigation and antibiotic [id number] Rica Mota MD [facility] [address] [facility] [address] [place] [address] 04/01/2021 11:26:55 04/01/2021 17:54:34 Administration of influenza vaccine 68540717 Z23 [id number] Rica Mota MD [facility] [address] [facility] [address] [place] [address] 06/13/2021 14:03:59 06/13/2021 16:37:23 Tension-type headache 457636541 G44.209 Went to ER for headache this morning. Was given Dietrich, toradol shot, rizitripta n, and reglan. She says none of this helped her pain. They also did a CT scan which was normal. Will give 3 day supply medication -avoid caffeine, do not take till tomorrow if pain is still present, call back Wednesday or go to ER if symptoms worsen. Get lots of sleep, avoid stress, drink plenty of water. F/U w/ Dr Mota next week. [id number] Rica Mota MD [facility] [address] [facility] [address] [place] [address] 06/19/2021 16:16:52 06/20/2021 09:54:06 Drug withdrawal headache 67886524 G44.40 I advise to lower frequency of tramadol to several a week ( approximat milind 1/2 of the number previously taken) to be used only for severe neck and musculoske letal pain--and not to take the tramadol daily to avoid onset of rebound Kamilah reports she does not need a tramadol refill at this timeI explained the concept of withdrawl head ache and that any pain reliever may trigger this responseno alternativ e narcotic advised or givenconti nue the daily diclofenac with no other NSAID advised to be taken with it Injury of toe 654441122 S99.922A owen tape and recheck if not better in 2 months [id number] Rica Mota MD [facility] [address] [place] [address] 08/05/2021 10:17:27 08/05/2021 14:17:24 Acute upper respiratory infection 12462809 J06.9 Tested neg for COVID. Perform proper hand hygiene to keep others healthy. Get plenty of rest, push fluids, vaporizer, saline nasal spray, robitussin for cough prn, tylenol for PERRY prn, call back if persistent colored nasal drainage or sputum, fevers, sinus pain, SOB. [id number] Rica Mota MD [facility] [address] [place] [address] 09/05/2021 13:39:05 09/05/2021 16:28:25 Acute otitis media 9210113 H66.92 Hard to tell via phone if this is infection vs fluid build up. Will treat for both. If no improvemen t after current treatment plan please f/u in office. Serous otitis media 8032 7007 H65.92 Spent time educating on allergic rhinitis including symptoms and treatment. Symptoms include: watery, running nose and post nasal drip causing sore throat or cough. Discussed the importance of taking a daily allergy medication or using daily nasal spray in the spring time to prevent sinus congestion build up. 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 [id number] Rica Mota MD [facility] [address] [place] [address] 09/23/2021 13:57:23 09/23/2021 17:01:50 Acute bronchitis 71090811 J20.9 Recommend repeat COVID testing if symptoms have not improved in 2 days. I believe this is most likely a viral bronchitis with her dry cough, however, patient would like abx treatment because she feels really run down. If she is still not better with current treatment plan she HAS to make an inperson apt for evaluation . Use albuterol as needed. Increase fluid intake Use humidifier Typically acute bronchitis is viral. It may take 3-4 weeks for symptoms to resolve. Generally treatment is aimed at treating symptoms such as cough, and wheezing. [id number] Rica Mota MD [facility] [address] [place] [address] 12/25/2021 13:41:29 12/29/2021 09:13:46 Benign essential hypertension 2295554 I10 BP is OK Spinal thomas nosis in cervical region 92594272 M48.02 continue tramadol 50 mg three times a day as needed and take with tylenol 2 three times a day along with the tramadol if needed and continue with home exercise program for range of motion improvemen t-- this problem may be contributi ng to your frequent headaches. Contact me if not able to manage this pain. Prediabetes 058693951 R7 3.03 weight loss with diet -- no drug for weight loss is advised-- lifestyle that is healthy advisd Moderate r ecurrent major depression 72858302 F33.1 try lowering the escitalopr am to 10 mg daily and in 6 months-- will stop if doing well or taper to 5 mg daily Immunization advised 310 152131 Z71.9 advised to get COVID BIVALENT and FLU SHOT and SHINGRIX [id number] Rica Mota MD [facility] [address] [place] [address] 06/30/2022 11:48:37 06/30/2022 15:44:41 Benign essential hypertension 2262255 I10 BP is OK Moderate r ecurrent major depression 05784204 F33.1 try lowering the escitalopr am to 5 mg daily and stop med in 6 weeks- doing well after 6 weeks -- OK to break 10 mg tab in 1/2 and take that for 6 weeks [id number] MARISEL Adams [facility] [address] [place] [address] 08/03/2022 14:27:48 08/03/2022 15:59:41 Urinary symptoms 837815412 R39.9 Acute urin efraín tract infection 101354150 N39.0 [id number] Rica Mota MD [facility] [address] [place] [address] 08/19/2022 14:58:14 08/19/2022 15:16:54 Urinary tract infectious disease 24122146 N39.0 f/u urine [id number] Rica Mota MD [facility] [address] [facility] [address] [place] [address] 08/27/2022 14:08:58 08/28/2022 10:53:53 Spasm 29340937 R25.2 Long-term current use of diuretic 3856754474 8095323 Z79.899 start potassium Er and snow check labs today Administra tion of pneumococcal vaccine 30373737 Z23 Gastroesop hageal reflux disease without esophagitis 854100477 K21.9 advised to take pantoprazo le once a day-- and use the second tab daily as needed [id number] Rica Mota MD [facility] [address] [facility] [address] [place] [address] 09/14/2022 14:54:31 09/15/2022 10:37:14 Acute upper respiratory infection 99683702 J06.9 treat symptoms-U se tylenol as needed for pain or bodyreview of URI care instructio nstake the AUGMENTIN twice a day as prescribed treat nose as outlined by ENTcall if not better with this treatment History of pneumonia 161 974474 Z87.01 I treated URI now rather than to postpone until worse [id number] Rica Mota MD [facility] [address] [facility] [address] [place] [address] 11/05/2022 14:44:25 11/05/2022 21:51:07 Mass of neck 567999098 R22.1 Pt reports a mass in the neckPt educated on stretches to relief tenderness and pain in the neck-advis ed to do this everydayPt encouraged to continue to see her chiropract or US of the neck ordered to rule out pathology Pain of le ft shoulder joint 7143001311 9571301 M25.512 pt educated on stretches to perform on her shoulder Dyspnea 922049578 R06.00 last echo on file was in EKG ordered in office --- an acute DE was ruled out [id number] Rica Mota MD [facility] [address] [place] [address] 12/17/2022 14:14:28 12/17/2022 21:42:22 Suspected COVID-19 686375225 Z20.822 Acute uppe r respiratory infection 45438612 J06.9 Tested neg for COVID. currently on abx for URI. Discussed that this may be allergic or viral in origin-pt understand s and still wishes to proceed with abx therapy. Get plenty of rest, push fluids, vaporizer, saline nasal spray, robitussin for cough prn, tylenol for PERRY prn, call back if persistent colored nasal drainage or sputum, fevers, sinus pain, SOB. [id number] Rica Mota MD [facility] [address] [facility] [address] [place] [address] 12/30/2022 10:20:48 12/30/2022 22:15:17 Adult health examination 329897504 Z00.00 Health Risk Assessment collected and reviewed Benign ess ential hypertension 1836746 I10 BP is OK Prediabetes 317176011 R7 3.03 weight loss with diet -- no drug for weight loss is advised-- lifestyle that is healthy once again is advised Pure hypercholesterolemia 589952715 E78.00 good control Chronic hyponatremia 503 80970 E87.1 drink more water Chronic pain syndrome 37 3618135 G89.4 [id number] Rica Mota MD [facility] [address] [place] [address] 02/23/2023 15:48:38 02/24/2023 12:29:42 Muscle spasm of cervical muscle of neck 6825630954 04 M62.838 Point tenderness to proximal trapezius muscle - no point tenderness to cervical spineRecom mend ice, MR PRN, heat, and stretches PRN. Consider physical therapy, massage therapy, and pain management return in the future.Fol low up if no improvemen t within 2 weeks [id number] Rica Mota MD [facility] [address] [place] [address] 03/18/2023 11:39:54 03/19/2023 10:01:40 Muscle spasm of head and/or neck 03227507 M62.838 will cont to use TRAMADOL as needed-- and to change muscle relaxer and follow up in 1 month-- stop TIZANIDINE - we reviewed the starting of ELIQUIS and need to avoid all oral NSAIDs- she declines a short term RX for OXYCODONE and would prefer not to take a narcoticpt ed and follow up 1 month [id number] Rica Mota MD [facility] [address] [place] [address] 04/15/2023 10:17:02 04/15/2023 17:17:42 Spinal stenosis in cervical region 90725440 M48.02 continue to take tramadol 50 mg three times a day as needed and take with tylenol 2 three times a day along with the tramadol if needed and start CIROPRACTI C care this next week and continue with home exercise program for range of motion improvemen t-- this problem may be contributi ng to your frequent headaches. Stop BACLOFENSt art SOMA at bedtime if covered with insurance or if affordable Actinic keratosis 975215 007 L57.0 with concern for SCC -- treated and photograph ed before treatment- - she will follow up with her dermatolog ist in June-- to call sooner if there is an issueshe has had numerous treatments with Liq nitrogen-- no new care instructio ns given today but informed consent was obtained prior to treatment [id number] Rica Mota MD [facility] [address] [place] [address] 05/18/2023 10:41:26 05/19/2023 11:09:11 Spinal stenosis in cervical region 66102527 M48.02 improved pain with chirpracti c care every 2 weeks-- OK to stop muscle relaxers Otalgia of left ear 1010 039040 H92.02 reassured ear drums look OK Marquez de la Tourette's syndrome 2780767 F95.2 she will have management with neurologis t-- get a new night time oral appliance/ splint-- to avoid clenching teeth and old mouth guard deteriorat ed Instabilit y of joint of right knee [id number] 446884 M25.361 per ortho and to have PT [id number] Rica Mota MD [facility] [address] [facility] [address] [place] [address] 06/30/2023 13:45:26 07/01/2023 10:12:16 Spinal stenosis in cervical region 12956097 M48.02 improved pain with chiropract ic care every 2 weeks-- OK to stop muscle relaxers Benign ess ential hypertension 9413175 I10 BP is OK Change in skin lesion 39 6947733 L98.9 shave and cautery of suspicious lesion given painful lesion and Hx of BCC-- she is not slated to see Dr Holt until August 2023-- results sent to him also Nasal vestibulitis 84401 000 J34.89 due to chronic nature of the sore in the right nares and the tenderness -- she is advised to use BACTROBAN ( has at home) use Three Will use the topical antibiotic for 10 days in the mean time [id number] Rica Mota MD [facility] [address] [facility] [address] [place] [address] 09/08/2023 15:45:42 09/10/2023 16:16:58 Benign essential hypertension 1373724 I10 BP is OK Gastroesop hageal reflux disease 023719277 K21.9 pre-op this could be an issue--sta ble at this time Marquez de la Tourette's syndrome 5464781 F95.2 she will have management with neurologis t-- get a new night time oral appliance/ splint-- to avoid clenching teeth and old mouth guard deteriorat ed History of atrial fibrillation 975027346 Z86.79 jese-op -- this could be an issue-- plan per cardiologi st Prediabetes 521579325 R7 3.03 weight loss with diet -- no drug for weight loss is advised-- lifestyle that is healthy once again is advised Restrictiv e lung disease 37757292 J98.4 per pulmonary- - stable at present Spinal thomas nosis in cervical region 09700810 M48.02 improved pain at this time-- with noting that surgery affecting her neck possible History of laparoscopic adjustable gastric banding 998813895 Z98.84 weight is 220 #--stable Obstructiv e sleep apnea syndrome 47335975 G47.33 use mouth guard as prescribed from dentist and care with Dr Jamous-- this could be an issue jese- operativel y Osteoarthr itis of knee 671488188 M17.9 left knee-- planned TKR per Dr Becker Pre-surger y evaluation 022808601 Z01.818 form completed and pre op labs reviewed-- borderline WBC but no findings or symptoms to suggest infection- - will monitor for now-- no need to recheck CBC unless new findings or symptoms noted [id number] Rica Mota MD [facility] [address] [place] [address] 11/04/2023 15:32:08 11/05/2023 10:34:01 Atypical chest pain 415844430 R07.89 likely GI cause-- will start SIMETHICON E OTC and use TRAMADOL as needed-- OK to eat low fat diet. Furthter plans pending outcome of these measures and lab eval-- I advised if worsening complaint or additional symptoms of SOB or fever or cough-- go to ER History of atrial fibrillation 594739894 Z86.79 discussed anatomy and physiology of A FIB - this is NOT likely the cause of her pain -- will check ECG-- she sounds to be in NSR at this time History of lacunar cerebrovascular accident 2757405076 9101 Z86.73 with Hx CVA and Hx of A FIb-- we reviewed CHADs2 score and indication s for ANTICOAGUL ATION and she is advised to further discuss with cardiologi st-- I support medication to prevent stroke with discussion of risk/ benefit [id number] Rica Mota MD [facility] [address] [place] [address] 11/08/2023 09:59:20 11/08/2023 13:48:55 Itching of skin 064347056 L29.9 discussed off label use of antihistam phuong as needed ( up to 4 / day of LORATIDINE but note sedation with med possible -- OK for topical steroid as needed and hot water to destabiliz e histamine from cells to allow about 6 hours of relief from the itching Leukocytosis 738837062 D 72.829 reviewed CBC results and will treat with antibiotic course and further plans pending outcome C-reactive protein above reference range 3786835133 09419 R79.82 reviewed and will treat with antibiotic course and further plans pending outcome Thoracic back pain 22567 8004 M54.6 better at this time-- ECG is pending but CXR was neg for pneumonia/ infiltrate -- clinically better and with small sore healing under left axilla-- patient informed that that lesion may have been trigger for her pain [id number] Rica Mota MD [facility] [address] [facility] [address] [place] [address] 12/03/2023 11:18:31 12/03/2023 15:34:45 Acute rhinosinusitis 500751875 J00 Suspect allergic vs viral URI at this time. Spent time educating on allergic rhinitis including symptoms and treatment. Symptoms include: watery, running nose and post nasal drip causing sore throat or cough. Discussed the importance of taking a daily allergy medication or using daily nasal spray in the spring time to prevent sinus congestion build up. 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 May call back after 7-10 days if no improvemen t for abx therapy. [id number] Rica Mota MD [facility] [address] [facility] [address] [place] [address] 12/29/2023 13:56:06 12/29/2023 22:50:59 Suspected COVID-19 424666707 Z20.822 Negative COVID test in office today. Recommend retesting w/ home test daily. If you get a positive test- please call and let me know for treatment. Pursue OTC treatment for now. Get plenty of rest, push fluids, vaporizer, saline nasal spray, robitussin for cough prn, tylenol for PERRY prn, call back if persistent colored nasal drainage or sputum, fevers, sinus pain, SOB. [id number] Rica Mota MD [facility] [address] [place] [address] 02/14/2024 13:58:19 02/14/2024 17:15:43 Acute upper respiratory infection 79833838 J06.9 treat symptoms-U se tylenol as needed for pain or bodyreview of URI care instructio nstake the AUGMENTIN twice a day as prescribed call if not better with this treatment Pneumonia 546098318 J18. 9 pt ed and avoid contagion [id number] Rica Mota MD [facility] [address] [place] [address] 04/06/2024 13:50:31 04/07/2024 09:41:31 Adult health examination 487557953 Z00.00 Health Risk Assessment collected and reviewed At [facility] ed risk for falls 047648712 Z91.81 I advised to see a PT for 2 visits related to HEP for balance- she not able at this time to go to PT since caregiver for her -- she will contact me/office if she wishes order to be sent Chronic neck pain 769041 0430 107 M54.2 will re-image the C Spine with an MRI since has not had testing for 5 years-- complainin g of an increase of the post neck pain over the last year-- has had pain management in the past-- she reports she prefers an OPEN MRI since she is claustroph obic Obesity 206174780 E66.9 lifestyle discussed Hepatitis C screening 41 1846958 Z11.59 routine screen for Hepatitis C ordered Marquez de la Tourette's syndrome 7964706 F95.2 she will have management with neurologis t Prediabetes 434418750 R7 3.03 weight loss with diet --screen needs to be planned again in October 2024-- lifestyle that is healthy once again is advised [id number] Rica Mota MD [facility] [address] [facility] [place] [address] 05/16/2024 10:08:58 05/17/2024 09:55:30 Acute urinary tract infection 378736786 N39.0 -to start abx today for UTI and URI since patient is high risk for pneumonia. -encourage d to increase fluids.-of fered pyridium but pt declines.- will f/u after culture is back if different abx needed. Upper resp iratory infection 59269290 J06.9 - pt has long standing hx of pneumonia. Will give abx even though length of symptoms is only x2 days.-Enco uraged pt to increase water intake, use a humidifier /vaporizer , or homeopathi c remedies such as warm tea or honey.-mary e IBU or tylenol for pain/heada kandy- Patient encourage to monitor symptoms and seek emergency medical care if she develops difficulty breathing, chest pain or pressure, or any concerning symptoms- Pt to f/u if symptoms worsen or do not improve in 2-3 days. [id number] Rica Mota MD [facility] [address] [place] [address] 06/12/2024 11:38:21 06/12/2024 12:10:09 Urinary tract infectious disease 82489321 N39.0 [id number] Rica Mota MD [facility] [address] [place] [address] 07/25/2024 13:10:44 07/25/2024 15:29:04 Urinary symptoms 844106636 R39.9 Health Concerns Section Related Observation LastModified by Organization Detai ls LastModified Time None Recorded Concern Status LastModified by Organization Details LastModified Time None Recorded Advance Directives Directive N: Payers Encounter Date Sequence Insurance Name Policy Number Policy Kirby Covered Member ID Kirby Member ID Guarantor Name 02/14/2024 1 [employer] (MEDICARE REPLACEMENT/ ADVANTAGE - HMO) [id number] Lis Choudhury [id number] Lis Choudhury 04/06/2024 1 [employer] (MEDICARE REPLACEMENT/ ADVANTAGE - HMO) [id number] Lis Choudhury [id number] Lis Darcie Choudhury 05/16/2024 1 [employer] - [employer] (MEDICARE REPLACEMENT/ ADVANTAGE - HMO) [id number] Lis Choudhury [id number] Lis Choudhury 06/12/2024 1 [employer] - [employer] (MEDICARE REPLACEMENT/ ADVANTAGE - HMO) [id number] Lis Choudhury [id number] Lis Choudhury 07/25/2024 1 [employer] - [employer] (MEDICARE REPLACEMENT/ ADVANTAGE - HMO) [id number] Lis Choudhury [id number] Lis Choudhury Notes Date Note Type Note Provider Name and Address Organization Details Recorded Time 02/14/2024 text/html CoughReported bypatient.Quality:robert ested cough Severity:moderate Duration:intermittent Context:non-smoker Modifying Factors:OTC medication; tylenol Associated Symptoms:fever;chills; chest pain Started Wednesday night, pt feels she may have aspirated in her sleep.She reports that her Chest hurts, Fever yesterday morning Rica Mota MD Attn: Accounting[address] [facility], [place], [address], [facility] 02/14/2024 14:32:38 04/06/2024 text/html MAW 2Reported bypatient.Diet and Nutrition:healthy diet Fracture Risk:no history of fractures; no sudden unexplained fractures Concentration and Memory:no decreased concentrating ability; no memory lapses or loss; does not forget words Speech/Motor difficulties:no speech difficulties; no difficulty expressing formulated concepts; no difficulty with fine manipulative tasks; no difficulty writing/copying; no slowed reaction time; does not knock things over when trying to pick them up Hearing:no loss of hearing Vision:no vision problems; needs eye exam Activities of Daily Living:able to bathe with limited or no assistance; able to contol urination and bowels; able to dress with limited or no assistance; able to feed self with limited or no assistance; able to get out of chair or bed with limited or no assistance; able to groom with limited or no assistance; able to toilet with limited or no assistance Instrumental Activities of Daily Living:able to do house work with limited or no assistance; able to grocery shop with limited or no assistance; able to manage medications with limited or no assistance; able to manage money with limited or no assistance; able to prepare meals with limited or no assistance; able to use the phone with limited or no assistance Falls Risk Assessment:no frequent falls while walking; no fall in the past year; no fall since last visit; no dizziness/vertigo Home Safety:no unsafe marilia hazzards; no unsafe stairs; working smoke/CO detectors; practicing 'safer sex'; no fire arms; has hand bars in the bathroom/shower; good lighting in the home here for an annual check up Rica Mota MD Attn: Accounting[address] [facility], [place], [address], [facility] 04/07/2024 14:12:20 05/16/2024 text/html Upper Respirator y SymptomsReported bypatient.Location:hea d; chest; throat Quality:productive cough(in the morning);sharp throat pain;congested Severity:mild Onset/Timing:actual date: (05/15/24) Context:no foreign travel; non-smoker;sick contact() Associated Symptoms:no shortness of breath; no wheezing; no change in number of pillows needed to sleep at night; no sweats; no fever; no significant weight gain; no significant weight loss; no sore throat; no vomiting; no rash; no nausea;morning cough;diarrheaUrinary FrequencyReported bypatient.Quality:symp toms worse during the day (worse in the morning when first getting up) Severity:moderate Duration:every 15 minutes Onset/Timing:actual date: (05/15/23 in the morning) Alleviating Factors:nothing gives relief Associated Symptoms:no abdominal pain; no back pain; no constipation; no blood in the urine; no hesitancy; normal libido; no nausea; no vomiting; no urine odor; no incontinence; no fever; no urge incontinence;chills;di arrhea;dribbling;pain during urination;incomplete emptying of bladder;nocturia;strai wade;feelings of urgency GRETCHEN Rolle Attn: Accounting[address] [place], [address], [facility] 05/16/2024 10:55:12 OBGyn Episode No OBEpisode recorded.
--- OUTSIDE RECORDS SUMMARY | 2024-08-14 15:36 | XMS_ITS | Clinical Summary ---
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 Name Role Phone Unavailable Primary Care Provider Unavailabl e Social History Tobacco Use Types Packs/Day Years Used Date Smoking Tobacco: Never Assessed Comments Unknown Sex and Gender Information Value Date Recorded Sex Assigned at Not on file Legal Sex Female 12:05 PM CDT Gender Identity Not on file Sexual Orientation Not on file Plan of Treatment Health Maintenance Due Date Last Done Comments DEXA Bone Density 1955 Hepatitis C Virus (HCV) Screening 1955 Colonoscopy 2001 Colorectal Cancer Screening 2001 Cologuard 2006 Immunochemical Fecal Occult Blood 2006 Mammogram 2006 Zoster Immunization (1 of 2) 2006 Pneumococcal Immunization (50+ years) (3 of 3 - PCV20 or PCV21) 01/18/2020 01/17/2015, 01/22/2004 Influenza Immunization (#1) 12/12/202312/12, 03/06/2019, 03/08/2018, Additional history exists SARS-COV-2 Immunization ( - season) 2023 06/18/2020, 05/28/2020 Respiratory Syncytial Virus (RSV) Immunization (Adult) (1 - 1-dose 75+ series) 12/16/2031 DTaP/Tdap/Td Immunization Discontinued 01/17/2015, Pneumococcal Immunization Combined Discontinued 01/17/2015, 01/22/2004 TdaP Immunization Completed 01/17/2015 Hepatitis B Immunization Aged Out No longer eligible based on patient's age to complete this topic Meningococcal Immunization (ACWY) Aged Out No longer eligible based on patient's age to complete this topic Rotavirus Immunization Aged Out No lo nger eligible based on patient's age to complete this topic
== END 2024-08-14 14:56 | disposition home or self-care (01) ==
LOC: ANHIMG 14:57
PROVIDERS: PCP Family Medicine; Visit Provider Obstetrics & Gynecology
DX: Z12.31 Encounter for screening mammogram for malignant neoplasm of breast (principal)
CPT/HCPCS: 77063; 77067